=== PATIENT | male | born 1925 | race African-American/Black ===

== ENCOUNTER 2016-12-04 16:27 | Observation (INO) ==
[2016-12-04 17:55] LABS: Basophils # 0.1 K/mcL (0.0-0.2); Basophils % 0.8 %; Eosinophils # 1.1 K/mcL (0.0-0.6); Eosinophils % 17.5 %; Hematocrit 41.2 % (37.5-50.1); Hemoglobin 13.3 g/dL (12.9-16.9); Immature Granulocytes % 0.2 % (0-4); Lymphocytes # 1.6 K/mcL (0.6-4.6); Lymphocytes % 24.2 %; Mean Corpuscular HGB Conc 32.3 g/dL (31.6-35.5); Mean Corpuscular Hemoglobin 31.4 pg (28.0-33.3); Mean Corpuscular Volume 97.2 fL (83.0-100.0); Mean Platelet Volume 10.8 fL (9.4-12.4); Monocytes # 0.6 K/mcL (0.0-1.3); Monocytes % 9.6 %; Neutrophils # 3.1 K/mcL (1.6-8.9); Platelet Count 143 K/mcL (140-400); Red Blood Count 4.24 M/mcL (4.19-5.50); Red Cell Distribution Width 13.4 % (11.5-14.5); Segmented Neutrophils % 47.7 %
[2016-12-04 18:02] LABS: Prothrombin Time 10.6 Seconds (9.4-12.1)
[2016-12-04 18:04] LABS: Activated Partial Thrombo Time 37.7 Seconds (26.0-36.0)
[2016-12-04 18:08] LABS: Albumin 4.1 g/dL (3.5-5.0); Albumin/Globulin Ratio 0.8 (1.1-2.2); Bilirubin,Total 0.5 mg/dL (0.2-1.2); Calcium 9.6 mg/dL (8.6-10.8); Globulin 5.3 g/dL (2.4-3.5); Potassium 3.7 mEq/L (3.5-4.5); Total Protein 9.4 g/dL (6.0-8.3)
[2016-12-04 20:01] LABS: Bilirubin,Urine Small (Negative); Blood,Urine Trace (Negative); Clarity,Urine Cloudy (Clear); Color,Urine Yellow (Yellow); Glucose,Urine (UA) 500 mg/dL (Normal); Ketones,Urine Negative (Negative); Leukocyte Esterase,Urine Moderate (Negative); Nitrite,Urine Negative (Negative); Protein,Urine 100 mg/dL (Neg-Trace); Urobilinogen,Urine Normal (Normal)
[2016-12-04 20:03] LABS: Bacteria,Urine None Seen per hpf (None-Few); Hyaline Casts,Urine None Seen per lpf (None-Few); Squamous Epithelial Cell,Urine Many per lpf (None-Few)
--- NOTE | 2016-12-04 20:34 | Emergency Department Note ---
Disposition Clinical Impression: Elevated troponin Disposition: Admitted As Inpatient Referrals: Dao Klein MD [Primary Care Provider] - Forms: ED Satisfaction Letter SOB HPI - General Chief Complaint: ED Shortness of Breath/Dyspnea Stated Complaint: pneumonia Time Seen by Provider: 12/04/16 16:34 Source: patient, family Limitations: no limitations Nursing Notes Reviewed: Yes Vital Signs Reviewed: Yes - History of Present Illness Patient presents for admission due to pneumonia on chest x-ray. Patient has a cough congestion for a few days and saw his primary care provider who stated he had pneumonia need to be admitted. Patient denies fevers or chills he has had some shortness of breath and cough. Patient denies numbness and tingling associated with this. Patient also complains neck pain but this is been ongoing for him. Patient denies numbness and tingling. - Related Data Home Medications Medication Instructions Recorded Confirmed Aspirin Enteric Coated [Aspirin EC] 81 mg PO QAM 09/21/15 12/04/16 Atorvastatin [Lipitor] 10 mg PO QAM 09/21/15 12/04/16 Calcium Acetate [Phos-LO] 1,334 mg PO TIDWM 09/21/15 12/04/16 Citalopram [CeleXA] 10 mg PO QAM 09/21/15 12/04/16 Finasteride [Proscar] 5 mg PO QAM 09/21/15 12/04/16 Insulin Aspart Prot/Insuln Asp 3 - 10 unit SQ TID MDD per sliding 09/21/1512/04 [Novolog Mix 70-30 Flexpen Syrn] scale Losartan [Cozaar] 25 mg PO QAM 09/21/15 12/04/16 Multivitamin/Iron/Folic Acid 1 tab PO QAM 09/21/15 12/04/16 [Centrum Complete Multivit Tab] Nitroglycerin 0.4 mg SL AD PRN 09/21/15 12/04/16 Carvedilol 3.125 mg PO BID 09/21/16 12/04/16 Docusate Sodium [Dok] 100 mg PO BID 09/21/16 12/04/16 Loratadine [Claritin] 10 mg PO DAILY 09/21/16 12/04/16 Omeprazole [PriLOSEC] 20 mg PO DAILY 09/21/16 12/04/16 Insulin Glargine,Hum.rec.anlog 4 unit SQ QAM AND QHS 10/21/16 12/04/16 [Lantus Solostar] Ipratropium/Albuterol Neb [Duoneb] 3 ml IH Q6HR 10/21/16 12/04/16 CloNIDine HCl 0.1 mg PO TID PRN 12/04/16 12/04/16 Previous Rx's Medication Instructions Recorded Clopidogrel Bisulfate [Plavix] 75 mg PO DAILY 30 Days 07/17/16 Isosorbide MONOnitrate (24 HR) 30 mg PO DAILY #20 tab.er.24h 10/21/16 [Imdur] Allergies Allergy/AdvReac Type Severity Reaction Status Date / Time No Known Allergies Allergy Verified 07/12/16 09:25 All systems ED: reviewed and negative except as stated. Past Medical History - Past Medical History Source: patient Medical history: Reports: CHF, coronary artery disease, DVT, diabetes, dialysis , hyperlipidemia, hypertension, renal disease, other Surgical history: Reports: herniorrhaphy, other Psychiatric history: Reports: no psych history - Social History Smoking Status: Never smoker Smokeless Tobacco Status: No Alcohol use: Reports: occasionally Drug use: Reports: none Physical Exam - General Limitations: no limitations General appearance: alert, in no apparent distress - Head Head exam: atraumatic, normocephalic, normal inspection - Eye Eye exam: Present: normal appearance, PERRL, EOMI - ENT ENT exam: normal exam, normal oropharynx, mucous membranes moist - Neck Neck exam: Present: normal inspection, full ROM, trachea midline - Chest Chest inspection: Present: normal inspection, symmetric chest wall rise - Respiratory Respiratory exam: Present: normal lung sounds bilaterally - Cardiovascular Cardiovascular exam: Present: regular rate, normal rhythm, normal heart sounds - Abdominal Exam Abdominal exam: Present: soft, Non-Tender. Absent: tenderness, distention, guarding, rebound, rigidity - Extremities Exam Extremities exam: Present: normal inspection, full ROM. Absent: tenderness, pedal edema - Back Exam Back exam: Present: normal inspection, full ROM. Absent: tenderness - Neurological Exam Neurological exam: Present: alert, oriented X3 - Psychiatric Psychiatric exam: Present: normal affect, normal mood - Skin Skin exam: Present: warm, dry, intact, normal color Course Vital Signs Temperature 97.9 F 12/04/16 16:29 Pulse Rate 86 12/04/16 16:29 Respiratory Rate 18 12/04/16 16:29 Blood Pressure 176/92 12/04/16 16:29 O2 Sat by Pulse Oximetry 94 L 12/04/16 16:29 Temperature 97.9 F 12/04/16 16:29 Pulse Rate 79 12/04/16 19:35 Respiratory Rate 12 12/04/16 19:35 Blood Pressure 176/94 12/04/16 19:35 O2 Sat by Pulse Oximetry 99 12/04/16 19:35 Oxygen Delivery Oxygen Delivery Room Air Shortness of Breath/Dyspnea - Differential Diagnosis Likely: acute exacerbation of chronic obstructive airways disease, congestive heart failure, pneumonia, pulmonary embolism - Lab Data Lab results reviewed: Yes I reviewed the patient's lab results. Result diagrams: 12/04/16 17:46 12/04/16 17:46 Lab Results 12/04/16 12/04/16 12/04/16 Range/Units 17:46 17:46 17:46 WBC 6.5 (4.3-11.1) K/mcL RBC 4.24 (4.19-5.50) M/mcL Hgb 13.3 (12.9-16.9) g/dL Hct 41.2 (37.5-50.1) % MCV 97.2 (83.0-100.0) fL MCH 31.4 (28.0-33.3) pg MCHC 32.3 (31.6-35.5) g/dL RDW 13.4 (11.5-14.5) % Plt Count 143 (140-400) K/mcL MPV 10.8 (9.4-12.4) fL Immature Gran % 0.2 (0-4) % Seg Neutrophils % 47.7 % Lymphocytes % 24.2 % Monocytes % 9.6 % Eosinophils % 17.5 % Basophils % 0.8 % Neutrophils # 3.1 (1.6-8.9) K/mcL Lymphocytes # 1.6 (0.6-4.6) K/mcL Monocytes # 0.6 (0.0-1.3) K/mcL Eosinophils # 1.1 H (0.0-0.6) K/mcL Basophils # 0.1 (0.0-0.2) K/mcL PT 10.6 (9.4-12.1) Seconds INR 1.0 APTT 37.7 H (26.0-36.0) Seconds Sodium 138 (136-145) mEq/L Potassium 3.7 (3.5-4.5) mEq/L Chloride 95 L (98-109) mEq/L Carbon Dioxide 29 (19-29) mEq/L BUN 14 (8-26) mg/dL Creatinine 3.07 H (0.72-1.25) mg/dL Est GFR ( Amer) 23 L (> 60) Est GFR (Non-Af Amer) 19 L (> 60) BUN/Creatinine Ratio 5 L (6-26) Glucose 246 H (70-99) mg/dL Calculated Osmolality 295 (280-300) Lactic Acid (0.5-2.2) mmol/L Calcium 9.6 (8.6-10.8) mg/dL Total Bilirubin 0.5 (0.2-1.2) mg/dL AST 20 (5-34) Units/L ALT 11 (0-55) Units/L Alkaline Phosphatase 157 H (38-126) Units/L Troponin I (0-0.03) ng/mL Serum Total Protein 9.4 H (6.0-8.3) g/dL Albumin 4.1 (3.5-5.0) g/dL Globulin 5.3 H (2.4-3.5) g/dL Albumin/Globulin Ratio 0.8 L (1.1-2.2) Urine Color (Yellow) Urine Clarity (Clear) Urine pH (5.0-8.0) pH Units Ur Specific [place] (1.010-1.025) Urine Protein (Neg-Trace) mg/dL Urine Glucose (UA) (Normal) mg/dL Urine Ketones (Negative) mg/dL Urine Blood (Negative) Urine Nitrite (Negative) Urine Bilirubin (Negative) Urine Urobilinogen (Normal) mg/dL Ur Leukocyte Esterase (Negative) Urine Microscopic RBC (0-3) per hpf Urine Microscopic WBC (0-3) per hpf Ur Squamous Epith Cells (None-Few) per lpf Urine Bacteria (None-Few) per hpf Hyaline Casts (None-Few) per lpf Ur Culture Indicated? (NO) 12/04/16 12/04/16 12/04/16 Range/Units 17:46 17:46 19:50 WBC (4.3-11.1) K/mcL RBC (4.19-5.50) M/mcL Hgb (12.9-16.9) g/dL Hct (37.5-50.1) % MCV (83.0-100.0) fL MCH (28.0-33.3) pg MCHC (31.6-35.5) g/dL RDW (11.5-14.5) % Plt Count (140-400) K/mcL MPV (9.4-12.4) fL Immature Gran % (0-4) % Seg Neutrophils % % Lymphocytes % % Monocytes % % Eosinophils % % Basophils % % Neutrophils # (1.6-8.9) K/mcL Lymphocytes # (0.6-4.6) K/mcL Monocytes # (0.0-1.3) K/mcL Eosinophils # (0.0-0.6) K/mcL Basophils # (0.0-0.2) K/mcL PT (9.4-12.1) Seconds INR APTT (26.0-36.0) Seconds Sodium (136-145) mEq/L Potassium (3.5-4.5) mEq/L Chloride (98-109) mEq/L Carbon Dioxide (19-29) mEq/L BUN (8-26) mg/dL Creatinine (0.72-1.25) mg/dL Est GFR ( Amer) (> 60) Est GFR (Non-Af Amer) (> 60) BUN/Creatinine Ratio (6-26) Glucose (70-99) mg/dL Calculated Osmolality (280-300) Lactic Acid 1.3 (0.5-2.2) mmol/L Calcium (8.6-10.8) mg/dL Total Bilirubin (0.2-1.2) mg/dL AST (5-34) Units/L ALT (0-55) Units/L Alkaline Phosphatase (38-126) Units/L Troponin I 0.82 H* (0-0.03) ng/mL Serum Total Protein (6.0-8.3) g/dL Albumin (3.5-5.0) g/dL Globulin (2.4-3.5) g/dL Albumin/Globulin Ratio (1.1-2.2) Urine Color Yellow (Yellow) Urine Clarity Cloudy A (Clear) Urine pH 6.0 (5.0-8.0) pH Units Ur Specific [place] 1.020 (1.010-1.025) Urine Protein 100 H (Neg-Trace) mg/dL Urine Glucose (UA) 500 H (Normal) mg/dL Urine Ketones Negative (Negative) mg/dL Urine Blood Trace H (Negative) Urine Nitrite Negative (Negative) Urine Bilirubin Small H (Negative) Urine Urobilinogen Normal (Normal) mg/dL Ur Leukocyte Esterase Moderate H (Negative) Urine Microscopic RBC 3-5 H (0-3) per hpf Urine Microscopic WBC 5-15 H (0-3) per hpf Ur Squamous Epith Cells Many H (None-Few) per lpf Urine Bacteria None Seen (None-Few) per hpf Hyaline Casts None Seen (None-Few) per lpf Ur Culture Indicated? YES A (NO) - Radiology Data Radiology results reviewed: Yes I reviewed the patient's radiology results. Chest X-Ray 12/04/16 16:35 IMPRESSION: Minimal bibasilar atelectasis D/ / Cornelio Badillo MD / Cornelio Badillo MD Interpreting Provider: Cornelio Badillo MD Cervical Spine CT 12/04/16 18:35 IMPRESSION: No acute abnormality of the cervical spine. Advanced multilevel degenerative changes with varying degrees of moderate to severe bilateral neural foraminal stenosis at multiple levels. Consider nonemergent MRI for further evaluation. D/ / David Tenorio MD / David Tenorio MD Interpreting Provider: David Tenorio MD - EKG Data EKG attestation: Yes I reviewed and interpreted this EKG. EKG results narrative: EKG shows multiple areas of T-wave inversions. But this appears to be present on previous EKG that was performed 10/18/2016. Critical Care Time Total Critical Care Time: 30 Attestation: Critical care performed: Time is exclusive of separately billable procedures. Time includes: direct patient care, patient reassessment, coordination of patient care, interpretation of data (laboratory data, radiology data, and respiratory data), review of patient's medical records, medical consultation and documentation of patient care. Procedures included in critical care time: Procedures excluded from critical care time:
[2016-12-04] MEDS ORDERED: Ondansetron 4 MG/2 ML VIAL IVP PRN (22:43)
[2016-12-04] MEDS ORDERED: D5% in Water 1,000 ML IV PRN (22:43)
[2016-12-04] MEDS ORDERED: Naloxone 0.4 MG/ML INJ IVP PRN (22:43)
[2016-12-04] MEDS ORDERED: *HR* Morphine 2 MG/ML SYRINGE IVP PRN (22:43)
[2016-12-04] MEDS ORDERED: Dextrose Gel 15 GM PO PRN ×2 (22:43)
[2016-12-04] MEDS ORDERED: *HR* Dextrose 50 % in Water (Syg) 50 ML SYRINGE IVP PRN (22:43)
[2016-12-04] MEDS ORDERED: Albuterol 2.5 MG/3 ML NEBULIZER IH PRN (22:49)
[2016-12-04] MEDS ORDERED: Nitroglycerin 0.4 MG TAB.SUBL SL PRN (22:51)
--- NOTE | 2016-12-04 23:02 | Internal Med History&Physical ---
Date of Encounter: 12/04/16 Time of Encounter: 22:54 Assessment and Plan (1) Hypertensive urgency Current visit: Yes Status: Acute 1. Continue home meds as appropriate and treat with IV hydralazine to maintain SBP < 160. 2. If BP remains uncontrolled and we are unable to control it with oral meds, will start IV Nicardipine drip. 3. Monitor closely and adjust meds as necessary. (2) Elevated troponin Current visit: Yes Status: Acute 1. Likely due to hypertensive urgency. 2. Pt denies CP. EKG unchanged. 3. Monitor serial troponins and EKG's. 4. Continue home meds as appropriate. 5. Control BP as noted above. 6. Will order ECHO and consult cardiology to assess in the morning. (3) LRTI (lower respiratory tract infection) Current visit: Yes Status: Acute 1. CXR negative. 2. Pt symptoms suggestive of viral process and/or early pneumonia. 3. Blood cultures drawn. 4. Will treat with IV antibiotics and de-escalate once patient improves and/or cultures resulted. 5. Oxygen and aerosols as needed. (4) ESRD (end stage renal disease) Current visit: Yes Status: Chronic 1. Consult nephrology for ongoing management. (5) IDDM (insulin dependent diabetes mellitus) Current visit: Yes Status: Chronic 1. Continue home dose LAntus and low dose SSI. 2. Monitor and adjust insulin as needed. (6) UTI (urinary tract infection) Current visit: Yes Status: Acute 1. Culture urine. 2. Will treat with IV Rocephin and follow cultures. Qualifiers: Urinary tract infection type: acute cystitis Hematuria presence: without hematuria Qualified Code(s): N30.00 - Acute cystitis without hematuria (7) DVT prophylaxis Current visit: Yes Status: Acute 1. Heparin SQ. Internal Medicine - H&P: HPI Chief complaint: chest congestion; fever; chills; weak Admitted From: Emergency Dept Plans for Post Hospital Care: Home History of present illness: Mr. Dawson is a 89 year old male who presents to ER today with complaints of weakness, cough, congestion, fevers, chills, and associated shortness of breath. Workup in the ER revealed patient to have a troponin elevation and suspected UTI on labs. Flu testing was negative. He was subsequently admitted to the hospitalist service. Upon my assessment of the patient, he is coughing and feels ill but nontoxic. He does not appear to be any major distress other than the coughing paroxysms he has. He denies any chest pain, but he does feel a little short of breath with his coughing fits. He denies any nausea, vomiting, or diarrhea. He denies any foul-smelling urine. He did complain of some dysuria, however. He is on dialysis, but he still makes some urine. He had dialysis earlier today. He denies any recent ill contacts. He denies any weight gain, swelling, increasing abdominal girth, or pedal edema. He and his daughter both feel that he may be a little fluid/volume depleted after his dialysis today. He is on a Wednesday dialysis schedule and he has not missed any dialysis recently. Of note, patient's BP was very elevated in ER -- running 170-1989's/'s. I suspect his troponin elevation is due to uncontrolled hypertension. Past Med Surg Social Fam HX - Past Medical History Attestation: Yes The following information was validated with the patient. Source: patient, old records reviewed, obtained from family Medical history: CHF, coronary artery disease, DVT, diabetes, dialysis, hyperlipidemia, hypertension, renal disease, other Psychiatric history: no psych history - Past Surgical History Surgical History: herniorrhaphy, other - Social History Smoking Status: Never smoker Smokeless Tobacco Status: No Alcohol use: occasionally Drug use: none Current living situation: Home Activity Level: Independent ambulation Recent Out of Country Travel Within the Last 8 Weeks: No - Family History Mother Living Status: Father Living Status: Internal Medicine - H&P: Meds Aspirin Enteric Coated [Aspirin EC] 81 mg PO QAM 09/21/15 [History] Atorvastatin [Lipitor] 10 mg PO QAM 09/21/15 [History] Calcium Acetate [Phos-LO] 1,334 mg PO TIDWM 09/21/15 [History] Citalopram [CeleXA] 10 mg PO QAM 09/21/15 [History] Finasteride [Proscar] 5 mg PO QAM 09/21/15 [History] Insulin Aspart Prot/Insuln Asp [Novolog Mix 70-30 Flexpen Syrn] 3 - 10 unit SQ TID MDD per sliding scale 09/21/15 [History] Losartan [Cozaar] 25 mg PO QAM 09/21/15 [History] Multivitamin/Iron/Folic Acid [Centrum Complete Multivit Tab] 1 tab PO QAM [History] Nitroglycerin 0.4 mg SL AD PRN 09/21/15 [History] Clopidogrel Bisulfate [Plavix] 75 mg PO DAILY 30 Days 07/17/16 [Rx] Carvedilol 3.125 mg PO BID 09/21/16 [History] Docusate Sodium [Dok] 100 mg PO BID 09/21/16 [History] Loratadine [Claritin] 10 mg PO DAILY 09/21/16 [History] Omeprazole [PriLOSEC] 20 mg PO DAILY 09/21/16 [History] Insulin Glargine,Hum.rec.anlog [Lantus Solostar] 4 unit SQ QAM AND QHS 10/21/16 [History] Ipratropium/Albuterol Neb [Duoneb] 3 ml IH Q6HR 10/21/16 [History] Isosorbide MONOnitrate (24 HR) [Imdur] 30 mg PO DAILY #20 tab.er.24h 10/21/16 [ Rx] CloNIDine HCl 0.1 mg PO TID PRN 12/04/16 [History] Allergies No Known Allergies Allergy (Verified 07/12/16 09:25) - Constitutional Constitutional: chills, fever(s), weakness, no night sweats - EENT Eyes: no blurry vision, no change in vision Ears: no ear pain, no tinnitus Nose, mouth and throat: neck pain, no nasal congestion, no sinus pain, no sinus pressure, no sore throat - Cardiovascular Cardiovascular ROS IM: dyspnea, dyspnea on exertion, no chest pain, no diaphoresis, no edema, no lightheadedness, no palpitations - Respiratory Respiratory: cough, dyspnea, dyspnea on exertion, chest congestion, excessive phlegm production, change in phlegm color, no hemoptysis, no wheezing, no pain on inspiration - Gastrointestinal Gastrointestinal: no abdominal pain, no diarrhea, no hematemesis, no hematochezia, no melena, no vomiting - Genitourinary Genitourinary ROS male: dysuria, no flank pain, no hematuria - Musculoskeletal Musculoskeletal ROS IM: arthralgias, back pain, muscle weakness, neck pain - Integumentary Integumentary IM: no rash, no jaundice - Neurological Neurological ROS: no focal weakness, no frequent falls, no headache(s) - Psychiatric Psychiatric: no anxiety, no depression - Endocrine Endocrine IM: no cold intolerance, no heat intolerance, no polydipsia, no polyuria - Hematologic/Lymphatic Hematologic/Lymphatic: no easy bruising, no lymphadenopathy - Allergic/Immunologic Allergic/Immunologic: no wheezing, no GI upset with certain foods - Constitutional Vitals: Temp Pulse Resp BP Pulse Ox 97.9 F 79 20 199/98 99 12/04/16 16:29 12/04/16 19:35 12/04/16 21:14 12/04/16 21:14 12/04/16 19:35 General appearance: Present: cooperative, A&O X 3, pleasant, no acute distress, answers questions appropriately - Head Head exam: Present: atraumatic, normal inspection - Expanded Head Exam Head exam expanded: Absent: abrasion, contusion, general tenderness - Eye Eye exam: Present: EOMI, normal appearance, PERRL. Absent: scleral icterus Pupils: Present: normal accommodation - ENT ENT exam: Present: mucous membranes dry, normal exam, normal oropharynx Additional comments: mild nasal congestion; no nasal drainage; no post-nasal drip - Neck Neck exam general surgery: Present: full ROM, normal inspection, supple, trachea midline. Absent: lymphadenopathy, nuchal rigidity - Respiratory Respiratory exam: Present: rhonchi. Absent: accessory muscle use, chest wall tenderness, rales, respiratory distress, wheezes, tachypnea Additional comments: + coughing paroxysms - Cardiovascular Cardiovascular exam: Present: distant heart sounds, RRR, +S1, +S2. Absent: diastolic murmur, JVD, systolic murmur - GI/Abdominal GI/Abdominal exam: Present: normal bowel sounds, soft. Absent: guarding, hepatomegaly, mass, rebound, splenomegaly, tenderness - Extremities Exam Extremities exam: Present: full ROM, normal capillary refill, warm, radial pulses palpable and symetrical. Absent: calf tenderness, joint swelling, pedal edema - Back Exam Back exam: Present: normal inspection. Absent: CVA tenderness (L), CVA tenderness (R) - Neurological Exam Neurological exam: Present: alert, CN II-XII intact, oriented X3, no focal deficits, strengths equal and symetr throughout - Psychiatric Psychiatric exam: Present: normal affect, normal mood - Skin Skin exam: Present: dry, warm. Absent: rash Additional comments: + skin tenting -- mild Internal Med - H&P Results - Labs CBC & Chem 7: 12/04/16 17:46 12/04/16 17:46 - EKG Data -: EKG Interpreted by Myself EKG shows normal: sinus rhythm - EKG Data Prior EKG available for review: yes When compared to previous EKG: there is no significant change EKG comments: 12/04/16 23:06 Sinus rhythm; Old septal [place]; subtle ST-T depression inferolaterally -- unchanged from prior EKG - Diagnostic Studies Chest x-ray Status: image reviewed by me (cardiomegaly; lungs clear)
[2016-12-04] MEDS: Acetaminophen 325 MG TABLET PO PRN (23:51)
[2016-12-04] MEDS: cloNIDine HCl 0.1 MG TABLET PO SCH (23:51)
[2016-12-05] MEDS: Azithromycin 500 MG in D5% in Water 250 ML IVPB SCH (00:36)
[2016-12-05] MEDS: *HR* Heparin 5,000 UNIT/ML VIAL SQ SCH ×3 (00:37→19:55)
[2016-12-05 01:12] LABS: Basophils # 0.1 K/mcL (0.0-0.2); Basophils % 0.8 %; Eosinophils # 1.1 K/mcL (0.0-0.6); Eosinophils % 16.5 %; Hematocrit 33.1 % (37.5-50.1); Immature Granulocytes % 0.2 % (0-4); Lymphocytes # 1.7 K/mcL (0.6-4.6); Lymphocytes % 24.9 %; Mean Corpuscular HGB Conc 32.3 g/dL (31.6-35.5); Mean Corpuscular Hemoglobin 31.4 pg (28.0-33.3); Mean Corpuscular Volume 97.1 fL (83.0-100.0); Mean Platelet Volume 11.5 fL (9.4-12.4); Monocytes # 0.8 K/mcL (0.0-1.3); Monocytes % 11.6 %; Neutrophils # 3.1 K/mcL (1.6-8.9); Platelet Count 123 K/mcL (140-400); Red Blood Count 3.41 M/mcL (4.19-5.50); Red Cell Distribution Width 13.2 % (11.5-14.5)
[2016-12-05 01:13] LABS: Hemoglobin 10.7 g/dL (12.9-16.9)
[2016-12-05 01:31] LABS: Albumin/Globulin Ratio 0.8 (1.1-2.2); Bilirubin,Total 0.4 mg/dL (0.2-1.2); Calcium 8.7 mg/dL (8.6-10.8); Chol/HDL Ratio 2.9 (0-4.9); Globulin 3.8 g/dL (2.4-3.5); Magnesium 1.5 mg/dL (1.6-2.6); Potassium 3.9 mEq/L (3.5-4.5)
[2016-12-05 01:32] LABS: Albumin 3.1 g/dL (3.5-5.0); Total Protein 6.9 g/dL (6.0-8.3)
[2016-12-05] MEDS: Acetaminophen 325 MG TABLET PO PRN (06:50)
--- NOTE | 2016-12-05 08:17 | Cardiology Consult Note ---
<Sd Dobson Brandon - Last Filed: 12/05/16 08:17> Date of Encounter: 12/05/16 Time of Encounter: 08:16 Assessment and Plan (1) Elevated troponin Current Visit: Yes Status: Acute Troponins 0.82, 0.60, 0.61 in setting of ESRD on dialysis, lower respiratory tract infection, UTI, hypertensive urgency with BP as high as 185/118. Likely demand ischemia, nondiagnostic for ACS. Pt denies any chest pain. EKG similar to prior. Echo 09/2016 shows EF 45-50%, unchanged from 04/2016. No further cardiac testing warranted. Pt already on optimal cardiac meds--ASA, Plavix, Statin, BB, Imdur. Anticipate sign off once seen and evaluated by Dr. Austin. Reconsult PRN. (2) Hypertensive urgency Current Visit: Yes Status: Acute IV hydralazine to maintain SBP < 160. Will increase Cozaar to 50mg daily. Adjust antihypertensives as necessary. (3) ESRD (end stage renal disease) Current Visit: Yes Status: Chronic On dialysis Wednesday, Wednesday, Wednesday. Nephrology consulted for management. Discussion w patient/family: The assessment and plan as outlined above was discussed with the patient and/or family members who expressed understanding and agreement. All questions were answered. Thank you for involving us in the care of your patient. Please call with any questions. I will discuss all the above with Dr. Austin and make changes as necessary. History of Present Illness Consult date: 12/05/16 Requesting physician: Swapnil Ramirez Consult reason: elevated troponin Chief complaint: weakness History of present illness: Mr. Dawson is a 89 year old male with PMH of ESRD on dialysis, DVT, DM, HTN, HLD, CHF who presented to ER with complaints of weakness, cough, congestion, fevers, chills, and associated shortness of breath. Workup in the ER revealed patient to have a troponin elevation and suspected UTI on labs. Flu testing was negative. He was admitted to the hospitalist service. Reports feeling short of breath with his coughing fits--productive, yellow sputum. He denies any weight gain, swelling, increasing abdominal girth, or pedal edema. He has also been diagnosed with lower respiratory tract infection. Troponins 0.82, 0.60, 0.61. Pt denies chest pain. BP as high as 185/118 this AM. Echo 09/2016 EF 45-50%, mild AR and MR, no change since the echo 04/2016. Questioned about CAD. Pt denies any stents, states he has been told he had a cath in the past, but he does not remember. Past Med Surg Social Fam HX - Past Medical History Medical history: CHF, coronary artery disease, DVT, diabetes, dialysis, hyperlipidemia, hypertension, renal disease, other Psychiatric history: no psych history - Past Surgical History Surgical History: herniorrhaphy - Social History Smoking Status: Never smoker Smokeless Tobacco Status: No Alcohol use: none Drug use: none - Family History Mother Living Status: Father Living Status: Medications and Allergies Aspirin Enteric Coated [Aspirin EC] 81 mg PO QAM 09/21/15 [History] Atorvastatin [Lipitor] 10 mg PO QAM 09/21/15 [History] Calcium Acetate [Phos-LO] 1,334 mg PO TIDWM 09/21/15 [History] Citalopram [CeleXA] 10 mg PO QAM 09/21/15 [History] Finasteride [Proscar] 5 mg PO QAM 09/21/15 [History] Insulin Aspart Prot/Insuln Asp [Novolog Mix 70-30 Flexpen Syrn] 3 - 10 unit SQ TID MDD per sliding scale 09/21/15 [History] Losartan [Cozaar] 25 mg PO QAM 09/21/15 [History] Multivitamin/Iron/Folic Acid [Centrum Complete Multivit Tab] 1 tab PO QAM [History] Nitroglycerin 0.4 mg SL AD PRN 09/21/15 [History] Clopidogrel Bisulfate [Plavix] 75 mg PO DAILY 30 Days 07/17/16 [Rx] Carvedilol 3.125 mg PO BID 09/21/16 [History] Docusate Sodium [Dok] 100 mg PO BID 09/21/16 [History] Loratadine [Claritin] 10 mg PO DAILY 09/21/16 [History] Omeprazole [PriLOSEC] 20 mg PO DAILY 09/21/16 [History] Insulin Glargine,Hum.rec.anlog [Lantus Solostar] 4 unit SQ QAM AND QHS 10/21/16 [History] Ipratropium/Albuterol Neb [Duoneb] 3 ml IH Q6HR 10/21/16 [History] Isosorbide MONOnitrate (24 HR) [Imdur] 30 mg PO DAILY #20 tab.er.24h 10/21/16 [ Rx] CloNIDine HCl 0.1 mg PO TID PRN 12/04/16 [History] Allergies No Known Allergies Allergy (Verified 07/12/16 09:25) All Systems Review: A 10-system review of systems was performed and is negative for pertinent findings except as documented above in the HPI. - Constitutional Constitutional: chills, fever(s), weakness - Cardiovascular Cardiovascular: as per HPI, dyspnea at rest, dyspnea on exertion - Respiratory Respiratory: cough, dyspnea Physical Examination Vital Signs, Last 4 Hours Temp Pulse Resp BP Pulse Ox 12/05/16 07:06 172/110 12/05/16 06:59 97.8 F 86 16 185/118 94 L 12/05/16 05:35 97.6 F 82 16 159/79 95 Vital Signs Temp Pulse Resp BP Pulse Ox 12/05/16 07:06 172/110 12/05/16 06:59 97.8 F 86 16 185/118 94 L 12/05/16 05:35 97.6 F 82 16 159/79 95 12/05/16 02:34 97.5 F L 83 16 153/81 95 12/04/16 23:41 97.9 F 89 18 132/63 93 L 12/04/16 22:54 98.5 F 63 18 89/57 96 12/04/16 21:14 20 199/98 12/04/16 19:35 79 12 176/94 99 12/04/16 17:51 95 12/04/16 16:29 97.9 F 86 18 176/92 94 L Intake and Output 12/04/16 12/05/16 12/05/16 23:59 07:59 15:59 Intake Total 100 / 100 100 / 100 Output Total 0 / 0 Balance 100 / 100 100 / 100 Intake: IV Fluids 100 / 100 Rocephin 1,000 MG In 100 / 100 Dextrose 5% (Minibag+) 100 ML 100 ML @ 200 mls/ hr IVPB Q24H [facility] Rx#: [id number] Oral 100 / 100 Output: Urine 0 / 0 Other: Weight 63.2 kg 62.2 kg Blood Glucose* 313 318 Patient Weight 12/05/16 23:59 Weight 62.2 kg General: Conversant, No Apparent Distress HEENT: Atraumatic, Normocephaly, Mucus Membranes Moist Neck: No JVD, Normal carotid pulses Cardiac: Reg Rate and Rhythm, Normal S1 and S2, No Murmur Lungs: Normal Breath Sounds, No Wheeze, Rales, Rhonchi Neuro: Alert and responsive, Other (poor historian) Skin: No rashes noted on visualized skin Musculoskeletal: No Chest Wall Tenderness Extremities: No Clubbing, No Cyanosis, No Edema, Normal Pulses Results 12/05/16 00:50 12/05/16 00:50 Lab Results 12/05/16 12/05/16 12/05/16 00:50 00:50 00:50 WBC 6.6 Hgb 10.7 L D Hct 33.1 L Plt Count 123 L Sodium 134 L Potassium 3.9 Chloride 97 L Carbon Dioxide 22 BUN 24 D Creatinine 3.58 H Glucose 411 H Calcium 8.7 Magnesium 1.5 L Total Bilirubin 0.4 AST 16 ALT 7 Alkaline Phosphatase 108 Troponin I 0.60 H* 12/05/16 06:16 WBC Hgb Hct Plt Count Sodium Potassium Chloride Carbon Dioxide BUN Creatinine Glucose Calcium Magnesium Total Bilirubin AST ALT Alkaline Phosphatase Troponin I 0.61 H* Short CBC 12/05/16 12/04/16 Range/Units 00:50 17:46 WBC 6.6 6.5 (4.3-11.1) K/mcL Hgb 10.7 L D 13.3 (12.9-16.9) g/dL Hct 33.1 L 41.2 (37.5-50.1) % Plt Count 123 L 143 (140-400) K/mcL Neutrophils # 3.1 3.1 (1.6-8.9) K/mcL BMP 12/05/16 12/04/16 Range/Units 00:50 17:46 Sodium 134 L 138 (136-145) mEq/L Potassium 3.9 3.7 (3.5-4.5) mEq/L Chloride 97 L 95 L (98-109) mEq/L Carbon Dioxide 22 29 (19-29) mEq/L BUN 24 D 14 (8-26) mg/dL Creatinine 3.58 H 3.07 H (0.72-1.25) mg/dL Glucose 411 H 246 H (70-99) mg/dL Calcium 8.7 9.6 (8.6-10.8) mg/dL Cardiac Enzymes 12/05/16 12/05/16 12/04/16 Range/Units 06:16 00:50 17:46 Troponin I 0.61 H* 0.60 H* 0.82 H* (0-0.03) ng/mL Liver Function 12/05/16 12/04/16 Range/Units 00:50 17:46 Total Bilirubin 0.4 0.5 (0.2-1.2) mg/dL AST 16 20 (5-34) Units/L ALT 7 11 (0-55) Units/L Alkaline Phosphatase 108 157 H (38-126) Units/L Albumin 3.1 L D 4.1 (3.5-5.0) g/dL Urine 12/04/16 Range/Units 19:50 Urine Color Yellow (Yellow) Urine Clarity Cloudy A (Clear) Urine pH 6.0 (5.0-8.0) pH Units Ur Specific [place] 1.020 (1.010-1.025) Urine Protein 100 H (Neg-Trace) mg/dL Urine Glucose (UA) 500 H (Normal) mg/dL Impressions Chest X-Ray 12/04/16 16:35 IMPRESSION: Minimal bibasilar atelectasis D/ / Cornelio Badillo MD / Cornelio Badillo MD Interpreting Provider: Cornelio Badillo MD Cervical Spine CT 12/04/16 18:35 IMPRESSION: No acute abnormality of the cervical spine. Advanced multilevel degenerative changes with varying degrees of moderate to severe bilateral neural foraminal stenosis at multiple levels. Consider nonemergent MRI for further evaluation. D/ / David Tenorio MD / David Tenorio MD Interpreting Provider: David Tenorio MD Active Medications Acetaminophen (Tylenol) 650 mg PO Q6HR PRN PRN Reason: Mild Pain (1-3) Stop: 06/05/17 22:44 Last Admin: 12/05/16 06:50 Dose: 650 mg Albuterol Sulfate (Proventil Neb) 2.5 mg IH Q2H PRN; Protocol PRN Reason: Shortness Of Breath/Wheezing Stop: 06/05/17 22:50 Aspirin (Aspirin Ec) 81 mg PO QAM [facility] Stop: 06/06/17 09:01 Calcium Acetate (Phos-Lo) 1,334 mg PO TIDWM [facility] Stop: 06/06/17 08:01 Carvedilol (Coreg) 3.125 mg PO BID [facility] Stop: 06/05/17 22:53 Last Admin: 12/04/16 23:51 Dose: 3.125 mg Clonidine HCl (Clonidine Hcl) 0.1 mg PO TID [facility] Stop: 06/05/17 23:01 Last Admin: 12/04/16 23:51 Dose: 0.1 mg Clopidogrel Bisulfate (Plavix) 75 mg PO DAILY [facility] Stop: 06/06/17 09:01 Dextrose/Water (Dextrose 50% (Syg)) 25 ml IVP AD PRN PRN Reason: Hypoglycemia Stop: 06/05/17 22:44 Docusate Sodium (Colace) 100 mg PO BID [facility] PRN Reason: Protocol Stop: 06/06/17 09:01 Finasteride (Proscar) 5 mg PO QAM [facility] PRN Reason: Protocol Stop: 06/06/17 09:01 Glucagon (Glucagen) 1 mg IM ONCE PRN PRN Reason: Hypoglycemia Stop: 06/05/17 22:44 Glucose (Gluctose) 15 gm PO ONCE PRN PRN Reason: Hypoglycemia Stop: 06/05/17 22:44 Glucose (Gluctose) 30 gm PO ONCE PRN PRN Reason: Hypoglycemia Stop: 06/05/17 22:44 Heparin Sodium (Porcine) (Heparin) 5,000 unit SQ Q12HCO [facility] Stop: 06/05/17 23:01 Last Admin: 12/05/16 00:37 Dose: 5,000 unit Hydralazine HCl (Hydralazine) 20 mg IVP Q6HR PRN PRN Reason: Hypertension Stop: 06/05/17 22:50 Azithromycin 500 mg/ Dextrose 250 mls @ 252 mls/hr IVPB Q24H [facility] Stop: 06/05/17 23:01 Last Admin: 12/05/16 00:36 Dose: 252 mls/hr Ceftriaxone Sodium 1,000 mg/ (Dextrose) 100 mls @ 200 mls/hr IVPB Q24H [facility] Stop: 06/05/17 23:01 Last Infusion: 12/05/16 00:38 Dose: Infused Dextrose (Dextrose 5%) 1,000 mls @ 100 mls/hr IV CONT PRN PRN Reason: HYPOGLYCEMIA Stop: 06/05/17 22:44 Insulin Detemir (Levemir) 4 unit SQ QAM AND QHS [facility] Stop: 06/06/17 09:01 Insulin Human Lispro (Humalog) 0 units SQ TIDAC [facility] PRN Reason: Protocol Stop: 06/06/17 07:31 Isosorbide Mononitrate (Imdur) 30 mg PO DAILY [facility] Stop: 06/06/17 09:01 Loratadine (Claritin) 10 mg PO DAILY [facility] PRN Reason: Protocol Stop: 06/06/17 09:01 Losartan Potassium (Cozaar) 25 mg PO QAM [facility] PRN Reason: Protocol Stop: 06/06/17 09:01 Morphine Sulfate (Morphine Sulfate) 1 mg IVP Q3H PRN PRN Reason: Chest Pain Stop: 06/05/17 22:44 Multivitamins/Calcium (Thera M Plus) [facility] [place] Stop: 06/06/17 09:01 Naloxone HCl (Narcan) 0.4 mg IVP Q2MIN PRN PRN Reason: Opioid Reversal Stop: 06/05/17 22:44 Nitroglycerin (Nitroglycerin) 0.4 mg SL AD PRN PRN Reason: Chest Pain Stop: 06/05/17 22:52 Omeprazole (Prilosec) 20 mg PO DAILY [facility] PRN Reason: Protocol Stop: 06/06/17 09:01 Ondansetron HCl (Zofran) 4 mg IVP Q8HR PRN PRN Reason: Nausea And Vomiting Stop: 06/05/17 22:44 Simvastatin (Zocor) 10 mg PO QAM [facility] Stop: 06/06/17 09:01 - Imaging and Cardiology Chest Xray: report reviewed Echo: report reviewed - EKG Interpretation EKG results cardiology: personally reviewed (SR, ST changes not new), other (12 hour tele AVG HR 82, SR) Consult Discharge Plan - Plan Referrals: Dao Klein MD [Primary Care Provider] - <Paramjit Austin David - Last Filed: 12/05/16 10:12> Date of Encounter: 12/05/16 Assessment and Plan Discussion w patient/family: The assessment and plan as outlined above was discussed with the patient and/or family members who expressed understanding and agreement. All questions were answered. Thank you for involving us in the care of your patient. Please call with any questions. History of Present Illness History of present illness: Mr. Dawson is a 89 year old male All Systems Review: A 10-system review of systems was performed and is negative for pertinent findings except as documented above in the HPI. Physical Examination Vital Signs, Last 4 Hours Temp Pulse Resp BP Pulse Ox 12/05/16 07:06 172/110 12/05/16 06:59 97.8 F 86 16 185/118 94 L Results 12/05/16 00:50 12/05/16 00:50 Lab Results 12/05/16 12/05/16 12/05/16 00:50 00:50 00:50 WBC 6.6 Hgb 10.7 L D Hct 33.1 L Plt Count 123 L Sodium 134 L Potassium 3.9 Chloride 97 L Carbon Dioxide 22 BUN 24 D Creatinine 3.58 H Glucose 411 H Calcium 8.7 Magnesium 1.5 L Total Bilirubin 0.4 AST 16 ALT 7 Alkaline Phosphatase 108 Troponin I 0.60 H* 12/05/16 06:16 WBC Hgb Hct Plt Count Sodium Potassium Chloride Carbon Dioxide BUN Creatinine Glucose Calcium Magnesium Total Bilirubin AST ALT Alkaline Phosphatase Troponin I 0.61 H* - Attending Attestation I examined this patient and my medical decision-making was reviewed with the [employer]NAGER [employer]/PA/Advanced Practice Nurse/Resident Physician. I agree with the documented findings, disposition and treatment plan as described except to the extent set forth below. pt here for sob, had dialysis yesterday Still some sob with cough No real CP VSS JVD: 10-12 cm CHest bibasalar crackles CVS: soft s3 CXR: mild CHF EKG: no acute changes sugg: extra dialysis to remove more fluid feel trop is elevated due to ESRD and fluid overload, not ischemia no indications for cath at present Thanks !
[2016-12-05] MEDS: Calcium Acetate 667 MG CAPSULE PO SCH ×3 (08:34→16:54)
[2016-12-05] MEDS: Multivit/Ca/Min/Fe/FA 1 TAB TABLET PO SCH (08:34)
[2016-12-05] MEDS: Insulin LISPRO 300 UNITS/3 ML VIAL SQ SCH ×4 (08:34→16:55)
[2016-12-05] MEDS: Loratadine 10 MG TABLET PO SCH (08:34)
[2016-12-05] MEDS: Aspirin Enteric Coated 81 MG Tablet PO SCH (08:34)
[2016-12-05] MEDS: Finasteride 5 MG TABLET PO SCH (08:35)
[2016-12-05] MEDS ORDERED: NON-FORMULARY MEDICATION 1 EACH EACH (Insulin Glargine,Hum.Rec.Anlog [Lantus Solostar] 4 U SQ SCH (09:00)
[2016-12-05] MEDS: Isosorbide MONOnitrate (24 HR) 30 MG TAB.ER.24H PO SCH (10:29)
[2016-12-05] MEDS: Insulin DETEMIR 100 UNIT/ML X5UNITS SQ SCH (10:29)
[2016-12-05] MEDS: cloNIDine HCl 0.1 MG TABLET PO SCH ×3 (10:29→19:53)
[2016-12-05] MEDS: Ipratropium/Albuterol Neb 3 ML IH SCH ×4 (11:10→22:13)
--- NOTE | 2016-12-05 11:44 | Nephrology Consult Note ---
Date of Encounter: 12/05/16 Time of Encounter: 09:00 Assessment and Plan (1) ESRD (end stage renal disease) Current Visit: Yes Status: Chronic ESRD on HD M/W/F, patient of my colleague's Dr. Stephens. His last HD was yesterday. He completed his dialysis. His DW is 60kg and at the end of his dialysis he was down to 58kg, according to the [facility] notes. Hx of aspiration and frequent PNa: Abx as per primary Hx of HTN, but typically, in reviewing the medical records/vitals from [facility], he develops mild intradialytic hypotension, so on dialysis days, hold the AM antihypertensive Rx. Next HD planned for Wednesday. Thank you for consulting the [facility] (2) LRTI (lower respiratory tract infection) Current Visit: Yes Status: Acute As per primary (3) UTI (urinary tract infection) Current Visit: Yes Status: Acute As per primary. Qualifiers: Urinary tract infection type: acute cystitis Hematuria presence: without hematuria Qualified Code(s): N30.00 - Acute cystitis without hematuria (4) Elevated troponin Current Visit: No Status: Acute Appreciated cardiology. He frequently has a mildly elevated troponin in the setting of ESRD though. History of Present Illness - Reason for Consult Consult date: 12/05/16 end stage renal disease Requesting physician: Nhan Tijerina - Chief Complaint ESRD - History of Present Illness Jalil Dawson (Topper) is a very pleasant 89 y/o gentleman with a pmh of ESRD on HD M/W/F (pt of Dr. Stephens's) who dialyzes at [facility] in [place], [place]. He presented with dyspnea this AM, and was diagnosed with PNa. He did not affirm CP, N/V/D or F/C. Dialysis history: I reviewed the [facility] records using the [employer] EMR malgorzata and he typically dialyzed 225min 2K, 138Na via a RUE AVF, and last completed HD on Wednesday (yesterday) for a full treatment. His estimated DW is 60 kg and the pt left at 58kg on Wednesday. Past Med Surg Social Fam HX - Past Medical History Medical history: CHF, coronary artery disease, DVT, diabetes, dialysis, hyperlipidemia, hypertension, renal disease, other Psychiatric history: no psych history - Past Surgical History Surgical History: herniorrhaphy - Social History Smoking Status: Never smoker Smokeless Tobacco Status: No Alcohol use: none Drug use: none - Family History Mother Living Status: Father Living Status: Medications and Allergies Aspirin Enteric Coated [Aspirin EC] 81 mg PO QAM 09/21/15 [History] Atorvastatin [Lipitor] 10 mg PO QAM 09/21/15 [History] Calcium Acetate [Phos-LO] 1,334 mg PO TIDWM 09/21/15 [History] Citalopram [CeleXA] 10 mg PO QAM 09/21/15 [History] Finasteride [Proscar] 5 mg PO QAM 09/21/15 [History] Insulin Aspart Prot/Insuln Asp [Novolog Mix 70-30 Flexpen Syrn] 3 - 10 unit SQ TID MDD per sliding scale 09/21/15 [History] Losartan [Cozaar] 25 mg PO QAM 09/21/15 [History] Multivitamin/Iron/Folic Acid [Centrum Complete Multivit Tab] 1 tab PO QAM [History] Nitroglycerin 0.4 mg SL AD PRN 09/21/15 [History] Clopidogrel Bisulfate [Plavix] 75 mg PO DAILY 30 Days 07/17/16 [Rx] Carvedilol 3.125 mg PO BID 09/21/16 [History] Docusate Sodium [Dok] 100 mg PO BID 09/21/16 [History] Loratadine [Claritin] 10 mg PO DAILY 09/21/16 [History] Omeprazole [PriLOSEC] 20 mg PO DAILY 09/21/16 [History] Insulin Glargine,Hum.rec.anlog [Lantus Solostar] 4 unit SQ QAM AND QHS 10/21/16 [History] Ipratropium/Albuterol Neb [Duoneb] 3 ml IH Q6HR 10/21/16 [History] Isosorbide MONOnitrate (24 HR) [Imdur] 30 mg PO DAILY #20 tab.er.24h 10/21/16 [ Rx] CloNIDine HCl 0.1 mg PO TID PRN 12/04/16 [History] Allergies No Known Allergies Allergy (Verified 07/12/16 09:25) Review of Systems All Systems: reviewed and no additional remarkable complaints except as stated Exam - Vital Signs Vital signs: Initial Vital Signs Temp Pulse Resp BP Pulse Ox 97.9 F 86 18 176/92 94 L 12/04/16 16:29 12/04/16 16:29 12/04/16 16:29 12/04/16 16:29 12/04/16 16:29 Vital Signs - Last 8 Hours Temp Pulse Resp BP Pulse Ox 12/05/16 11:13 98.2 F 90 18 116/70 92 L 12/05/16 07:06 172/110 12/05/16 06:59 97.8 F 86 16 185/118 94 L 12/05/16 05:35 97.6 F 82 16 159/79 95 Intake and Output 12/04/16 12/05/16 12/05/16 23:59 07:59 15:59 Intake Total 100 / 100 100 / 100 360 / 360 Output Total 0 / 0 0 / 0 Balance 100 / 100 100 / 100 360 / 360 Intake: IV Fluids 100 / 100 Rocephin 1,000 MG In 100 / 100 Dextrose 5% (Minibag+) 100 ML 100 ML @ 200 mls/ hr IVPB Q24H [facility] Rx#: [id number] Oral 100 / 100 360 / 360 Output: Urine 0 / 0 0 / 0 Other: Meal Breakfast Percent of Meal Consumed 100% Weight 63.2 kg 62.2 kg Blood Glucose* 318 368 Patient Weight 12/05/16 23:59 Weight 62.2 kg - General Appearance General appearance: well-developed, chronically ill, frail EENT: ATNC, PERRL, mucous membranes moist Neck: supple Respiratory: course breath sounds Cardiology: no edema, regular rate, normal S1, normal S2 - Dialysis Access Dialysis Vascular Access: Arteriovenous Fistula thrill: Yes bruit: Yes Gastrointestinal: normoactive bowel sounds, no tenderness Integumentary: no rash, warm and dry Neurologic: no focal deficit, no asterixis, alert and oriented x3 Musculoskeletal: no deformities, no erythema Psychiatric: mood/affect appropriate, cooperative Results - Lab Results 12/05/16 00:50 12/05/16 00:50 Most recent lab results Calcium 8.7 mg/dL (8.6-10.8) 12/05/16 00:50 Magnesium 1.5 mg/dL (1.6-2.6) L 12/05/16 00:50 Consult Discharge Plan - Plan Referrals: Dao Klein MD [Primary Care Provider] -
--- NOTE | 2016-12-05 12:39 | Internal Med Progress Note ---
Date of Encounter: 12/05/16 Time of Encounter: 12:36 - Assessment and plan (1) UTI (urinary tract infection) Current Visit: Yes Status: Acute Assessment and plan: Continue Rocephin day 2 Follow cultures Qualifiers: Urinary tract infection type: acute cystitis Hematuria presence: without hematuria Qualified Code(s): N30.00 - Acute cystitis without hematuria (2) Acute bronchitis Current Visit: Yes Status: Acute Assessment and plan: Acute bronchitis viral versus bacterial Continue Rocephin Influenza negative Check respiratory viral panel for other viruses Qualifiers: Bronchitis organism: unspecified organism Qualified Code(s): J20.9 - Acute bronchitis, unspecified (3) Elevated troponin Current Visit: Yes Status: Acute Assessment and plan: Likely secondary to demand ischemia related to end-stage renal disease (4) Hypertensive urgency Current Visit: Yes Status: Acute Assessment and plan: Losartan was increased up to 50 mg daily Continue Coreg and clonidine Continue hydralazine as needed (5) ESRD (end stage renal disease) Current Visit: Yes Status: Chronic Assessment and plan: Continue hemodialysis (6) IDDM (insulin dependent diabetes mellitus) Current Visit: Yes Status: Chronic Assessment and plan: Increase sliding scale to high dose - Time Spent With Patient Greater than 35 minutes - Subjective Interval history: Feels very short of breath, denies any chest pain at the moment. No fevers. Has been having a productive cough with yellowish phlegm for the past few days. No abdominal pain, diarrhea or dysuria. Feels very weak, does not feel comfortable going home - Constitutional Vitals: Temp Pulse Resp BP Pulse Ox 98.2 F 90 18 116/70 92 L 12/05/16 11:13 12/05/16 11:13 12/05/16 11:13 12/05/16 11:13 12/05/16 11:13 General appearance: Present: cooperative, A&O X 3, pleasant, no acute distress, answers questions appropriately - Head Head exam: Present: atraumatic, normocephalic - Eye Eye exam: Present: PERRL, conjuntiva pink, sclera anicteric Pupils: Present: PERRL - Neck Neck exam general surgery: Present: supple, trachea midline. Absent: lymphadenopathy - Respiratory Respiratory exam: Present: decreased breath sounds, CTAB. Absent: accessory muscle use, rales, rhonchi, wheezes - Cardiovascular Cardiovascular exam: Present: RRR, +S1, +S2. Absent: diastolic murmur, gallop, rubs, systolic murmur - GI/Abdominal GI/Abdominal exam: Present: normal bowel sounds, soft, no peritoneal signs. Absent: distended, tenderness - Extremities Exam Extremities exam: Present: warm, radial pulses palpable and symetrical. Absent : calf tenderness, cyanotic, pedal edema - Neurological Exam Neurological exam: Present: CN II-XII intact, oriented X3, no focal deficits. Absent: pronater drift, facial droop, speech deficit - Skin Skin exam: Present: dry, intact Internal Medicine: Result - Labs CBC & Chem 7: 12/05/16 00:50 12/05/16 00:50 Labs: Short CBC 12/05/16 Range/Units 00:50 WBC 6.6 (4.3-11.1) K/mcL Hgb 10.7 L D (12.9-16.9) g/dL Hct 33.1 L (37.5-50.1) % Plt Count 123 L (140-400) K/mcL Neutrophils # 3.1 (1.6-8.9) K/mcL BMP 12/05/16 00:50 Sodium 134 L Potassium 3.9 Chloride 97 L Carbon Dioxide 22 BUN 24 D Creatinine 3.58 H Glucose 411 H Calcium 8.7 Cardiac Enzymes 12/05/16 12/05/16 Range/Units 00:50 06:16 Troponin I 0.60 H* 0.61 H* (0-0.03) ng/mL Liver Function 12/05/16 Range/Units 00:50 Total Bilirubin 0.4 (0.2-1.2) mg/dL AST 16 (5-34) Units/L ALT 7 (0-55) Units/L Alkaline Phosphatase 108 (38-126) Units/L Albumin 3.1 L D (3.5-5.0) g/dL - ABG Interpretation ABG results: PT/INR, D-dimer PT 10.6 Seconds (9.4-12.1) 12/04/16 17:46 Consult Discharge Plan - Plan Referrals: Dao Klein MD [Primary Care Provider] -
[2016-12-05] MEDS: *HR* OxyCODONE/APAP 5/325 TABLET PO PRN (13:32)
[2016-12-05 14:21] LABS: Adenovirus Not Detected (Not Detect); Bordetella Pertussis Not Detected (Not Detect); Chlamydophila pneumoniae Not Detected (Not Detect); Coronavirus 229E Not Detected (Not Detect); Coronavirus HKU1 Not Detected (Not Detect); Coronavirus NL63 Not Detected (Not Detect); Coronavirus OC43 Not Detected (Not Detect); Human Metapneumovirus Not Detected (Not Detect); Human Rhinovirus/Enterovirus Not Detected (Not Detect); Influenza A Subtype 2009 H1 Not Detected (Not Detect); Influenza A Untypeable Not Detected (Not Detect); Influenza B Not Detected (Not Detect); Mycoplasma pneumoniae Not Detected (Not Detect); Parainfluenza Virus 1 Not Detected (Not Detect); Parainfluenza Virus 2 Not Detected (Not Detect); Parainfluenza Virus 3 Not Detected (Not Detect); Parainfluenza Virus 4 Not Detected (Not Detect); Respiratory Syncytial Virus Not Detected (Not Detect)
[2016-12-06] MEDS: Insulin DETEMIR 100 UNIT/ML X5UNITS SQ SCH ×3 (00:07→23:18)
[2016-12-06] MEDS: Azithromycin 500 MG in D5% in Water 250 ML IVPB SCH ×2 (00:45→23:13)
[2016-12-06] MEDS: Ipratropium/Albuterol Neb 3 ML IH SCH ×3 (03:49→15:29)
[2016-12-06 06:35] LABS: Hematocrit 32.9 % (37.5-50.1); Hemoglobin 10.7 g/dL (12.9-16.9); Mean Corpuscular HGB Conc 32.5 g/dL (31.6-35.5); Mean Corpuscular Hemoglobin 31.9 pg (28.0-33.3); Mean Corpuscular Volume 98.2 fL (83.0-100.0); Platelet Count 122 K/mcL (140-400); Red Blood Count 3.35 M/mcL (4.19-5.50); Red Cell Distribution Width 13.5 % (11.5-14.5)
[2016-12-06] MEDS: *HR* Heparin 5,000 UNIT/ML VIAL SQ SCH ×2 (06:35→23:11)
[2016-12-06 06:51] LABS: Calcium 9.2 mg/dL (8.6-10.8); Potassium 4.9 mEq/L (3.5-4.5)
[2016-12-06] MEDS: Insulin LISPRO 300 UNITS/3 ML VIAL SQ SCH ×5 (08:14→23:18)
[2016-12-06] MEDS: Multivit/Ca/Min/Fe/FA 1 TAB TABLET PO SCH (08:14)
[2016-12-06] MEDS: Isosorbide MONOnitrate (24 HR) 30 MG TAB.ER.24H PO SCH (08:15)
[2016-12-06] MEDS: cloNIDine HCl 0.1 MG TABLET PO SCH ×3 (08:15→22:51)
[2016-12-06] MEDS: Loratadine 10 MG TABLET PO SCH (08:15)
[2016-12-06] MEDS: Aspirin Enteric Coated 81 MG Tablet PO SCH (08:15)
[2016-12-06] MEDS: Finasteride 5 MG TABLET PO SCH (08:15)
[2016-12-06] MEDS: Calcium Acetate 667 MG CAPSULE PO SCH ×3 (08:16→16:37)
--- NOTE | 2016-12-06 08:41 | Cardiology Progress Note ---
Date of Encounter: 12/06/16 Time of Encounter: 08:39 Assessment and Plan (1) Elevated troponin Current Visit: Yes Status: Acute Troponins 0.82, 0.60, 0.61 in setting of ESRD on dialysis, lower respiratory tract infection, UTI, hypertensive urgency with BP as high as 185/118. Likely demand ischemia, nondiagnostic for ACS. Pt denies any chest pain. EKG similar to prior. Echo 09/2016 shows EF 45-50%, unchanged from 04/2016. No further cardiac testing warranted. Pt already on optimal cardiac meds--ASA, Plavix, Statin, BB, Imdur. Cardiology is signing off. Reconsult PRN. (2) Hypertensive urgency Current Visit: Yes Status: Acute Resolved. IV hydralazine to maintain SBP < 160. Increased Cozaar to 50mg daily yesterday. BP now better controlled. (3) ESRD (end stage renal disease) Current Visit: Yes Status: Chronic On dialysis Wednesday, Wednesday, Wednesday. Nephrology consulted for management. Weight has increased per documentation from 62.2kg to 63.4kg today. Dialysis planned for tomorrow. Discussion w patient/family: The assessment and plan as outlined above was discussed with the patient and/or family members who expressed understanding and agreement. All questions were answered. Thank you for involving us in the care of your patient. Please call with any questions. I will discuss all the above with Dr. Austin and make changes as necessary. Subjective Principal diagnosis: UTI, respiratory infection Interval history: Pt reports dyspnea has improved since yesterday. He denies any chest pain. Objective Vital Signs, Last 4 Hours Temp Pulse Resp BP Pulse Ox 12/06/16 08:27 95 12/06/16 07:14 97.5 F L 68 18 130/79 95 Vital Signs Temp Pulse Resp BP Pulse Ox 12/06/16 08:27 95 12/06/16 07:14 97.5 F L 68 18 130/79 95 12/06/16 04:07 97.6 F 75 20 112/61 100 12/06/16 03:51 98 12/06/16 03:49 18 98 12/05/16 23:52 97.6 F 81 20 100/55 96 12/05/16 22:13 16 93 L 12/05/16 19:23 98 F 80 20 112/57 97 12/05/16 16:51 16 96 12/05/16 16:32 98.3 F 79 16 104/67 100 12/05/16 11:13 98.2 F 90 18 116/70 92 L 12/05/16 11:10 20 92 L Intake and Output 12/05/16 12/06/16 12/06/16 23:59 07:59 15:59 Intake Total 460 / 460 200 / 200 120 / 120 Output Total 0 / 0 0 / 0 0 / 0 Balance 460 / 460 200 / 200 120 / 120 Intake: IV Fluids 100 / 100 Rocephin 1,000 MG In 100 / 100 Dextrose 5% (Minibag+) 100 ML 100 ML @ 200 mls/ hr IVPB Q24H [facility] Rx#: [id number] Oral 460 / 460 100 / 100 120 / 120 Output: Urine 0 / 0 0 / 0 0 / 0 Other: Meal Dinner Percent of Meal Consumed 75% # Voids 0 # Urine Diapers 0 # Bowel Movement Diapers 0 Weight 63.4 kg Blood Glucose* 135 162 Patient Weight 12/06/16 23:59 Weight 63.4 kg General: Conversant, No Apparent Distress HEENT: Atraumatic, Normocephaly, Mucus Membranes Moist Neck: No JVD, Normal carotid pulses Cardiac: Reg Rate and Rhythm, Normal S1 and S2, No Murmur Lungs: Other (rhonchi) Neuro: Alert and responsive, No focal deficits noted Abdomen: Soft, Non-Tender Skin: No rashes noted on visualized skin Musculoskeletal: No Chest Wall Tenderness Extremities: No Clubbing, No Cyanosis, No Edema, Normal Pulses Results 12/06/16 06:26 12/06/16 06:26 Lab Results 12/06/16 12/06/16 06:26 06:26 WBC 7.1 Hgb 10.7 L Hct 32.9 L Plt Count 122 L Sodium 135 L Potassium 4.9 H D Chloride 96 L Carbon Dioxide 27 BUN 40 H D Creatinine 5.71 H D Glucose 200 H Calcium 9.2 Short CBC 12/06/16 Range/Units 06:26 WBC 7.1 (4.3-11.1) K/mcL Hgb 10.7 L (12.9-16.9) g/dL Hct 32.9 L (37.5-50.1) % Plt Count 122 L (140-400) K/mcL BMP 12/06/16 Range/Units 06:26 Sodium 135 L (136-145) mEq/L Potassium 4.9 H D (3.5-4.5) mEq/L Chloride 96 L (98-109) mEq/L Carbon Dioxide 27 (19-29) mEq/L BUN 40 H D (8-26) mg/dL Creatinine 5.71 H D (0.72-1.25) mg/dL Glucose 200 H (70-99) mg/dL Calcium 9.2 (8.6-10.8) mg/dL Active Medications Acetaminophen (Tylenol) 650 mg PO Q6HR PRN PRN Reason: Mild Pain (1-3) Stop: 06/05/17 22:44 Last Admin: 12/05/16 06:50 Dose: 650 mg Albuterol Sulfate (Proventil Neb) 2.5 mg IH Q2H PRN; Protocol PRN Reason: Shortness Of Breath/Wheezing Stop: 06/05/17 22:50 Albuterol/Ipratropium (Duoneb) 3 ml IH [id number] [facility] PRN Reason: Protocol Stop: 06/06/17 10:31 Last Admin: 12/06/16 03:49 Dose: 3 ml Aspirin (Aspirin Ec) 81 mg PO QAM [facility] Stop: 06/06/17 09:01 Last Admin: 12/06/16 08:15 Dose: 81 mg Calcium Acetate (Phos-Lo) 1,334 mg PO TIDWM [facility] Stop: 06/06/17 08:01 Last Admin: 12/06/16 08:16 Dose: 1,334 mg Carvedilol (Coreg) 3.125 mg PO BID [facility] Stop: 06/05/17 22:53 Last Admin: 12/06/16 08:15 Dose: 3.125 mg Clonidine HCl (Clonidine Hcl) 0.1 mg PO TID [facility] Stop: 06/05/17 23:01 Last Admin: 12/06/16 08:15 Dose: 0.1 mg Clopidogrel Bisulfate (Plavix) 75 mg PO DAILY [facility] Stop: 06/06/17 09:01 Last Admin: 12/06/16 08:15 Dose: 75 mg Dextrose/Water (Dextrose 50% (Syg)) 25 ml IVP AD PRN PRN Reason: Hypoglycemia Stop: 06/05/17 22:44 Docusate Sodium (Colace) 100 mg PO BID [facility] PRN Reason: Protocol Stop: 06/06/17 09:01 Last Admin: 12/06/16 08:16 Dose: 100 mg Finasteride (Proscar) 5 mg PO QAM [facility] PRN Reason: Protocol Stop: 06/06/17 09:01 Last Admin: 12/06/16 08:15 Dose: 5 mg Glucagon (Glucagen) 1 mg IM ONCE PRN PRN Reason: Hypoglycemia Stop: 06/05/17 22:44 Glucose (Gluctose) 15 gm PO ONCE PRN PRN Reason: Hypoglycemia Stop: 06/05/17 22:44 Glucose (Gluctose) 30 gm PO ONCE PRN PRN Reason: Hypoglycemia Stop: 06/05/17 22:44 Heparin Sodium (Porcine) (Heparin) 5,000 unit SQ Q12HCO [facility] Stop: 06/05/17 23:01 Last Admin: 12/06/16 06:35 Dose: 5,000 unit Hydralazine HCl (Hydralazine) 20 mg IVP Q6HR PRN PRN Reason: Hypertension Stop: 06/05/17 22:50 Last Admin: 12/05/16 08:33 Dose: 20 mg Azithromycin 500 mg/ Dextrose 250 mls @ 252 mls/hr IVPB Q24H [facility] Stop: 06/05/17 23:01 Last Admin: 12/06/16 00:45 Dose: 252 mls/hr Ceftriaxone Sodium 1,000 mg/ (Dextrose) 100 mls @ 200 mls/hr IVPB Q24H [facility] Stop: 06/05/17 23:01 Last Infusion: 12/06/16 01:17 Dose: Infused Dextrose (Dextrose 5%) 1,000 mls @ 100 mls/hr IV CONT PRN PRN Reason: HYPOGLYCEMIA Stop: 06/05/17 22:44 Insulin Detemir (Levemir) 4 unit SQ QAM AND QHS [facility] Stop: 06/06/17 09:01 Last Admin: 12/06/16 00:07 Dose: 4 unit Insulin Human Lispro (Humalog) 0 units SQ TIDAC [facility] PRN Reason: Protocol Stop: 06/06/17 16:31 Last Admin: 12/06/16 08:14 Dose: 6 units Insulin Human Lispro (Humalog) 0 units SQ HS [facility] PRN Reason: Protocol Stop: 06/06/17 12:46 Last Admin: 12/06/16 00:00 Dose: Not Given Isosorbide Mononitrate (Imdur) 30 mg PO DAILY [facility] Stop: 06/06/17 09:01 Last Admin: 12/06/16 08:15 Dose: 30 mg Loratadine (Claritin) 10 mg PO DAILY [facility] PRN Reason: Protocol Stop: 06/06/17 09:01 Last Admin: 12/06/16 08:15 Dose: 10 mg Losartan Potassium (Cozaar) 50 mg PO QAM [facility] PRN Reason: Protocol Stop: 06/06/17 09:01 Last Admin: 12/06/16 08:15 Dose: 50 mg Morphine Sulfate (Morphine Sulfate) 1 mg IVP Q3H PRN PRN Reason: Chest Pain Stop: 06/05/17 22:44 Multivitamins/Calcium ([facility]ra M Plus) [facility] [place]: 06/06/17 09:01 Last Admin: 12/06/16 08:14 Dose: 1 tab Naloxone HCl (Narcan) 0.4 mg IVP Q2MIN PRN PRN Reason: Opioid Reversal Stop: 06/05/17 22:44 Nitroglycerin (Nitroglycerin) 0.4 mg SL AD PRN PRN Reason: Chest Pain Stop: 06/05/17 22:52 Omeprazole (Prilosec) 20 mg PO DAILY [facility] PRN Reason: Protocol Stop: 06/06/17 09:01 Last Admin: 12/06/16 08:16 Dose: 20 mg Ondansetron HCl (Zofran) 4 mg IVP Q8HR PRN PRN Reason: Nausea And Vomiting Stop: 06/05/17 22:44 Oxycodone/Acetaminophen (Percocet 5/325) 1 each PO Q8HR PRN PRN Reason: Pain Stop: 06/06/17 12:58 Last Admin: 12/05/16 13:32 Dose: 1 each Simvastatin (Zocor) 10 mg PO QAM [facility] Stop: 06/06/17 09:01 Last Admin: 12/06/16 08:16 Dose: 10 mg - EKG Interpretation EKG results cardiology: other (12 hour tele AVG HR 78, SR, no significant pauses or arrhythmias.) Consult Discharge Plan - Plan Referrals: Dao Klein MD [Primary Care Provider] - ([facility])
[2016-12-06] MEDS: *HR* OxyCODONE/APAP 5/325 TABLET PO PRN (10:26)
--- NOTE | 2016-12-06 11:06 | Internal Med Progress Note ---
Date of Encounter: 12/06/16 Time of Encounter: 11:04 - Assessment and plan (1) Acute bronchitis Current Visit: Yes Status: Acute Assessment and plan: Acute bronchitis viral versus bacterial Continue Rocephin day 3 Influenza negative, viral panel for other viruses was negative Qualifiers: Bronchitis organism: unspecified organism Qualified Code(s): J20.9 - Acute bronchitis, unspecified (2) UTI (urinary tract infection) Current Visit: Yes Status: Acute Assessment and plan: Continue Rocephin day 3 Cultures showed no growth Qualifiers: Urinary tract infection type: acute cystitis Hematuria presence: without hematuria Qualified Code(s): N30.00 - Acute cystitis without hematuria (3) Elevated troponin Current Visit: Yes Status: Acute Assessment and plan: Likely secondary to demand ischemia related to end-stage renal disease (4) Hypertensive urgency Current Visit: Yes Status: Acute Assessment and plan: Losartan was increased up to 50 mg daily Continue Coreg and clonidine Continue hydralazine as needed (5) ESRD (end stage renal disease) Current Visit: Yes Status: Chronic Assessment and plan: Continue hemodialysis (6) IDDM (insulin dependent diabetes mellitus) Current Visit: Yes Status: Chronic Assessment and plan: Increase sliding scale to high dose (7) Generalized pain Current Visit: Yes Status: Acute Assessment and plan: Consider polymyalgia rheumatica Start low dose of prednisone of 20 mg daily, will monitor the patient for quick response of pain as PMR patients respond very fast to prednisone Check an ESR, although most patients with end-stage renal disease have an elevated ESR, if it is low it would be less suspicious of PMR - Time Spent With Patient Greater than 35 minutes - Subjective Interval history: The patient is complaining of pain all over his body, his shoulders and hips. Feels very short of breath is very congested denies any chest pain at the moment. No fevers. Has been having a productive cough with yellowish phlegm for the past few days. No abdominal pain, diarrhea or dysuria. Feels very weak , does not feel comfortable going home - Constitutional Vitals: Temp Pulse Resp BP Pulse Ox 97.6 F 76 18 94/54 98 12/06/16 10:50 12/06/16 10:50 12/06/16 10:50 12/06/16 10:50 12/06/16 10:50 General appearance: Present: cooperative, A&O X 3, pleasant, no acute distress, answers questions appropriately - Head Head exam: Present: atraumatic, normocephalic - Eye Eye exam: Present: PERRL, conjuntiva pink, sclera anicteric Pupils: Present: PERRL - Neck Neck exam general surgery: Present: supple, trachea midline. Absent: lymphadenopathy - Respiratory Respiratory exam: Present: decreased breath sounds (Diffuse crackles in the right lung field), CTAB. Absent: accessory muscle use, rales, rhonchi, wheezes - Cardiovascular Cardiovascular exam: Present: RRR, +S1, +S2. Absent: diastolic murmur, gallop, rubs, systolic murmur - GI/Abdominal GI/Abdominal exam: Present: normal bowel sounds, soft, no peritoneal signs. Absent: distended, tenderness - Extremities Exam Extremities exam: Present: warm, radial pulses palpable and symetrical. Absent : calf tenderness, cyanotic, pedal edema Additional comments: Right upper extremity AV fistula - Neurological Exam Neurological exam: Present: CN II-XII intact, oriented X3, no focal deficits. Absent: pronater drift, facial droop, speech deficit - Skin Skin exam: Present: dry, intact Internal Medicine: Result - Labs CBC & Chem 7: 12/06/16 06:26 12/06/16 06:26 Labs: Short CBC 12/06/16 Range/Units 06:26 WBC 7.1 (4.3-11.1) K/mcL Hgb 10.7 L (12.9-16.9) g/dL Hct 32.9 L (37.5-50.1) % Plt Count 122 L (140-400) K/mcL BMP 12/06/16 06:26 Sodium 135 L Potassium 4.9 H D Chloride 96 L Carbon Dioxide 27 BUN 40 H D Creatinine 5.71 H D Glucose 200 H Calcium 9.2 - ABG Interpretation ABG results: PT/INR, D-dimer PT 10.6 Seconds (9.4-12.1) 12/04/16 17:46 Consult Discharge Plan - Plan Referrals: Ernie,Dao Vo MD [Primary Care Provider] - ([facility])
[2016-12-06] MEDS: predniSONE 20 MG TABLET PO SCH (11:36)
--- NOTE | 2016-12-06 12:12 | Nephrology Progress Note ---
Date of Encounter: 12/06/16 Time of Encounter: 09:30 - Assessment and Plan (1) ESRD (end stage renal disease) Current Visit: Yes Status: Chronic His DW is 60kg Next HD is planned for tomorrow (2) LRTI (lower respiratory tract infection) Current Visit: Yes Status: Acute As per primary. I suspect that this is primarily affecting his dyspnea. (3) UTI (urinary tract infection) Current Visit: Yes Status: Acute As per primary. Qualifiers: Urinary tract infection type: acute cystitis Hematuria presence: without hematuria Qualified Code(s): N30.00 - Acute cystitis without hematuria (4) Elevated troponin Current Visit: No Status: Acute As per primary. Subjective Principal diagnosis: UTI, respiratory infection Interval history: pt was s/e earlier today. He did not affirm N/V/D, but still has fatigue. Objective - Vital Signs Vital signs: Vital Signs Temp Pulse Resp BP Pulse Ox 12/06/16 11:05 16 95 12/06/16 10:50 97.6 F 76 18 94/54 98 12/06/16 08:27 95 12/06/16 07:14 97.5 F L 68 18 130/79 95 12/06/16 04:07 97.6 F 75 20 112/61 100 12/06/16 03:51 98 12/06/16 03:49 18 98 12/05/16 23:52 97.6 F 81 20 100/55 96 12/05/16 22:13 16 93 L 12/05/16 19:23 98 F 80 20 112/57 97 12/05/16 16:51 16 96 12/05/16 16:32 98.3 F 79 16 104/67 100 Intake and Output 12/05/16 12/06/16 12/06/16 23:59 07:59 15:59 Intake Total 460 / 460 200 / 200 480 / 480 Output Total 0 / 0 0 / 0 0 / 0 Balance 460 / 460 200 / 200 480 / 480 Intake: IV Fluids 100 / 100 Rocephin 1,000 MG In 100 / 100 Dextrose 5% (Minibag+) 100 ML 100 ML @ 200 mls/ hr IVPB Q24H [facility] Rx#: [id number] Oral 460 / 460 100 / 100 480 / 480 Output: Urine 0 / 0 0 / 0 0 / 0 Other: Meal Dinner Breakfast Percent of Meal Consumed 75% 100% # Voids 0 # Urine Diapers 0 # Bowel Movement Diapers 0 Weight 63.4 kg Blood Glucose* 135 162 172 Patient Weight 12/06/16 23:59 Weight 63.4 kg - General Appearance Exam: General appearance: well-developed, chronically ill, frail EENT: ATNC, PERRL, mucous membranes moist Neck: supple Respiratory: course breath sounds Cardiology: no edema, regular rate, normal S1, normal S2 - Dialysis Access Dialysis Vascular Access: Arteriovenous Fistula thrill: Yes bruit: Yes Gastrointestinal: normoactive bowel sounds, no tenderness Integumentary: no rash, warm and dry Neurologic: no focal deficit, no asterixis, alert and oriented x3 Musculoskeletal: no deformities, no erythema Psychiatric: mood/affect appropriate, cooperative - Lab 12/06/16 06:26 12/06/16 06:26 Most recent lab results Calcium 9.2 mg/dL (8.6-10.8) 12/06/16 06:26 Magnesium 1.5 mg/dL (1.6-2.6) L 12/05/16 00:50 Consult Discharge Plan - Plan Referrals: Dao Klein MD [Primary Care Provider] - (ECF)
[2016-12-07] MEDS: Ipratropium/Albuterol Neb 3 ML IH SCH ×5 (00:36→21:36)
[2016-12-07 05:22] LABS: Calcium 8.8 mg/dL (8.6-10.8); Potassium 5.7 mEq/L (3.5-4.5)
[2016-12-07] MEDS: *HR* OxyCODONE/APAP 5/325 TABLET PO PRN (06:58)
[2016-12-07] MEDS: Insulin LISPRO 300 UNITS/3 ML VIAL SQ SCH ×4 (07:04→21:18)
[2016-12-07] MEDS ORDERED: 0.9 % Sodium Chloride 250 ML IV PRN (07:41)
[2016-12-07] MEDS: predniSONE 20 MG TABLET PO SCH (08:20)
[2016-12-07] MEDS: Loratadine 10 MG TABLET PO SCH (08:20)
[2016-12-07] MEDS: Calcium Acetate 667 MG CAPSULE PO SCH ×3 (08:20→16:50)
[2016-12-07] MEDS: Aspirin Enteric Coated 81 MG Tablet PO SCH (08:20)
[2016-12-07] MEDS: Multivit/Ca/Min/Fe/FA 1 TAB TABLET PO SCH (08:21)
[2016-12-07] MEDS: Finasteride 5 MG TABLET PO SCH (08:21)
[2016-12-07] MEDS: *HR* Heparin 5,000 UNIT/ML VIAL SQ SCH ×2 (08:21→19:09)
[2016-12-07] MEDS: Insulin DETEMIR 100 UNIT/ML X5UNITS SQ SCH ×2 (08:26→21:18)
--- NOTE | 2016-12-07 09:04 | Discharge Summary ---
Date of Encounter: 12/07/16 Time of Encounter: 09:02 - Discharge Diagnosis (1) Acute bronchitis Priority: Primary Status: Acute Comments: Acute bronchitis viral versus bacterial Qualifiers: Bronchitis organism: unspecified organism Qualified Code(s): J20.9 - Acute bronchitis, unspecified (2) UTI (urinary tract infection) Priority: Primary Status: Acute Comments: Urine culture showed no growth Qualifiers: Urinary tract infection type: acute cystitis Hematuria presence: without hematuria Qualified Code(s): N30.00 - Acute cystitis without hematuria (3) Elevated troponin Priority: Secondary Status: Acute Comments: Likely secondary to demand ischemia related to end-stage renal disease (4) Hypertensive urgency Priority: Secondary Status: Acute Comments: Losartan was increased up to 50 mg daily Continue Coreg and clonidine (5) ESRD (end stage renal disease) Priority: Secondary Status: Chronic (6) IDDM (insulin dependent diabetes mellitus) Priority: Secondary Status: Chronic (7) Generalized pain Priority: Secondary Status: Acute Comments: Consider polymyalgia rheumatica - Discharge Medications Prescriptions: OxyCODONE/APAP 5/325 [Percocet 5/325 MG] 1 each PO Q8HR PRN #25 tablet PRN Reason: Pain Amoxicillin [Amoxil] 250 mg PO BID 3 Days Losartan [Cozaar] 50 mg PO QAM #30 tablet PredniSONE 20 mg PO DAILY #30 tablet Home Medications: Aspirin Enteric Coated [Aspirin EC] 81 mg PO QAM 09/21/15 [History] Atorvastatin [Lipitor] 10 mg PO QAM 09/21/15 [History] Calcium Acetate [Phos-LO] 1,334 mg PO TIDWM 09/21/15 [History] Citalopram [CeleXA] 10 mg PO QAM 09/21/15 [History] Finasteride [Proscar] 5 mg PO QAM 09/21/15 [History] Insulin Aspart Prot/Insuln Asp [Novolog Mix 70-30 Flexpen Syrn] 3 - 10 unit SQ TID MDD per sliding scale 09/21/15 [History] Multivitamin/Iron/Folic Acid [Centrum Complete Multivit Tab] 1 tab PO QAM [History] Nitroglycerin 0.4 mg SL AD PRN 09/21/15 [History] Clopidogrel Bisulfate [Plavix] 75 mg PO DAILY 30 Days 07/17/16 [Rx] Carvedilol 3.125 mg PO BID 09/21/16 [History] Docusate Sodium [Dok] 100 mg PO BID 09/21/16 [History] Loratadine [Claritin] 10 mg PO DAILY 09/21/16 [History] Omeprazole [PriLOSEC] 20 mg PO DAILY 09/21/16 [History] Insulin Glargine,Hum.rec.anlog [Lantus Solostar] 4 unit SQ QAM AND QHS 10/21/16 [History] Ipratropium/Albuterol Neb [Duoneb] 3 ml IH Q6HR 10/21/16 [History] Isosorbide MONOnitrate (24 HR) [Imdur] 30 mg PO DAILY #20 tab.er.24h 10/21/16 [ Rx] CloNIDine HCl 0.1 mg PO TID PRN 12/04/16 [History] Amoxicillin [Amoxil] 250 mg PO BID 3 Days 12/07/16 [Rx] Losartan [Cozaar] 50 mg PO QAM #30 tablet 12/07/16 [Rx] OxyCODONE/APAP 5/325 [Percocet 5/325 MG] 1 each PO Q8HR PRN #25 tablet 12/07/16 [Rx] PredniSONE 20 mg PO DAILY #30 tablet 12/07/16 [Rx] Allergies/Adverse Reactions: Allergies No Known Allergies Allergy (Verified 07/12/16 09:25) Procedures/tests Complete & Pending: Procedures Performed prior 72 hours Category Date Time Status ECG 12 lead ECG [ECG] AM 0600 Y 12/05/16 06:00 Stop Req Date of admission: 12/04/16 20:57 Primary care physician: Dao Klein MD Consults: 12/04/16 22:49 Consult to Physician [CONS] Routine Consulting Provider: Dagoberto Oh Reason for Consult: ESRD; hypertensive urgency Call Completed: No 12/04/16 22:51 Consult to Cardiology [CONS] Routine Comment: Consulting Provider: Cardiology Maritza Reason for Consult: troponin elevation Call Completed: No 12/05/16 13:01 PT [Consult to Physical Therapy] [CONS] Routine Comment: Evaluate, develop and implement POC 12/05/16 13:02 OT [Consult to Occupational Therapy] [CONS] Routine Comment: Evaluate, develop and implement POC 12/07/16 07:45 Consult to Dialysis [CONS] ONCE - Patient Status Disposition: Transfer SNF Condition: Fair Overall status at discharge: patient is progressing back to baseline - Discharge Instructions Follow Up With: Dao Klein MD [Primary Care Provider] - (ECF) Additional Instructions: Follow with primary care physician within the next 7 days. Continue dialysis. Continue 3 more days of amoxicillin. Taper down prednisone very slowly from 20 mg daily, decrease by 2.5 mg every 2-4 weeks until symptoms are better controlled. Consider doing an MRI of the cervical spine is an outpatient and to follow with orthopedic surgery if needed. - Diet and Activity Activity: increase activity as tolerated Diet: diabetic diet Hospital course: Mr. 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 Workup in the ER revealed patient to have a troponin elevation and suspected UTI on labs. Flu testing was negative. He was subsequently admitted to the hospitalist service. He did complain of some dysuria. He denied any recent ill contacts. He denies any weight gain, swelling, increasing abdominal girth, or pedal edema. He and his daughter both feel that he may be a little fluid/volume depleted after his dialysis today. Influenza negative, viral panel for other viruses was negative Upon admission the chest x-ray showed minimal bibasilar atelectases. He was started on Rocephin and azithromycin due to possible bronchitis and UTI. The patient has been stable but he was complaining of severe pain all over his body and was started on a low dose of prednisone of 20 mg daily for possible polymyalgia rheumatica, his symptoms improved considerably after starting prednisone. ESR was 49, although most patients with end-stage renal disease have an elevated ESR. She will need to taper down slowly his prednisone over the next few weeks/months. 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 No further testing was recommended and he needs to continue aspirin, Plavix, statin, Imdur and beta flip. Cardiology signed off. Cozaar was increased up to 50 m daily due to elevated pressure. Although he has been complaining of severe pain in his arm after having a peripheral IV line placed in the left upper extremity, this will be removed to resolve the pain. - Time Spent with Patient Total time spent providing and/or coordinating discharge services: Greater than 30 minutes (40 minutes) - Constitutional Vitals: Temp Pulse Resp BP Pulse Ox 97.7 F 90 16 174/87 98 12/07/16 07:03 12/07/16 07:03 12/07/16 07:03 12/07/16 07:03 12/07/16 07:03 General appearance: Present: cooperative, A&O X 3, pleasant, no acute distress, answers questions appropriately Exam: generalized weakness - Head Head exam: Present: atraumatic, normocephalic - Eye Eye exam: Present: PERRL, conjuntiva pink, sclera anicteric Pupils: Present: PERRL - Neck Neck exam general surgery: Present: supple, trachea midline. Absent: lymphadenopathy - Respiratory Respiratory exam: Present: CTAB. Absent: accessory muscle use, rales, rhonchi, wheezes - Cardiovascular Cardiovascular exam: Present: RRR, +S1, +S2. Absent: diastolic murmur, gallop, rubs, systolic murmur - GI/Abdominal GI/Abdominal exam: Present: normal bowel sounds, soft, no peritoneal signs. Absent: distended, tenderness - Extremities Exam Extremities exam: Present: warm, radial pulses palpable and symetrical. Absent : calf tenderness, cyanotic, pedal edema Additional comments: Right upper extremity AV fistula - Neurological Exam Neurological exam: Present: CN II-XII intact, oriented X3, no focal deficits. Absent: pronater drift, facial droop, speech deficit - Skin Skin exam: Present: dry, intact
[2016-12-07] MEDS ORDERED: 0.9 % Sodium Chloride 2,000 ML ONE (09:10)
[2016-12-07] MEDS ORDERED: *HR* Heparin 5,000 UNIT/ML VIAL ONE (09:10)
--- NOTE | 2016-12-07 09:24 | Physician Discharge Referral ---
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 (7) Generalized pain Status: Acute - Transfer Medications Prescriptions: OxyCODONE/APAP 5/325 [Percocet 5/325 MG] 1 each PO Q8HR PRN #25 tablet PRN Reason: Pain Amoxicillin [Amoxil] 250 mg PO BID 3 Days Losartan [Cozaar] 50 mg PO QAM #30 tablet PredniSONE 20 mg PO DAILY #30 tablet Home Medications: Aspirin Enteric Coated [Aspirin EC] 81 mg PO QAM 09/21/15 [History] Atorvastatin [Lipitor] 10 mg PO QAM 09/21/15 [History] Calcium Acetate [Phos-LO] 1,334 mg PO TIDWM 09/21/15 [History] Citalopram [CeleXA] 10 mg PO QAM 09/21/15 [History] Finasteride [Proscar] 5 mg PO QAM 09/21/15 [History] Insulin Aspart Prot/Insuln Asp [Novolog Mix 70-30 Flexpen Syrn] 3 - 10 unit SQ TID MDD per sliding scale 09/21/15 [History] Multivitamin/Iron/Folic Acid [Centrum Complete Multivit Tab] 1 tab PO QAM [History] Nitroglycerin 0.4 mg SL AD PRN 09/21/15 [History] Clopidogrel Bisulfate [Plavix] 75 mg PO DAILY 30 Days 07/17/16 [Rx] Carvedilol 3.125 mg PO BID 09/21/16 [History] Docusate Sodium [Dok] 100 mg PO BID 09/21/16 [History] Loratadine [Claritin] 10 mg PO DAILY 09/21/16 [History] Omeprazole [PriLOSEC] 20 mg PO DAILY 09/21/16 [History] Insulin Glargine,Hum.rec.anlog [Lantus Solostar] 4 unit SQ QAM AND QHS 10/21/16 [History] Ipratropium/Albuterol Neb [Duoneb] 3 ml IH Q6HR 12/21/16 [History] Isosorbide MONOnitrate (24 HR) [Imdur] 30 mg PO DAILY #20 tab.er.24h 10/21/16 [ Rx] CloNIDine HCl 0.1 mg PO TID PRN 12/04/16 [History] Amoxicillin [Amoxil] 250 mg PO BID 3 Days 12/07/16 [Rx] Losartan [Cozaar] 50 mg PO QAM #30 tablet 12/07/16 [Rx] OxyCODONE/APAP 5/325 [Percocet 5/325 MG] 1 each PO Q8HR PRN #25 tablet 12/07/16 [Rx] PredniSONE 20 mg PO DAILY #30 tablet 12/07/16 [Rx] Allergies/Adverse Reactions: Allergies No Known Allergies Allergy (Verified 07/12/16 09:25) - Respiratory Orders Smoking Cessation: Smoking cessation has been advised. For more information, call the [employer] Quit Line at 8-741-ZENT-NOW. - Advance Directives Code Status: Full Code - Treatments List/Other: Follow with primary care physician within the next 7 days. Continue dialysis. Continue 3 more days of amoxicillin. Taper down prednisone very slowly from 20 mg daily, decrease by 2.5 mg every 2-4 weeks until symptoms are better controlled. Consider doing an MRI of the cervical spine is an outpatient and to follow with orthopedic surgery if needed. - Diet Orders Renal CERTIFICATION: I certify that the transfer of the above named patient to an Extended Care Facility is necessary for the continuing treatment of the diagnosis listed. The above information is true and accurate reflection of patient's current condition. Confidential - Redisclosure prohibited without a patient's written consent.
--- NOTE | 2016-12-07 10:41 | Nephrology Progress Note ---
Date of Encounter: 12/07/16 Time of Encounter: 10:25 - Assessment and Plan (1) ESRD (end stage renal disease) Current Visit: Yes Status: Chronic HD today for clearance and volume mgt Goal DW is near 60kg, yenifer plan for a safer 5kg today with HD He was seen/examined while on HD. Qb and Qd, BPs and access pressures were acceptable and noted. (2) LRTI (lower respiratory tract infection) Current Visit: Yes Status: Acute As per primary. I suspect that this is primarily affecting his dyspnea. (3) UTI (urinary tract infection) Current Visit: Yes Status: Acute As per primary. Qualifiers: Urinary tract infection type: acute cystitis Hematuria presence: without hematuria Qualified Code(s): N30.00 - Acute cystitis without hematuria (4) Elevated troponin Current Visit: No Status: Acute As per primary. Subjective Principal diagnosis: UTI, respiratory infection Interval history: pt was s/e while on HD. He reported having an ongoing cough with sputum production. He did not affirm N/V/D or chest pain. Objective - Vital Signs Vital signs: Vital Signs Temp Pulse Resp BP Pulse Ox 12/07/16 07:03 97.7 F 90 16 174/87 98 12/07/16 04:52 98.1 F 80 18 132/67 97 12/07/16 04:32 18 98 12/07/16 00:42 98.2 F 88 18 104/60 98 12/06/16 19:21 98.3 F 79 16 126/67 95 12/06/16 15:29 18 94 L 12/06/16 15:25 97.5 F L 72 18 83/46 94 L 12/06/16 11:05 16 95 12/06/16 10:50 97.6 F 76 18 94/54 98 Intake and Output 12/06/16 12/07/16 12/07/16 23:59 07:59 15:59 Intake Total 470 / 470 0 / 0 Output Total 0 / 0 0 / 0 Balance 470 / 470 0 / 0 Intake: Oral 470 / 470 0 / 0 Output: Urine 0 / 0 0 / 0 Other: Meal Dinner Percent of Meal Consumed 50% Weight 66.3 kg Blood Glucose* 226 447 Patient Weight 12/07/16 23:59 Weight 66.3 kg - General Appearance General appearance: Present: well-developed, fatigue, frail EENT: Present: ATNC, mucous membranes moist Neck: Present: supple Respiratory: Present: course breath sounds, rhonchi Cardiology: Present: no edema, regular rate, regular rhythm Dialysis Vascular Access: Arteriovenous Fistula thrill: Yes Gastrointestinal: Present: normoactive bowel sounds, no tenderness, no guarding Integumentary: Present: no rash, warm and dry Neurologic: Present: no focal deficit, no asterixis, alert and oriented x3 Musculoskeletal: Present: no deformities, no erythema, no cyanosis Psychiatric: Present: mood/affect appropriate, cooperative - Lab 12/06/16 06:26 12/07/16 04:43 Most recent lab results Calcium 8.8 mg/dL (8.6-10.8) 12/07/16 04:43 Magnesium 1.5 mg/dL (1.6-2.6) L 12/05/16 00:50 Consult Discharge Plan - Plan Additional Instructions: Follow with primary care physician within the next 7 days. Continue dialysis. Continue 3 more days of amoxicillin. Taper down prednisone very slowly from 20 mg daily, decrease by 2.5 mg every 2-4 weeks until symptoms are better controlled. Consider doing an MRI of the cervical spine is an outpatient and to follow with orthopedic surgery if needed. Referrals: Dao Klein MD [Primary Care Provider] - 12/14/16 2:20 pm (Please follow up as schedule....) Prescriptions: OxyCODONE/APAP 5/325 [Percocet 5/325 MG] 1 each PO Q8HR PRN #25 tablet PRN Reason: Pain Amoxicillin [Amoxil] 250 mg PO BID 3 Days Losartan [Cozaar] 50 mg PO QAM #30 tablet PredniSONE 20 mg PO DAILY #30 tablet
[2016-12-07 11:00] LABS: Hepatitis B Surface Antigen Nonreactive (Nonreactive)
[2016-12-07 11:03] LABS: Hepatitis B Surface Antibody 104.16 mIU/mL
--- NOTE | 2016-12-07 13:11 | Electrocardiograph Report ---
[place] [address] Test Date: 2016-12-04 Pat Name: Jalil Dawson Department: 104 Room: 2A13 Gender: M Real Estate Developer: : [id number] Requested By: Axel Nieves Order Number: [id number] Reading MD: Ray Sanchez Measurements Intervals [place] Rate: 82 P: 42 VA: 186 QRS: 76 QRSD: 113 T: 48 QT: 392 QTc: 431 Interpretive Statements SINUS RHYTHM SEPTAL MYOCARDIAL INFARCTION, POSSIBLY ACUTE LEFT VENTRICULAR HYPERTROPHY WITH QRS WIDENING Electronically Signed On 12-07-2016 13:09:53 EST by Ray Sanchez
[2016-12-07] MEDS: Isosorbide MONOnitrate (24 HR) 30 MG TAB.ER.24H PO SCH (13:55)
[2016-12-07] MEDS: cloNIDine HCl 0.1 MG TABLET PO SCH ×3 (13:55→21:11)
[2016-12-07] MEDS: Amoxicillin 250 MG CHEWABLE TABLET PO SCH ×2 (13:56→21:17)
[2016-12-08] MEDS: Ipratropium/Albuterol Neb 3 ML IH SCH ×3 (03:43→16:08)
[2016-12-08 04:56] LABS: Calcium 9.4 mg/dL (8.6-10.8)
[2016-12-08 05:01] LABS: Potassium 5.3 mEq/L (3.5-4.5)
[2016-12-08] MEDS: *HR* Heparin 5,000 UNIT/ML VIAL SQ SCH (07:09)
[2016-12-08] MEDS: Insulin LISPRO 300 UNITS/3 ML VIAL SQ SCH ×3 (07:43→16:28)
[2016-12-08] MEDS: Aspirin Enteric Coated 81 MG Tablet PO SCH (08:18)
[2016-12-08] MEDS: Calcium Acetate 667 MG CAPSULE PO SCH ×3 (08:18→16:24)
[2016-12-08] MEDS: Loratadine 10 MG TABLET PO SCH (08:18)
[2016-12-08] MEDS: Isosorbide MONOnitrate (24 HR) 30 MG TAB.ER.24H PO SCH (08:19)
[2016-12-08] MEDS: predniSONE 20 MG TABLET PO SCH (08:19)
[2016-12-08] MEDS: cloNIDine HCl 0.1 MG TABLET PO SCH ×2 (08:19→16:24)
[2016-12-08] MEDS: Multivit/Ca/Min/Fe/FA 1 TAB TABLET PO SCH (08:19)
[2016-12-08] MEDS: Insulin DETEMIR 100 UNIT/ML X5UNITS SQ SCH (08:19)
[2016-12-08] MEDS: Amoxicillin 250 MG CHEWABLE TABLET PO SCH (08:19)
[2016-12-08] MEDS: Finasteride 5 MG TABLET PO SCH (08:19)
--- NOTE | 2016-12-08 08:46 | Nephrology Progress Note ---
Date of Encounter: 12/08/16 Time of Encounter: 08:44 - Assessment and Plan (1) ESRD (end stage renal disease) Current Visit: Yes Status: Chronic Plan for HD tomorrow Continue renal diet and fluid restriction Avoid nephrotoxins if possible. (2) Acute bronchitis Current Visit: No Status: Acute per primary team Qualifiers: Bronchitis organism: unspecified organism Qualified Code(s): J20.9 - Acute bronchitis, unspecified (3) Generalized weakness Current Visit: No Status: Acute Patient states he has had progressive weakness over last several weeks; wants to get set up for physical therapy. per primary team Subjective Principal diagnosis: UTI, respiratory infection Interval history: Patient seen and examined. Sitting up in bed eating breakfast, smiling and talkative. Objective - Vital Signs Vital signs: Vital Signs Temp Pulse Resp BP Pulse Ox 12/08/16 08:27 18 94 L 12/08/16 07:37 97.9 F 88 16 125/84 100 12/08/16 03:45 16 94 L 12/08/16 02:58 97.8 F 84 16 119/64 97 12/07/16 23:26 98.0 F 80 16 100/62 93 L 12/07/16 21:38 16 98 12/07/16 21:37 98 12/07/16 19:11 97.9 F 82 18 94/52 94 L 12/07/16 16:29 97.8 F 87 18 92/52 99 12/07/16 15:46 20 98 12/07/16 13:00 97.5 F L 20 113/60 12/07/16 12:45 97/56 12/07/16 12:30 100/66 12/07/16 12:15 102/75 12/07/16 12:00 101/62 12/07/16 11:45 102/59 12/07/16 11:30 105/65 12/07/16 11:15 106/56 12/07/16 11:00 98/57 12/07/16 10:45 109/61 12/07/16 10:30 92/62 12/07/16 10:15 123/67 12/07/16 10:00 133/65 12/07/16 09:45 130/71 12/07/16 09:30 97 F L 20 100/58 Intake and Output 02/04/1712/08/16 12/08/16 23:59 07:59 15:59 Intake Total 200 / 200 50 / 50 Balance 200 / 200 50 / 50 Intake: Oral 200 / 200 50 / 50 Other: Weight 60.8 kg Blood Glucose* 324 84 Patient Weight 12/08/16 23:59 Weight 60.8 kg - General Appearance General appearance: Present: well-developed, well-nourished EENT: Present: ATNC, hearing intact, vision intact Neck: Present: supple Respiratory: Present: clear Cardiology: Present: normal S1, normal S2 Dialysis Vascular Access: Arteriovenous Fistula Gastrointestinal: Present: no guarding Integumentary: Present: warm and dry Neurologic: Present: alert and oriented x3 Psychiatric: Present: mood/affect appropriate, cooperative - Lab 12/06/16 06:26 12/08/16 04:15 Most recent lab results Calcium 9.4 mg/dL (8.6-10.8) 12/08/16 04:15 Magnesium 1.5 mg/dL (1.6-2.6) L 12/05/16 00:50 Consult Discharge Plan - Plan Additional Instructions: Follow with primary care physician within the next 7 days. Continue dialysis. Continue 3 more days of amoxicillin. Taper down prednisone very slowly from 20 mg daily, decrease by 2.5 mg every 2-4 weeks until symptoms are better controlled. Consider doing an MRI of the cervical spine is an outpatient and to follow with orthopedic surgery if needed. Referrals: Dao Klein MD [Primary Care Provider] - 12/14/16 2:20 pm (Please follow up as schedule....) Prescriptions: OxyCODONE/APAP 5/325 [Percocet 5/325 MG] 1 each PO Q8HR PRN #25 tablet PRN Reason: Pain Amoxicillin [Amoxil] 250 mg PO BID 3 Days Losartan [Cozaar] 50 mg PO QAM #30 tablet PredniSONE 20 mg PO DAILY #30 tablet
[2016-12-08 11:58] VITALS: BP 127/72
[2016-12-08] MEDS ORDERED: *HR* OxyCODONE/APAP 5/325 TABLET PO PRN (12:37)
== END 2016-12-08 17:51 ==
LOC: EMEROO 16:27 → 2ANU 16:27 → SUATTDRO 20:57 → 2ANU 21:51
PROVIDERS: ADMIT Internal Medicine; ATTEND Internal Medicine Endocrinology, Diabetes & Metabolism

== ENCOUNTER 2016-12-15 08:12 | Observation (INO) ==
[2016-12-15] MEDS ORDERED: 0.9 % Sodium Chloride 1,000 ML IVC ONE (08:36)
--- NOTE | 2016-12-15 08:41 | Emergency Department Note ---
Disposition Clinical Impression: UTI (urinary tract infection) Qualifiers: Urinary tract infection type: site unspecified Hematuria presence: with hematuria Qualified Code(s): N39.0 - Urinary tract infection, site not specified ; R31.9 - Hematuria, unspecified Altered mental status Qualifiers: Altered mental status type: delirium Qualified Code(s): R41.0 - Disorientation , unspecified Disposition: Admitted As Inpatient Condition: Fair Referrals: Tristen Olivier [Primary Care Provider] - Forms: ED Satisfaction Letter Time of Disposition: 11:08 Altered Mental Status HPI - General Chief Complaint: ED General Medical Stated Complaint: low blood sugar Time Seen by Provider: 12/15/16 08:33 Source: EMS Mode of arrival: EMS Limitations: altered mental status Nursing Notes Reviewed: Yes Vital Signs Reviewed: Yes - History of Present Illness MD complaint: altered mental status, confusion Onset (ago): Just [employer] Pain Severity: none Context: other (Patient sent from intermediate. They reportedly did an Accu- Chek on him there which was read as 55. They gave him glucagon. They called the squad and transported the patient. Squad reports that the sugar was fine when they checked it. They said his blood pressure and heart rate were good.) Associated symptoms: Reports: other (Patient complains of feeling cold. He denied pain. Otherwise that is all we could really get from him.) Treatments prior to arrival: other (Glucagon) - Related Data Home Medications Medication Instructions Recorded Confirmed Aspirin Enteric Coated [Aspirin EC] 81 mg PO QAM 09/21/15 12/15/16 Atorvastatin [Lipitor] 10 mg PO QAM 09/21/15 12/15/16 Calcium Acetate [Phos-LO] 1,334 mg PO TIDWM 09/21/15 12/15/16 Citalopram [CeleXA] 10 mg PO QAM 09/21/15 12/15/16 Finasteride [Proscar] 5 mg PO QAM 09/21/15 12/15/16 Insulin Aspart Prot/Insuln Asp 10 unit SQ BID MDD per sliding 09/21/15 12/15/16 [Novolog Mix 70-30 Flexpen Syrn] scale Multivitamin/Iron/Folic Acid 1 tab PO QAM 09/21/15 12/15/16 [Centrum Complete Multivit Tab] Nitroglycerin 0.4 mg SL AD PRN 09/21/15 12/15/16 Carvedilol 3.125 mg PO BID 09/21/16 12/15/16 Docusate Sodium [Dok] 100 mg PO BID 09/21/16 12/15/16 Loratadine [Claritin] 10 mg PO DAILY 09/21/16 12/15/16 Insulin Glargine,Hum.rec.anlog 15 unit SQ QAM AND QHS 10/21/16 12/15/16 [Lantus Solostar] Ipratropium/Albuterol Neb [Duoneb] 3 ml IH Q6HR 10/21/16 12/15/16 CloNIDine HCl 0.1 mg PO TID PRN 12/04/16 12/15/16 Lidocaine/Prilocaine [Emla] 1 appl TP MOWEFR 12/15/16 12/15/16 Previous Rx's Medication Instructions Recorded Clopidogrel Bisulfate [Plavix] 75 mg PO DAILY 30 Days 07/17/16 Isosorbide MONOnitrate (24 HR) 30 mg PO DAILY #20 tab.er.24h 10/21/16 [Imdur] Amoxicillin [Amoxil] 250 mg PO BID 3 Days 12/07/16 Losartan [Cozaar] 50 mg PO QAM #30 tablet 12/07/16 OxyCODONE/APAP 5/325 [Percocet 1 each PO Q8HR PRN #25 tablet 12/07/16 5/325 MG] Allergies Allergy/AdvReac Type Severity Reaction Status Date / Time No Known Allergies Allergy Verified 12/15/16 08:24 Limitations: ROS unobtainable due to patients medical condition Constitutional: Reports: chills Past Medical History - Past Medical History Source: old records reviewed, nursing notes reviewed Medical history: Reports: CHF, coronary artery disease, DVT, diabetes, dialysis , hyperlipidemia, hypertension, renal disease, other Surgical history: Reports: herniorrhaphy Psychiatric history: Reports: no psych history - Social History Smoking Status: Never smoker Smokeless Tobacco Status: No Alcohol use: Reports: none Drug use: Reports: none Physical Exam - General Limitations: altered mental status General appearance: in no apparent distress, other (Patient seems confused. Not really able to answer my questions. He just keeps repeating that he sorry and that he is cold.) - Head Head exam: atraumatic, normocephalic - Eye Eye exam: Present: normal appearance, PERRL - ENT ENT exam: normal exam, normal oropharynx, mucous membranes moist - Neck Neck exam: Present: normal inspection, full ROM - Chest Chest inspection: Present: normal inspection, symmetric chest wall rise. Absent : tenderness - Respiratory Respiratory exam: Present: normal lung sounds bilaterally. Absent: respiratory distress, wheezes - Cardiovascular Cardiovascular exam: Present: regular rate, normal rhythm, normal heart sounds - Abdominal Exam Abdominal exam: Present: soft, Non-Tender - Extremities Exam Extremities exam: Present: normal inspection. Absent: pedal edema - Neurological Exam Neurological exam: Present: alert. Absent: motor sensory deficit - Skin Skin exam: Present: warm, dry. Absent: rash Course Course Narrative: She presents with altered mental status. prison checked his sugar and it was 55, which is pretty low for this patient. That could be the cause of his altered mental status, however his sugar is up in the 110 range now and he still seems confused and the response he gives to questions is that he is sorry and that he is cold. I went ahead and did a infectious-type workup on the patient as well as an altered mental status workup. Will monitor the patient for any improvements in his mental status. Disposition will be based on diagnostic results and reevaluation. - Reevaluation(s) Reevaluation #1: Patient's confusion continues despite his sugar being normal. I do not a sugar has anything to do with his altered mental status. His urinalysis comes back positive for white cells and bacteria despite being a catheter urine specimen. Chest x-ray also shows a questionable infiltrate. On the start this patient on Rocephin and Zithromax which will cover urine and lung. I think this is an infectious issue. The troponin was elevated at 0.09, however this is one of the best troponins at this patient is ever had and it was significantly more elevated just 10 days ago. I doubt this represents new ischemia. I will arrange to get the patient admitted to the hospital. Time: 09:46 Reevaluation #2: I discussed the case with the hospitalist, Dr. Arevalo. She agrees with the plan and has accepted the patient for admission. Time: 11:06 - Consultations Consultation #1: Dr. Arevalo, hospitalist, has accepted the patient for admission. Time: 11:06 Vital Signs Temperature 98.2 F 12/15/16 08:18 Pulse Rate 84 12/15/16 08:18 Respiratory Rate 16 12/15/16 08:18 Blood Pressure 167/92 12/15/16 08:18 O2 Sat by Pulse Oximetry 95 12/15/16 08:18 Temperature 98.2 F 12/15/16 08:18 Pulse Rate 88 12/15/16 10:28 Respiratory Rate 16 12/15/16 10:28 Blood Pressure 148/94 12/15/16 10:28 O2 Sat by Pulse Oximetry 98 12/15/16 10:28 Oxygen Delivery Oxygen Delivery Room Air Altered Mental Status - Medical Records Medical records reviewed: Yes I reviewed the patient's medical records. - Lab Data Lab results reviewed: Yes I reviewed the patient's lab results. Result diagrams: 12/15/16 09:08 12/15/16 09:08 Lab Results 12/15/16 12/15/16 12/15/16 Range/Units 08:27 09:01 09:08 WBC 13.3 H D (4.3-11.1) K/mcL RBC 3.79 L (4.19-5.50) M/mcL Hgb 11.9 L (12.9-16.9) g/dL Hct 36.5 L (37.5-50.1) % MCV 96.3 (83.0-100.0) fL MCH 31.4 (28.0-33.3) pg MCHC 32.6 (31.6-35.5) g/dL RDW 13.2 (11.5-14.5) % Plt Count 214 (140-400) K/mcL MPV 11.1 (9.4-12.4) fL Immature Gran % 0.4 (0-4) % Seg Neutrophils % 84.7 % Lymphocytes % 5.8 % Monocytes % 8.4 % Eosinophils % 0.4 % Basophils % 0.3 % Neutrophils # 11.3 H (1.6-8.9) K/mcL Lymphocytes # 0.8 (0.6-4.6) K/mcL Monocytes # 1.1 (0.0-1.3) K/mcL Eosinophils # 0.1 (0.0-0.6) K/mcL Basophils # 0.0 (0.0-0.2) K/mcL PT (9.4-12.1) Seconds INR APTT (26.0-36.0) Seconds ABG pH (7.32-7.45) pH Units ABG pCO2 (35-45) mmHg ABG pO2 (85-104) mmHg ABG HCO3 (21-27) mEQ/L ABG Total CO2 (20-26) mEq/L ABG O2 Saturation (95-98) % ABG Base Excess (-2.0 to 3.0) mEq/L Blood Gas Modality Inspired O2 % Sodium (136-145) mEq/L Potassium (3.5-4.5) mEq/L Chloride (98-109) mEq/L Carbon Dioxide (19-29) mEq/L BUN (8-26) mg/dL Creatinine (0.72-1.25) mg/dL Est GFR ( Amer) (> 60) Est GFR (Non-Af Amer) (> 60) BUN/Creatinine Ratio (6-26) Glucose (70-99) mg/dL POC Glucose 112 H (58-89) Calculated Osmolality (280-300) Lactic Acid (0.5-2.2) mmol/L Calcium (8.6-10.8) mg/dL Phosphorus (2.3-4.7) mg/dL Magnesium (1.6-2.6) mg/dL Total Bilirubin (0.2-1.2) mg/dL Direct Bilirubin (0.0-0.5) mg/dL Indirect Bilirubin (0.0-1.2) mg/dL AST (5-34) Units/L ALT (0-55) Units/L Alkaline Phosphatase (38-126) Units/L Troponin I (0-0.03) ng/mL Serum Total Protein (6.0-8.3) g/dL Albumin (3.5-5.0) g/dL Globulin (2.4-3.5) g/dL Albumin/Globulin Ratio (1.1-2.2) Urine Color Dark Yellow (Yellow) Urine Clarity Cloudy A (Clear) Urine pH 5.5 (5.0-8.0) pH Units Ur Specific [place] 1.019 (1.010-1.025) Urine Protein 100 H (Neg-Trace) mg/dL Urine Glucose (UA) 500 H (Normal) mg/dL Urine Ketones Trace H (Negative) mg/dL Urine Blood Large H (Negative) Urine Nitrite Negative (Negative) Urine Bilirubin Small H (Negative) Urine Urobilinogen Normal (Normal) mg/dL Ur Leukocyte Esterase Moderate H (Negative) Urine Microscopic RBC 50-100 H (0-3) per hpf Urine Microscopic WBC 15-30 H (0-3) per hpf Ur Squamous Epith Cells Few (None-Few) per lpf Amorphous Sediment Moderate H (Few) Urine Bacteria Moderate H (None-Few) per hpf Hyaline Casts None Seen (None-Few) per lpf Urine Yeast Test Not Performed Ur Culture Indicated? YES A (NO) 12/15/16 12/15/16 12/15/16 Range/Units 09:08 09:08 09:08 WBC (4.3-11.1) K/mcL RBC (4.19-5.50) M/mcL Hgb (12.9-16.9) g/dL Hct (37.5-50.1) % MCV (83.0-100.0) fL MCH (28.0-33.3) pg MCHC (31.6-35.5) g/dL RDW (11.5-14.5) % Plt Count (140-400) K/mcL MPV (9.4-12.4) fL Immature Gran % (0-4) % Seg Neutrophils % % Lymphocytes % % Monocytes % % Eosinophils % % Basophils % % Neutrophils # (1.6-8.9) K/mcL Lymphocytes # (0.6-4.6) K/mcL Monocytes # (0.0-1.3) K/mcL Eosinophils # (0.0-0.6) K/mcL Basophils # (0.0-0.2) K/mcL PT 10.9 (9.4-12.1) Seconds INR 1.0 APTT 34.5 (26.0-36.0) Seconds ABG pH (7.32-7.45) pH Units ABG pCO2 (35-45) mmHg ABG pO2 (85-104) mmHg ABG HCO3 (21-27) mEQ/L ABG Total CO2 (20-26) mEq/L ABG O2 Saturation (95-98) % ABG Base Excess (-2.0 to 3.0) mEq/L Blood Gas Modality Inspired O2 % Sodium 136 (136-145) mEq/L Potassium 4.6 H (3.5-4.5) mEq/L Chloride 102 (98-109) mEq/L Carbon Dioxide 23 (19-29) mEq/L BUN 27 H (8-26) mg/dL Creatinine 3.77 H (0.72-1.25) mg/dL Est GFR ( Amer) 18 L (> 60) Est GFR (Non-Af Amer) 15 L (> 60) BUN/Creatinine Ratio 7 (6-26) Glucose 134 H (70-99) mg/dL POC Glucose (58-89) Calculated Osmolality 289 (280-300) Lactic Acid 1.4 (0.5-2.2) mmol/L Calcium 9.0 (8.6-10.8) mg/dL Phosphorus 4.4 (2.3-4.7) mg/dL Magnesium 1.7 (1.6-2.6) mg/dL Total Bilirubin 0.4 (0.2-1.2) mg/dL Direct Bilirubin 0.2 (0.0-0.5) mg/dL Indirect Bilirubin 0.2 (0.0-1.2) mg/dL AST 18 (5-34) Units/L ALT 9 (0-55) Units/L Alkaline Phosphatase 103 (38-126) Units/L Troponin I (0-0.03) ng/mL Serum Total Protein 7.1 (6.0-8.3) g/dL Albumin 2.9 L (3.5-5.0) g/dL Globulin 4.2 H (2.4-3.5) g/dL Albumin/Globulin Ratio 0.7 L (1.1-2.2) Urine Color (Yellow) Urine Clarity (Clear) Urine pH (5.0-8.0) pH Units Ur Specific [place] (1.010-1.025) Urine Protein (Neg-Trace) mg/dL Urine Glucose (UA) (Normal) mg/dL Urine Ketones (Negative) mg/dL Urine Blood (Negative) Urine Nitrite (Negative) Urine Bilirubin (Negative) Urine Urobilinogen (Normal) mg/dL Ur Leukocyte Esterase (Negative) Urine Microscopic RBC (0-3) per hpf Urine Microscopic WBC (0-3) per hpf Ur Squamous Epith Cells (None-Few) per lpf Amorphous Sediment (Few) Urine Bacteria (None-Few) per hpf Hyaline Casts (None-Few) per lpf Urine Yeast Ur Culture Indicated? (NO) 12/15/16 12/15/16 Range/Units 09:08 10:45 WBC (4.3-11.1) K/mcL RBC (4.19-5.50) M/mcL Hgb (12.9-16.9) g/dL Hct (37.5-50.1) % MCV (83.0-100.0) fL MCH (28.0-33.3) pg MCHC (31.6-35.5) g/dL RDW (11.5-14.5) % Plt Count (140-400) K/mcL MPV (9.4-12.4) fL Immature Gran % (0-4) % Seg Neutrophils % % Lymphocytes % % Monocytes % % Eosinophils % % Basophils % % Neutrophils # (1.6-8.9) K/mcL Lymphocytes # (0.6-4.6) K/mcL Monocytes # (0.0-1.3) K/mcL Eosinophils # (0.0-0.6) K/mcL Basophils # (0.0-0.2) K/mcL PT (9.4-12.1) Seconds INR APTT (26.0-36.0) Seconds ABG pH 7.51 H (7.32-7.45) pH Units ABG pCO2 35 (35-45) mmHg ABG pO2 66 L (85-104) mmHg ABG HCO3 27.9 H (21-27) mEQ/L ABG Total CO2 29.0 H (20-26) mEq/L ABG O2 Saturation 95 (95-98) % ABG Base Excess 4.8 H (-2.0 to 3.0) mEq/L Blood Gas Modality RA Inspired O2 21 % Sodium (136-145) mEq/L Potassium (3.5-4.5) mEq/L Chloride (98-109) mEq/L Carbon Dioxide (19-29) mEq/L BUN (8-26) mg/dL Creatinine (0.72-1.25) mg/dL Est GFR ( Amer) (> 60) Est GFR (Non-Af Amer) (> 60) BUN/Creatinine Ratio (6-26) Glucose (70-99) mg/dL POC Glucose (58-89) Calculated Osmolality (280-300) Lactic Acid (0.5-2.2) mmol/L Calcium (8.6-10.8) mg/dL Phosphorus (2.3-4.7) mg/dL Magnesium (1.6-2.6) mg/dL Total Bilirubin (0.2-1.2) mg/dL Direct Bilirubin (0.0-0.5) mg/dL Indirect Bilirubin (0.0-1.2) mg/dL AST (5-34) Units/L ALT (0-55) Units/L Alkaline Phosphatase (38-126) Units/L Troponin I 0.09 H* (0-0.03) ng/mL Serum Total Protein (6.0-8.3) g/dL Albumin (3.5-5.0) g/dL Globulin (2.4-3.5) g/dL Albumin/Globulin Ratio (1.1-2.2) Urine Color (Yellow) Urine Clarity (Clear) Urine pH (5.0-8.0) pH Units Ur Specific [place] (1.010-1.025) Urine Protein (Neg-Trace) mg/dL Urine Glucose (UA) (Normal) mg/dL Urine Ketones (Negative) mg/dL Urine Blood (Negative) Urine Nitrite (Negative) Urine Bilirubin (Negative) Urine Urobilinogen (Normal) mg/dL Ur Leukocyte Esterase (Negative) Urine Microscopic RBC (0-3) per hpf Urine Microscopic WBC (0-3) per hpf Ur Squamous Epith Cells (None-Few) per lpf Amorphous Sediment (Few) Urine Bacteria (None-Few) per hpf Hyaline Casts (None-Few) per lpf Urine Yeast Ur Culture Indicated? (NO) - Radiology Data Radiology results reviewed: Yes I reviewed the patient's radiology results. - EKG Data EKG attestation: Yes I reviewed and interpreted this EKG. EKG shows normal: sinus rhythm, axis, intervals, QRS complexes, ST-T waves Rate: normal Rhythm: PVC's Interpretation: no acute changes, unchanged when compared to prior tracing (date ) (12/04/2016) TPA Checklist - LKW: 3-4.5 hrs Add. Contraindications Patient/family understanding: The patient/family members have been counseled and understood the risk, benefit , and alternatives of treatment.
[2016-12-15 09:10] LABS: Bilirubin,Urine Small (Negative); Blood,Urine Large (Negative); Clarity,Urine Cloudy (Clear); Color,Urine Dark Yellow (Yellow); Glucose,Urine (UA) 500 mg/dL (Normal); Ketones,Urine Trace mg/dL (Negative); Leukocyte Esterase,Urine Moderate (Negative); Nitrite,Urine Negative (Negative); PH,Urine 5.5 pH Units (5.0-8.0); Protein,Urine 100 mg/dL (Neg-Trace); Specific Gravity,Urine 1.019 (1.010-1.025); Urobilinogen,Urine Normal (Normal)
[2016-12-15 09:12] LABS: Hyaline Casts,Urine None Seen per lpf (None-Few); RBC,Urine 50-100 per hpf (0-3); Squamous Epithelial Cell,Urine Few per lpf (None-Few); WBC,Urine 15-30 per hpf (0-3)
[2016-12-15 09:19] LABS: Basophils % 0.3 %; Eosinophils # 0.1 K/mcL (0.0-0.6); Eosinophils % 0.4 %; Hematocrit 36.5 % (37.5-50.1); Hemoglobin 11.9 g/dL (12.9-16.9); Immature Granulocytes % 0.4 % (0-4); Lymphocytes # 0.8 K/mcL (0.6-4.6); Lymphocytes % 5.8 %; Mean Corpuscular HGB Conc 32.6 g/dL (31.6-35.5); Mean Corpuscular Hemoglobin 31.4 pg (28.0-33.3); Mean Corpuscular Volume 96.3 fL (83.0-100.0); Mean Platelet Volume 11.1 fL (9.4-12.4); Monocytes # 1.1 K/mcL (0.0-1.3); Monocytes % 8.4 %; Neutrophils # 11.3 K/mcL (1.6-8.9); Platelet Count 214 K/mcL (140-400); Red Blood Count 3.79 M/mcL (4.19-5.50); Red Cell Distribution Width 13.2 % (11.5-14.5); Segmented Neutrophils % 84.7 %
[2016-12-15 09:24] LABS: Amorphous Sediment,Urine Moderate (Few); Bacteria,Urine Moderate per hpf (None-Few)
[2016-12-15 09:29] LABS: Prothrombin Time 10.9 Seconds (9.4-12.1)
[2016-12-15 09:31] LABS: Activated Partial Thrombo Time 34.5 Seconds (26.0-36.0)
[2016-12-15 09:33] LABS: Albumin 2.9 g/dL (3.5-5.0); Albumin/Globulin Ratio 0.7 (1.1-2.2); Bilirubin,Direct 0.2 mg/dL (0.0-0.5); Bilirubin,Indirect 0.2 mg/dL (0.0-1.2); Bilirubin,Total 0.4 mg/dL (0.2-1.2); Globulin 4.2 g/dL (2.4-3.5); Phosphorous 4.4 mg/dL (2.3-4.7); Potassium 4.6 mEq/L (3.5-4.5); Total Protein 7.1 g/dL (6.0-8.3)
[2016-12-15 09:42] LABS: Magnesium 1.7 mg/dL (1.6-2.6)
[2016-12-15] MEDS ORDERED: Azithromycin 500 MG in D5% in Water 250 ML IVPB ONE (09:44)
[2016-12-15 10:56] LABS: ABG Base Excess 4.8 mEq/L (-2.0 to 3.0); ABG HCO3 27.9 mEQ/L (21-27); ABG Oxygen Saturation 95 % (95-98); ABG PCO2 35 mmHg (35-45); ABG PH 7.51 pH Units (7.32-7.45); ABG PO2 66 mmHg (85-104); Blood Gas FiO2 21 %
[2016-12-15] MEDS ORDERED: cloNIDine HCl 0.1 MG TABLET PO PRN (13:45)
--- NOTE | 2016-12-15 13:53 | Internal Med History&Physical ---
Date of Encounter: 12/15/16 Time of Encounter: 13:49 Assessment and Plan (1) HCAP (healthcare-associated pneumonia) Current visit: Yes Status: Acute Patient will be started on vancomycin and Zosyn. Sputum cultures (2) Hypoglycemia Current visit: Yes Status: Acute Due to underlying infection. Will continue checking sugars every 3 hours. hold long-acting insulin (3) Toxic metabolic encephalopathy Current visit: Yes Status: Acute Due to underlying infection and hypoglycemia. (4) UTI (urinary tract infection) Current visit: Yes Status: Acute Await cultures. He is on vancomycin and Zosyn Qualifiers: Urinary tract infection type: site unspecified Hematuria presence: with hematuria Qualified Code(s): N39.0 - Urinary tract infection, site not specified; R31.9 - Hematuria, unspecified (5) ESRD (end stage renal disease) Current visit: Yes Status: Acute Nephrology will see patient for the Dialysis in-hospital Wednesday and Wednesday Internal Medicine - H&P: HPI Chief complaint: ams History of present illness: Mr. Dawson is a 89 year old male with multiple medical problems including end- stage renal disease on hemodialysis Wednesday, recently discharged from the hospital after a UTI and acute bronchitis presents to the emergency room today after he was found to be hypoglycemic in the shelter. Son and daughter are at bedside and assisting in providing history. [facility] and daughter last spoke with him yesterday and he was in his usual level of alertness. Today patient was noted to be lethargic and confused. His blood sugar was 55 in the shelter glucagon was given. Patient has been having cough with sputum production. Also feeling cold and Chilly and asking for multiple blankets. He has been eating fine. No documented fevers. Workup and emergency room shows evidence of pneumonia and urinary tract infection Past Med Surg Social Fam HX - Past Medical History Medical history: CHF, coronary artery disease, DVT, diabetes, dialysis, hyperlipidemia, hypertension, renal disease, other Psychiatric history: no psych history - Past Surgical History Surgical History: herniorrhaphy - Social History Smoking Status: Never smoker Smokeless Tobacco Status: No Alcohol use: none Drug use: none - Family History Mother Living Status: Father Living Status: Internal Medicine - H&P: Meds Aspirin Enteric Coated [Aspirin EC] 81 mg PO QAM 09/21/15 [History] Atorvastatin [Lipitor] 10 mg PO QAM 09/21/15 [History] Calcium Acetate [Phos-LO] 1,334 mg PO TIDWM 09/21/15 [History] Citalopram [CeleXA] 10 mg PO QAM 09/21/15 [History] Finasteride [Proscar] 5 mg PO QAM 09/21/15 [History] Insulin Aspart Prot/Insuln Asp [Novolog Mix 70-30 Flexpen Syrn] 10 unit SQ BID MDD per sliding scale 09/21/15 [History] Multivitamin/Iron/Folic Acid [Centrum Complete Multivit Tab] 1 tab PO QAM [History] Nitroglycerin 0.4 mg SL AD PRN 09/21/15 [History] Clopidogrel Bisulfate [Plavix] 75 mg PO DAILY 30 Days 07/17/16 [Rx] Carvedilol 3.125 mg PO BID 09/21/16 [History] Docusate Sodium [Dok] 100 mg PO BID 09/21/16 [History] Loratadine [Claritin] 10 mg PO DAILY 09/21/16 [History] Insulin Glargine,Hum.rec.anlog [Lantus Solostar] 15 unit SQ QAM AND QHS [History] Ipratropium/Albuterol Neb [Duoneb] 3 ml IH Q6HR 10/21/16 [History] Isosorbide MONOnitrate (24 HR) [Imdur] 30 mg PO DAILY #20 tab.er.24h 10/21/16 [ Rx] CloNIDine HCl 0.1 mg PO TID PRN 12/04/16 [History] Amoxicillin [Amoxil] 250 mg PO BID 3 Days 12/07/16 [Rx] Losartan [Cozaar] 50 mg PO QAM #30 tablet 12/07/16 [Rx] OxyCODONE/APAP 5/325 [Percocet 5/325 MG] 1 each PO Q8HR PRN #25 tablet 12/07/16 [Rx] Lidocaine/Prilocaine [Emla] 1 appl TP MOWEFR 12/15/16 [History] Allergies No Known Allergies Allergy (Verified 12/15/16 08:24) All Systems PM: A 10-system review of systems was performed and is negative for pertinent findings except as documented above in the HPI. Review of systems: 10 point ROS is negative except for HPI - Constitutional Vitals: Temp Pulse Resp BP Pulse Ox 98.2 F 92 16 156/78 96 12/15/16 08:18 12/15/16 12:02 12/15/16 12:02 12/15/16 12:02 12/15/16 12:02 Exam: Gen.: patient is lethargic, oriented not in distress. Cardiac: Normal S1 S2 no additional sounds or murmurs chest: clear to auscultation abdomen soft nontender nondistended normal bowel sounds lower extremity: lax calf muscles neuro no focal deficit Internal Med - H&P Results - Labs CBC & Chem 7: 12/15/16 09:08 12/15/16 09:08 Labs: Short CBC 12/15/16 Range/Units 09:08 WBC 13.3 H D (4.3-11.1) K/mcL Hgb 11.9 L (12.9-16.9) g/dL Hct 36.5 L (37.5-50.1) % Plt Count 214 (140-400) K/mcL Neutrophils # 11.3 H (1.6-8.9) K/mcL BMP 12/15/16 09:08 Sodium 136 Potassium 4.6 H Chloride 102 Carbon Dioxide 23 BUN 27 H Creatinine 3.77 H Glucose 134 H Calcium 9.0 Cardiac Enzymes 12/15/16 Range/Units 09:08 Troponin I 0.09 H* (0-0.03) ng/mL Liver Function 12/15/16 Range/Units 09:08 Total Bilirubin 0.4 (0.2-1.2) mg/dL Direct Bilirubin 0.2 (0.0-0.5) mg/dL AST 18 (5-34) Units/L ALT 9 (0-55) Units/L Alkaline Phosphatase 103 (38-126) Units/L Albumin 2.9 L (3.5-5.0) g/dL Urine 12/15/16 Range/Units 09:01 Urine Color Dark Yellow (Yellow) Urine Clarity Cloudy A (Clear) Urine pH 5.5 (5.0-8.0) pH Units Ur Specific [place] 1.019 (1.010-1.025) Urine Protein 100 H (Neg-Trace) mg/dL Urine Glucose (UA) 500 H (Normal) mg/dL - ABG Interpretation ABG results: 12/15/16 10:45 ABG pH 7.51 H ABG pCO2 35 ABG pO2 66 L ABG HCO3 27.9 H ABG Total CO2 29.0 H ABG O2 Saturation 95 ABG Base Excess 4.8 H - Impressions ITS Impressions Chest X-Ray 12/15/16 08:37 IMPRESSION: 1. Right basilar airspace disease either due to atelectasis or developing pneumonia. D/ / Ranjit Hdz MD / Ranjit Hdz MD Interpreting Provider: Ranjit Hdz MD
[2016-12-15] MEDS ORDERED: Vancomycin 1,000 MG in D5% in Water 250 ML IVPB ONE (14:00)
[2016-12-15] MEDS: Piperacillin/Tazobactam 3.375 GM in D5% in Water (Mini-Bag+) 100 ML IVPB SCH (14:22)
[2016-12-15] MEDS ORDERED: Vancomycin 1 EACH in EMPTY BAG 1 EACH IVPB SCH (15:00)
[2016-12-15] MEDS: Ipratropium/Albuterol Neb 3 ML IH SCH ×2 (16:33→21:58)
[2016-12-15] MEDS ORDERED: *HR* Dextrose 50 % in Water (Syg) 50 ML SYRINGE ONE (16:54)
[2016-12-15] MEDS: Insulin LISPRO 300 UNITS/3 ML VIAL SQ SCH ×2 (17:01→23:49)
[2016-12-15] MEDS: Calcium Acetate 667 MG CAPSULE PO SCH (17:01)
--- NOTE | 2016-12-15 20:34 | Electrocardiograph Report ---
[facility] Test Date: 2016-12-15 Pat Name: Jalil Dawson Department: 104 Room: 2A51 Gender: M [employer]is Instructor: : [id number] Requested By: Ray Bernard Order Number: [id number] Reading MD: Ginger Tinajero DO Measurements Intervals [place] Rate: 94 P: 34 UT: 164 QRS: 73 QRSD: 102 T: 70 QT: 370 QTc: 421 Interpretive Statements SINUS RHYTHM WITH OCCASIONAL VENTRICULAR PREMATURE COMPLEXES SEPTAL MYOCARDIAL INFARCTION, OF INDETERMINATE AGE Electronically Signed On 12-15-2016 20:33:02 EST by Ginger Tinajero DO
[2016-12-15] MEDS: *HR* Heparin 5,000 UNIT/ML VIAL SQ SCH (21:08)
[2016-12-16] MEDS: Ipratropium/Albuterol Neb 3 ML IH SCH ×4 (03:52→22:57)
[2016-12-16] MEDS: *HR* Heparin 5,000 UNIT/ML VIAL SQ SCH ×2 (05:55→18:38)
[2016-12-16] MEDS: Piperacillin/Tazobactam 3.375 GM in D5% in Water (Mini-Bag+) 100 ML IVPB SCH ×2 (05:55→17:01)
[2016-12-16] MEDS: Insulin LISPRO 300 UNITS/3 ML VIAL SQ SCH ×3 (05:56→18:38)
[2016-12-16 07:08] LABS: Basophils # 0.1 K/mcL (0.0-0.2); Basophils % 0.5 %; Eosinophils # 0.4 K/mcL (0.0-0.6); Hematocrit 31.1 % (37.5-50.1); Hemoglobin 10.3 g/dL (12.9-16.9); Immature Platelets 5.7 % (1.1-6.1); Lymphocytes # 2.6 K/mcL (0.6-4.6); Lymphocytes % 24.7 %; Mean Corpuscular HGB Conc 33.1 g/dL (31.6-35.5); Mean Corpuscular Hemoglobin 31.4 pg (28.0-33.3); Mean Corpuscular Volume 94.8 fL (83.0-100.0); Mean Platelet Volume 12.3 fL (9.4-12.4); Monocytes # 1.8 K/mcL (0.0-1.3); Monocytes % 17.3 %; Platelet Count 167 K/mcL (140-400); Red Blood Count 3.28 M/mcL (4.19-5.50); Red Cell Distribution Width 13.4 % (11.5-14.5); Segmented Neutrophils % 52.5 %
[2016-12-16 07:11] LABS: Calcium 8.7 mg/dL (8.6-10.8)
[2016-12-16 07:57] LABS: Magnesium 1.8 mg/dL (1.6-2.6)
[2016-12-16 07:59] LABS: Potassium 5.9 mEq/L (3.5-4.5)
[2016-12-16 08:08] LABS: Neutrophils # 5.5 K/mcL (1.6-8.9)
[2016-12-16] MEDS: Calcium Acetate 667 MG CAPSULE PO SCH ×3 (08:17→16:59)
[2016-12-16] MEDS: Finasteride 5 MG TABLET PO SCH (08:18)
[2016-12-16] MEDS: Aspirin Enteric Coated 81 MG Tablet PO SCH (08:18)
[2016-12-16] MEDS: Famotidine 20 MG TABLET PO SCH (08:18)
[2016-12-16] MEDS ORDERED: 0.9 % Sodium Chloride 250 ML IV PRN (08:59)
[2016-12-16] MEDS ORDERED: 0.9 % Sodium Chloride 1,000 ML PRIME SCH (09:00)
--- NOTE | 2016-12-16 11:43 | Nephrology Consult Note ---
Date of Encounter: 12/16/16 Time of Encounter: 10:20 Assessment and Plan (1) ESRD (end stage renal disease) Current Visit: Yes Status: Acute Will continue HD with UF as tolerated Will resume phoslo for phoc control Hgb noted stable (2) Altered mental status Current Visit: Yes Status: Acute Per primary team Qualifiers: Altered mental status type: delirium Qualified Code(s): R41.0 - Disorientation, unspecified (3) Hyperkalemia Current Visit: No Status: Acute Will use 1k bath for the first hour of HD and then 2 k bath for the last 2 hours STAT repeat potassium after HD Renal diet advised History of Present Illness - Reason for Consult Consult date: 12/16/16 end stage renal disease Requesting physician: Jake Ordonez - History of Present Illness 89 y o AAmale with PMH of DM, HTN, CAD, CHF and ESRD on HD admitted from [facility] after he was noted with hypoglycemia with resultant altered mental status overnight. Renal consulted for ESRD management. Last HD noted onwednesday. Pt seen and examined at HD unit still with some confusion. He denies any complaints. No cough per pt. No SOB although being treated by primary team for possible PNA. No chest pain. No fevers/chills. Past Med Surg Social Fam HX - Past Medical History Medical history: CHF, coronary artery disease, DVT, diabetes, dialysis, hyperlipidemia, hypertension, renal disease, other Psychiatric history: no psych history - Past Surgical History Surgical History: herniorrhaphy - Social History Smoking Status: Never smoker Smokeless Tobacco Status: No Alcohol use: none Drug use: none - Family History Mother Living Status: Father Living Status: Medications and Allergies Aspirin Enteric Coated [Aspirin EC] 81 mg PO QAM 09/21/15 [History] Atorvastatin [Lipitor] 10 mg PO QAM 09/21/15 [History] Calcium Acetate [Phos-LO] 1,334 mg PO TIDWM 09/21/15 [History] Citalopram [CeleXA] 10 mg PO QAM 09/21/15 [History] Finasteride [Proscar] 5 mg PO QAM 09/21/15 [History] Insulin Aspart Prot/Insuln Asp [Novolog Mix 70-30 Flexpen Syrn] 10 unit SQ BID MDD per sliding scale 09/21/15 [History] Multivitamin/Iron/Folic Acid [Centrum Complete Multivit Tab] 1 tab PO QAM [History] Nitroglycerin 0.4 mg SL AD PRN 09/21/15 [History] Clopidogrel Bisulfate [Plavix] 75 mg PO DAILY 30 Days 07/17/16 [Rx] Carvedilol 3.125 mg PO BID 09/21/16 [History] Docusate Sodium [Dok] 100 mg PO BID 09/21/16 [History] Loratadine [Claritin] 10 mg PO DAILY 09/21/16 [History] Insulin Glargine,Hum.rec.anlog [Lantus Solostar] 15 unit SQ QAM AND QHS [History] Ipratropium/Albuterol Neb [Duoneb] 3 ml IH Q6HR 10/21/16 [History] Isosorbide MONOnitrate (24 HR) [Imdur] 30 mg PO DAILY #20 tab.er.24h 10/21/16 [ Rx] CloNIDine HCl 0.1 mg PO TID PRN 12/04/16 [History] Amoxicillin [Amoxil] 250 mg PO BID 3 Days 12/07/16 [Rx] Losartan [Cozaar] 50 mg PO QAM #30 tablet 12/07/16 [Rx] OxyCODONE/APAP 5/325 [Percocet 5/325 MG] 1 each PO Q8HR PRN #25 tablet 12/07/16 [Rx] Lidocaine/Prilocaine [Emla] 1 appl TP MOWEFR 12/15/16 [History] Allergies No Known Allergies Allergy (Verified 12/15/16 08:24) Review of Systems All Systems: reviewed and no additional remarkable complaints except as stated ( 10 systems noted) Exam - Vital Signs Vital signs: Initial Vital Signs Temp Pulse Resp BP Pulse Ox 98.2 F 84 16 167/92 95 12/15/16 08:18 12/15/16 08:18 12/15/16 08:18 12/15/16 08:18 12/15/16 08:18 Vital Signs - Last 8 Hours Temp Pulse Resp BP Pulse Ox 12/16/16 07:29 98.8 F 90 16 180/80 92 L 12/16/16 05:01 98.1 F 89 16 161/67 97 12/16/16 03:52 18 93 L Intake and Output 12/15/16 12/16/16 12/16/16 23:59 07:59 15:59 Intake Total 280 / 280 Output Total 350 / 350 Balance -70 / -70 Intake: IV Fluids 100 / 100 Zosyn 3.375 GM In 100 / 100 Dextrose 5% (Minibag+) 100 ML 100 ML @ 25 mls/hr IVPB Q12H MALDONADO Rx#: [id number] Oral 180 / 180 Output: Catheter 350 / 350 Other: Meal tea Percent of Meal Consumed 35% Weight 66.6 kg Blood Glucose* 148 132 Patient Weight 12/16/16 23:59 Weight 66.6 kg - General Appearance General appearance: chronically ill, frail (NAD) EENT: ATNC, mucous membranes moist Neck: no JVD, supple Additional Comments: good areation ant bilat Cardiology: no edema, normal S1, normal S2 - Dialysis Access Dialysis Vascular Access: Arteriovenous Fistula thrill: Yes bruit: Yes Gastrointestinal: no tenderness, no guarding Integumentary: warm and dry Neurologic: confused Musculoskeletal: no deformities Psychiatric: cooperative Results - Lab Results 12/16/16 06:28 12/17/16 11:58 Most recent lab results ABG pH 7.51 pH Units (7.32-7.45) H 12/15/16 10:45 ABG pCO2 35 mmHg (35-45) 12/15/16 10:45 ABG pO2 66 mmHg (85-104) L 12/15/16 10:45 ABG HCO3 27.9 mEQ/L (21-27) H 12/15/16 10:45 ABG O2 Saturation 95 % (95-98) 12/15/16 10:45 Calcium 8.7 mg/dL (8.6-10.8) 12/16/16 06:28 Phosphorus 4.4 mg/dL (2.3-4.7) 12/15/16 09:08 Magnesium 1.8 mg/dL (1.6-2.6) 12/16/16 06:28 Consult Discharge Plan - Plan Referrals: Tristen Olivier [Primary Care Provider] - (Patient will follow up with [facility] pcp)
[2016-12-16] MEDS ORDERED: cloNIDine HCl 0.1 MG TABLET PO PRN (12:49)
[2016-12-16] MEDS ORDERED: 0.9 % Sodium Chloride 2,000 ML ONE (14:48)
[2016-12-16] MEDS ORDERED: Haloperidol Lactate 5 MG/ML VIAL ONE (15:05)
--- NOTE | 2016-12-16 15:48 | Internal Med Progress Note ---
Date of Encounter: 12/16/16 Time of Encounter: 15:43 - Assessment and plan (1) Toxic metabolic encephalopathy Current Visit: Yes Status: Acute Assessment and plan: Likely due to pneumonia and acute urinary tract infection. Given his advanced age, patient may also have underlying dementia contributing to his delirious episodes. Moderate risk for complications. (2) ESRD (end stage renal disease) Current Visit: Yes Status: Acute Assessment and plan: Continue dialysis per nephrology recommendations. patient was dialyzed earlier today. (3) HCAP (healthcare-associated pneumonia) Current Visit: Yes Status: Acute Assessment and plan: On broad-spectrum antibiotics to cover gram-negative organisms and MRSA. Will repeat chest x-ray tomorrow. Cultures are negative so far. (4) Hypoglycemia Current Visit: Yes Status: Acute (5) UTI (urinary tract infection) Current Visit: Yes Status: Acute Assessment and plan: Patient has increased WBC in his urine and serum history of UTI. However as he is end-stage renal disease patient, will wait for culture results. Patient is receiving antibiotics for pneumonia at this time. Qualifiers: Urinary tract infection type: site unspecified Hematuria presence: with hematuria Qualified Code(s): N39.0 - Urinary tract infection, site not specified; R31.9 - Hematuria, unspecified - Subjective Interval history: Patient seen earlier today during dialysis was awake and alert. Denied any complaints. After dialysis he became delirious this afternoon and almost had a fall from his bed but was slowly lowered to the floor by staff to prevent injury. Patient was also agitated and trying to pull out his Carmen catheter. He received Haldol 5 mg and since then he has been resting. - Constitutional Vitals: Temp Pulse Resp BP Pulse Ox 98.8 F 90 16 120/55 92 L 12/16/16 13:55 12/16/16 07:29 12/16/16 13:55 12/16/16 13:55 12/16/16 07:29 General appearance: Present: pleasant, answers questions appropriately Exam: Was awake, alert and oriented this morning. Currently somnolent. - Respiratory Respiratory exam: Present: CTAB. Absent: accessory muscle use, rales, rhonchi, wheezes - Cardiovascular Cardiovascular exam: Present: RRR, +S1, +S2. Absent: diastolic murmur, gallop, rubs, systolic murmur - GI/Abdominal GI/Abdominal exam: Present: normal bowel sounds, soft, no peritoneal signs. Absent: distended, tenderness - Extremities Exam Extremities exam: Present: warm, radial pulses palpable and symetrical. Absent : calf tenderness, cyanotic, pedal edema - Neurological Exam Neurological exam: Present: alert, no focal deficits. Absent: facial droop, speech deficit - Skin Skin exam: Present: dry, intact Internal Medicine: Result - Labs CBC & Chem 7: 12/16/16 06:28 12/16/16 13:47 Labs: Short CBC 12/16/16 Range/Units 06:28 WBC 10.4 (4.3-11.1) K/mcL Hgb 10.3 L D (12.9-16.9) g/dL Hct 31.1 L (37.5-50.1) % Plt Count 167 (140-400) K/mcL Neutrophils # 5.5 (1.6-8.9) K/mcL BMP 12/16/16 12/16/16 06:28 13:47 Sodium 137 Potassium 5.9 H D 3.2 L D Chloride 102 Carbon Dioxide 19 BUN 39 H D Creatinine 4.87 H Glucose 138 H Calcium 8.7 Cardiac Enzymes 12/15/16 12/15/16 12/16/16 Range/Units 15:51 21:25 06:28 Troponin I 0.22 H* 0.27 H* 0.24 H* (0-0.03) ng/mL - ABG Interpretation ABG results: ABG ABG pH 7.51 pH Units (7.32-7.45) H 12/15/16 10:45 ABG pCO2 35 mmHg (35-45) 12/15/16 10:45 ABG pO2 66 mmHg (85-104) L 12/15/16 10:45 ABG O2 Saturation 95 % (95-98) 12/15/16 10:45 PT/INR, D-dimer PT 10.9 Seconds (9.4-12.1) 12/15/16 09:08 Consult Discharge Plan - Plan Referrals: Tristen Olivier [Primary Care Provider] - (Patient will follow up with [facility] pcp) - Attending Attestation This document has been at least partially created by [employer] recognition technology by Dr. Márquez. Errors in grammar, wording or other phrases may exist. If errors are found after the documentation is signed, they will be addressed individually in the addendum section of this document when appropriate.
[2016-12-16] MEDS ORDERED: Vancomycin 1,000 MG in D5% in Water 250 ML IVPB ONE (16:00)
[2016-12-16] MEDS: Isosorbide MONOnitrate (24 HR) 30 MG TAB.ER.24H PO SCH (16:47)
[2016-12-16] MEDS ORDERED: *HR* LORazepam 2 MG/ML VIAL IVP STA (22:50)
[2016-12-16] MEDS ORDERED: Haloperidol Lactate 5 MG/ML VIAL IVP STA (22:50)
[2016-12-17] MEDS ORDERED: Haloperidol Lactate 5 MG/ML VIAL IVP PRN (01:00)
[2016-12-17] MEDS: Piperacillin/Tazobactam 3.375 GM in D5% in Water (Mini-Bag+) 100 ML IVPB SCH ×2 (03:55→15:16)
[2016-12-17] MEDS: Insulin LISPRO 300 UNITS/3 ML VIAL SQ SCH ×4 (03:59→17:19)
[2016-12-17] MEDS: Ipratropium/Albuterol Neb 3 ML IH SCH ×4 (04:10→22:31)
[2016-12-17] MEDS: *HR* Heparin 5,000 UNIT/ML VIAL SQ SCH ×2 (06:16→18:13)
[2016-12-17] MEDS: Finasteride 5 MG TABLET PO SCH (09:00)
[2016-12-17] MEDS ORDERED: Vitamin B Complex/Vit C/Vit E 1 EACH TABLET PO SCH (09:00)
[2016-12-17] MEDS ORDERED: Folic Acid 1 MG TABLET PO SCH (09:00)
[2016-12-17] MEDS ORDERED: Thiamine (B-1) 100 MG TABLET PO SCH (09:00)
[2016-12-17] MEDS: Calcium Acetate 667 MG CAPSULE PO SCH ×3 (09:00→17:17)
[2016-12-17] MEDS: Isosorbide MONOnitrate (24 HR) 30 MG TAB.ER.24H PO SCH (09:01)
[2016-12-17] MEDS: Aspirin Enteric Coated 81 MG Tablet PO SCH (09:01)
[2016-12-17] MEDS: Famotidine 20 MG TABLET PO SCH (09:01)
--- NOTE | 2016-12-17 11:04 | Nephrology Progress Note ---
<LozaRon millardjoe Chun - Last Filed: 12/17/16 11:04> Date of Encounter: 12/17/16 Time of Encounter: 11:02 - Assessment and Plan (1) ESRD (end stage renal disease) Current Visit: Yes Status: Acute Plan for HD tomorrow Continue renal diet Avoid nephrotoxins if possble (2) Altered mental status Current Visit: Yes Status: Acute per primary team Qualifiers: Altered mental status type: delirium Qualified Code(s): R41.0 - Disorientation, unspecified (3) Hypoglycemia Current Visit: Yes Status: Acute per primary team Subjective Principal diagnosis: Confusion, ESRD on dialysis Interval history: Patient seen and examined. Sleeps through exam. Sitter at bedside. Objective - Vital Signs Vital signs: Vital Signs Temp Pulse Resp BP Pulse Ox 12/17/16 09:40 18 96 12/17/16 07:29 97.7 F 81 16 153/78 97 12/17/16 04:10 18 98 12/17/16 04:05 97.8 F 90 16 145/76 98 12/16/16 22:57 16 93 L 12/16/16 16:46 98 F 78 14 163/91 95 12/16/16 15:50 16 120/55 3 L 12/16/16 13:55 98.8 F 16 120/55 12/16/16 13:45 109/66 12/16/16 13:30 137/62 12/16/16 13:15 102/57 12/16/16 13:00 112/55 12/16/16 12:45 144/54 12/16/16 12:30 144/69 12/16/16 12:15 135/74 12/16/16 12:00 166/64 12/16/16 11:45 144/66 12/16/16 11:30 146/55 12/16/16 11:15 159/71 Intake and Output 12/16/16 12/17/16 12/17/16 23:59 07:59 15:59 Intake Total 100 / 100 0 / 0 240 / 240 Output Total 100 / 100 0 / 0 Balance 100 / 100 -100 / -100 240 / 240 Intake: IV Fluids 100 / 100 Zosyn 3.375 GM In 100 / 100 Dextrose 5% (Minibag+) 100 ML 100 ML @ 25 mls/hr IVPB Q12H MALDONADO Rx#: [id number] Oral 0 / 0 240 / 240 Output: Urine 0 / 0 Catheter 100 / 100 Other: Meal Breakfast Percent of Meal Consumed 95% Weight 59.194 kg Blood Glucose* 176 225 Patient Weight 12/17/16 23:59 Weight 59.194 kg - General Appearance General appearance: Present: well-developed, well-nourished EENT: Present: ATNC Neck: Present: supple Respiratory: Present: clear Cardiology: Present: no edema, normal S1, normal S2 Dialysis Vascular Access: Arteriovenous Fistula Gastrointestinal: Present: no guarding Integumentary: Present: warm and dry - Lab 12/16/16 06:28 12/16/16 13:47 Most recent lab results ABG pH 7.51 pH Units (7.32-7.45) H 12/15/16 10:45 ABG pCO2 35 mmHg (35-45) 12/15/16 10:45 ABG pO2 66 mmHg (85-104) L 12/15/16 10:45 ABG HCO3 27.9 mEQ/L (21-27) H 12/15/16 10:45 ABG O2 Saturation 95 % (95-98) 12/15/16 10:45 Calcium 8.7 mg/dL (8.6-10.8) 12/16/16 06:28 Phosphorus 4.4 mg/dL (2.3-4.7) 12/15/16 09:08 Magnesium 1.8 mg/dL (1.6-2.6) 12/16/16 06:28 Consult Discharge Plan - Plan Referrals: Tristen Olivier [Primary Care Provider] - (Patient will follow up with [facility] pcp) <Samuel Ruiz - Last Filed: 12/18/16 00:13> Date of Encounter: 12/17/16 Objective - Vital Signs Vital signs: Vital Signs Temp Pulse Resp BP Pulse Ox 12/17/16 22:33 16 98 12/17/16 20:30 99.6 F 87 18 108/67 97 12/17/16 15:58 16 94 L 12/17/16 15:49 98.3 F 86 16 109/61 95 12/17/16 11:35 97.3 F L 88 16 147/73 98 12/17/16 09:40 18 96 12/17/16 07:29 97.7 F 81 16 153/78 97 12/17/16 04:10 18 98 12/17/16 04:05 97.8 F 90 16 145/76 98 Intake and Output 12/17/16 12/17/16 12/18/16 15:59 23:59 07:59 Intake Total 480 / 480 240 / 240 Output Total 0 / 0 0 / 0 Balance 480 / 480 240 / 240 Intake: Oral 480 / 480 240 / 240 Output: Urine 0 / 0 0 / 0 Other: Meal Breakfast Dinner Percent of Meal Consumed 100% 50% Blood Glucose* 238 297 - Lab 12/16/16 06:28 12/17/16 11:58 Most recent lab results ABG pH 7.51 pH Units (7.32-7.45) H 12/15/16 10:45 ABG pCO2 35 mmHg (35-45) 12/15/16 10:45 ABG pO2 66 mmHg (85-104) L 12/15/16 10:45 ABG HCO3 27.9 mEQ/L (21-27) H 12/15/16 10:45 ABG O2 Saturation 95 % (95-98) 12/15/16 10:45 Calcium 8.9 mg/dL (8.6-10.8) 12/17/16 11:58 Phosphorus 4.4 mg/dL (2.3-4.7) 12/15/16 09:08 Magnesium 1.8 mg/dL (1.6-2.6) 12/16/16 06:28 - Attending Attestation I examined this patient and my medical decision-making was reviewed with the [employer] SPECIALIST/PA/Advanced Practice Nurse/Resident Physician. I agree with the documented findings, disposition and treatment plan as described except to the extent set forth below. Pt seen and examined still confused. s/p HD yesterday and next HD tomorrow. PE unchanged
[2016-12-17] MEDS ORDERED: *HR* Dextrose 50 % in Water (Syg) 50 ML SYRINGE IVP PRN (12:15)
[2016-12-17] MEDS ORDERED: D5% in Water 1,000 ML IV PRN (12:15)
[2016-12-17] MEDS ORDERED: Dextrose Gel 15 GM PO PRN ×2 (12:15)
[2016-12-17 12:19] LABS: Calcium 8.9 mg/dL (8.6-10.8)
--- NOTE | 2016-12-17 14:17 | Internal Med Progress Note ---
Date of Encounter: 12/17/16 Time of Encounter: 10:35 - Assessment and plan (1) Toxic metabolic encephalopathy Current Visit: Yes Status: Acute Assessment and plan: Most likely related to infectious process and metabolic processes. May also have underlying dementia and associated delirium. Continue supportive care. One-to-one sitter. Haldol as needed. For agitation. High risk for complications. (2) ESRD (end stage renal disease) Current Visit: Yes Status: Acute Assessment and plan: Nephrology following. Continue dialysis per nephrology recommendations. (3) HCAP (healthcare-associated pneumonia) Current Visit: Yes Status: Acute Assessment and plan: On vancomycin and Zosyn. Blood cultures have been negative. Will repeat chest x-ray tomorrow. (4) Hypoglycemia Current Visit: Yes Status: Acute (5) UTI (urinary tract infection) Current Visit: Yes Status: Acute Assessment and plan: Urine cultures are negative. Qualifiers: Urinary tract infection type: site unspecified Hematuria presence: with hematuria Qualified Code(s): N39.0 - Urinary tract infection, site not specified; R31.9 - Hematuria, unspecified - Subjective Interval history: Recent is awake and alert today. Tolerated breakfast well. Remains confused and disoriented. He has not been agitated this morning. - Constitutional Vitals: Temp Pulse Resp BP Pulse Ox 97.3 F L 88 16 147/73 98 12/17/16 11:35 12/17/16 11:35 12/17/16 11:35 12/17/16 11:35 12/17/16 11:35 General appearance: Present: cooperative, pleasant, no acute distress - Respiratory Respiratory exam: Present: CTAB. Absent: accessory muscle use, rales, rhonchi, wheezes - Cardiovascular Cardiovascular exam: Present: RRR, +S1, +S2. Absent: diastolic murmur, gallop, rubs, systolic murmur - GI/Abdominal GI/Abdominal exam: Present: normal bowel sounds, soft, no peritoneal signs. Absent: distended, tenderness - Neurological Exam Neurological exam: Present: altered, no focal deficits. Absent: oriented X3, facial droop, speech deficit - Skin Skin exam: Present: dry, intact Internal Medicine: Result - Labs CBC & Chem 7: 12/16/16 06:28 12/17/16 11:58 Labs: BMP 12/16/16 12/17/16 13:47 11:58 Sodium 137 Potassium 3.2 L D 5.0 H D Chloride 97 L Carbon Dioxide 25 BUN 33 H Creatinine 4.38 H Glucose 242 H Calcium 8.9 - ABG Interpretation ABG results: ABG ABG pH 7.51 pH Units (7.32-7.45) H 12/15/16 10:45 ABG pCO2 35 mmHg (35-45) 12/15/16 10:45 ABG pO2 66 mmHg (85-104) L 12/15/16 10:45 ABG O2 Saturation 95 % (95-98) 12/15/16 10:45 PT/INR, D-dimer PT 10.9 Seconds (9.4-12.1) 12/15/16 09:08 Consult Discharge Plan - Plan Referrals: Tristen Olivier [Primary Care Provider] - (Patient will follow up with [facility] pcp) - Attending Attestation This document has been at least partially created by [employer] recognition technology by Dr. Márquez. Errors in grammar, wording or other phrases may exist. If errors are found after the documentation is signed, they will be addressed individually in the addendum section of this document when appropriate.
--- NOTE | 2016-12-17 19:35 | Electrocardiograph Report ---
[place] [id number] Test Date: 2016-12-15 Pat Name: Jalil Dawson Department: 112 Room: [facility] Gender: M Binman: : 1925 Requested By: Jake Ordonez Order Number: [id number] Reading MD: Ray Sanchez Measurements Intervals [place] Rate: 87 P: 43 [place]: 181 QRS: 75 QRSD: 106 T: 95 QT: 392 QTc: 436 Interpretive Statements SINUS RHYTHM Electronically Signed On 12-17-2016 19:33:33 EST by Ray Sanchez
[2016-12-17] MEDS ORDERED: Insulin LISPRO 300 UNITS/3 ML VIAL SQ SCH (21:00)
[2016-12-17] MEDS ORDERED: Insulin DETEMIR 100 UNIT/ML X5UNITS SQ SCH (21:00)
[2016-12-17] MEDS: Melatonin 3 MG TABLET PO SCH ×2 (21:10)
[2016-12-18] MEDS: Piperacillin/Tazobactam 3.375 GM in D5% in Water (Mini-Bag+) 100 ML IVPB SCH (01:30)
[2016-12-18] MEDS: Acetaminophen 325 MG TABLET PO PRN ×2 (03:34→10:48)
[2016-12-18] MEDS: Ipratropium/Albuterol Neb 3 ML IH SCH ×3 (04:26→16:11)
[2016-12-18] MEDS: *HR* Heparin 5,000 UNIT/ML VIAL SQ SCH (06:08)
[2016-12-18] MEDS: Calcium Acetate 667 MG CAPSULE PO SCH ×2 (07:48→14:16)
[2016-12-18] MEDS: Finasteride 5 MG TABLET PO SCH (07:49)
[2016-12-18] MEDS: Famotidine 20 MG TABLET PO SCH (07:49)
[2016-12-18] MEDS: Aspirin Enteric Coated 81 MG Tablet PO SCH (07:49)
[2016-12-18] MEDS: Insulin LISPRO 300 UNITS/3 ML VIAL SQ SCH ×2 (07:50→14:16)
[2016-12-18] MEDS ORDERED: 0.9 % Sodium Chloride 4,000 ML ONE (08:12)
[2016-12-18 08:28] LABS: Calcium 9.4 mg/dL (8.6-10.8); Potassium 4.5 mEq/L (3.5-4.5)
[2016-12-18 08:46] LABS: Hematocrit 31.7 % (37.5-50.1); Hemoglobin 10.5 g/dL (12.9-16.9); Mean Corpuscular HGB Conc 33.1 g/dL (31.6-35.5); Mean Corpuscular Volume 93.5 fL (83.0-100.0); Platelet Count 183 K/mcL (140-400); Red Blood Count 3.39 M/mcL (4.19-5.50); Red Cell Distribution Width 13.5 % (11.5-14.5)
[2016-12-18] MEDS ORDERED: 0.9 % Sodium Chloride 250 ML IV PRN (09:33)
[2016-12-18] MEDS: Isosorbide MONOnitrate (24 HR) 30 MG TAB.ER.24H PO SCH (14:16)
--- NOTE | 2016-12-18 14:39 | Discharge Summary ---
Date of Encounter: 12/18/16 Time of Encounter: 14:39 - Discharge Diagnosis (1) Toxic metabolic encephalopathy Priority: Primary Status: Acute (2) ESRD (end stage renal disease) Priority: Secondary Status: Acute (3) HCAP (healthcare-associated pneumonia) Priority: Secondary Status: Acute (4) Hypoglycemia Priority: Secondary Status: Acute (5) UTI (urinary tract infection) Priority: Secondary Status: Ruled-out Qualifiers: Urinary tract infection type: site unspecified Hematuria presence: with hematuria Qualified Code(s): N39.0 - Urinary tract infection, site not specified; R31.9 - Hematuria, unspecified (6) Diabetes mellitus Priority: Secondary Status: Chronic Qualifiers: Diabetes mellitus type: type 2 Diabetes mellitus complication status: with kidney complications Diabetes mellitus complication detail: with chronic kidney disease Diabetes mellitus intermediate insulin use: with rn long term care use Chronic kidney disease stage: on chronic dialysis Qualified Code(s): E11.22 - Type 2 diabetes mellitus with diabetic chronic kidney disease; N18.6 - End stage renal disease; Z79.4 - nursing home (current) use of insulin; Z99.2 - Dependence on renal dialysis - Discharge Medications Prescriptions: OxyCODONE/APAP 5/325 [Percocet 5/325 MG] 1 each PO Q8HR PRN #20 tablet PRN Reason: Pain Cefdinir [Omnicef] 300 mg PO Q48H #7 capsule Doxycycline 100 mg PO BID #14 capsule Home Medications: Aspirin Enteric Coated [Aspirin EC] 81 mg PO QAM 09/21/15 [History] Atorvastatin [Lipitor] 10 mg PO QAM 09/21/15 [History] Calcium Acetate [Phos-LO] 1,334 mg PO TIDWM 09/21/15 [History] Citalopram [CeleXA] 10 mg PO QAM 09/21/15 [History] Finasteride [Proscar] 5 mg PO QAM 09/21/15 [History] Insulin Aspart Prot/Insuln Asp [Novolog Mix 70-30 Flexpen Syrn] 10 unit SQ BID MDD per sliding scale 09/21/15 [History] Multivitamin/Iron/Folic Acid [Centrum Complete Multivit Tab] 1 tab PO QAM [History] Nitroglycerin 0.4 mg SL AD PRN 09/21/15 [History] Clopidogrel Bisulfate [Plavix] 75 mg PO DAILY 30 Days 07/17/16 [Rx] Carvedilol 3.125 mg PO BID 09/21/16 [History] Docusate Sodium [Dok] 100 mg PO BID 09/21/16 [History] Loratadine [Claritin] 10 mg PO DAILY 09/21/16 [History] Ipratropium/Albuterol Neb [Duoneb] 3 ml IH Q6HR 10/21/16 [History] Isosorbide MONOnitrate (24 HR) [Imdur] 30 mg PO DAILY #20 tab.er.24h 10/21/16 [ Rx] CloNIDine HCl 0.1 mg PO TID PRN 12/04/16 [History] Losartan [Cozaar] 50 mg PO QAM #30 tablet 12/07/16 [Rx] Lidocaine/Prilocaine [Emla] 1 appl TP MOWEFR 12/15/16 [History] Cefdinir [Omnicef] 300 mg PO Q48H #7 capsule 12/18/16 [Rx] Doxycycline 100 mg PO BID #14 capsule 12/18/16 [Rx] Insulin Glargine,Hum.rec.anlog [Lantus Solostar] 10 unit SQ DAILY #1 12/18/16 [ Rx] OxyCODONE/APAP 5/325 [Percocet 5/325 MG] 1 each PO Q8HR PRN #20 tablet 12/18/16 [Rx] Allergies/Adverse Reactions: Allergies No Known Allergies Allergy (Verified 12/15/16 08:24) Procedures/tests Complete & Pending: Procedures Performed prior 72 hours Category Date Time Status EKG [ECG 12 lead ECG] [ECG] Stat Y 12/15/16 16:40 Completed Date of admission: 12/15/16 14:06 Primary care physician: Tristen Olivier Consults: 12/16/16 08:11 Consult to Nephrology [CONS] Routine Consulting Provider: Dagoberto Oh Reason for Consult: Dialysis Time Notified: 08:11 Call Completed: Yes 12/16/16 09:00 Consult to Dialysis [CONS] ONCE 12/16/16 10:10 Consult to Grounds Supervisor [CONS] Routine Reason for SW Consult: pt from [facility] but [facility] to go [facility] [place] 12/18/16 09:45 Consult to Dialysis [CONS] ONCE Discharging clinician: Oni Márquez Anticipated date of discharge: 12/18/16 - Patient Status Disposition: Transfer SNF Condition: Good Overall status at discharge: patient is progressing back to baseline - Discharge Instructions Instructions: Urinary Tract Infection in Men (DC), Pneumonia (DC) Follow Up With: Tristen Olivier [Primary Care Provider] - (Patient will follow up with f pcp) - Diet and Activity Activity: as per physical therapy Diet: diabetic diet, low fat, low cholesterol, low salt diet, other (Renal) Hospital course: Mr. Dawson is a 89 year old male with history of end-stage renal disease on hemodialysis, diabetes mellitus type 2 was admitted here for toxic metabolic encephalopathy and healthcare associated pneumonia. He was treated with broad- spectrum antibiotics with improvement in his clinical condition. Presently, his acute encephalopathy has resolved. His leukocytosis has improved and his blood cultures have been negative. He is stable to be discharged back to halfway facility for rehabilitation. He will complete treat him for pneumonia with Omnicef and doxycycline. He will follow up with nephrology and his primary care provider as outpatient. On presentation he was also hypoglycemic. His blood sugars have improved here and his insulin regimen has been adjusted. I am also decreasing his home Lantus dosage to 10 units once daily. He will continue to be on diabetic and renal diet. Patient had recently been discharged from the hospital following treatment for acute urinary tract infection. His repeat urine culture here has been negative. - Time Spent with Patient Total time spent providing and/or coordinating discharge services: Greater than 30 minutes (40 min) - Constitutional Vitals: Temp Pulse Resp BP Pulse Ox 98.6 F 61 14 110/54 95 12/18/16 13:15 12/18/16 07:09 12/18/16 13:15 12/18/16 13:15 12/18/16 07:09 General appearance: Present: cooperative, A&O X 2, pleasant, no acute distress, answers questions appropriately - Respiratory Respiratory exam: Present: CTAB. Absent: accessory muscle use, rales, rhonchi, wheezes - Cardiovascular Cardiovascular exam: Present: RRR, +S1, +S2. Absent: diastolic murmur, gallop, rubs, systolic murmur - GI/Abdominal GI/Abdominal exam: Present: normal bowel sounds, soft, no peritoneal signs. Absent: distended, tenderness - Neurological Exam Neurological exam: Present: alert, no focal deficits. Absent: facial droop, speech deficit - Attending Attestation This document has been at least partially created by [employer] recognition technology by Dr. Márquez. Errors in grammar, wording or other phrases may exist. If errors are found after the documentation is signed, they will be addressed individually in the addendum section of this document when appropriate.
[2016-12-18 14:54] VITALS: BP 148/85
[2016-12-18] MEDS ORDERED: Vancomycin 500 MG in D5% in Water (Mini-Bag+) 100 ML IVPB ONE (15:00)
--- NOTE | 2016-12-18 15:02 | Physician Discharge Referral ---
ExtendedCare Referral Info Provider in Charge after Transfer: PCP Institutional Level of Care: Skilled - Diagnosis (1) Toxic metabolic encephalopathy Priority: Primary Status: Acute (2) ESRD (end stage renal disease) Priority: Secondary Status: Acute (3) HCAP (healthcare-associated pneumonia) Priority: Secondary Status: Acute (4) Hypoglycemia Priority: Secondary Status: Acute (5) UTI (urinary tract infection) Priority: Secondary Status: Acute (6) Diabetes mellitus Priority: Secondary Status: Chronic Prognosis: Fair Aware of Diagnosis: Patient Aware of Prognosis: Patient - Transfer Medications Prescriptions: OxyCODONE/APAP 5/325 [Percocet 5/325 MG] 1 each PO Q8HR PRN #20 tablet PRN Reason: Pain Cefdinir [Omnicef] 300 mg PO Q48H #7 capsule Doxycycline 100 mg PO BID #14 capsule Home Medications: Aspirin Enteric Coated [Aspirin EC] 81 mg PO QAM 09/21/15 [History] Atorvastatin [Lipitor] 10 mg PO QAM 09/21/15 [History] Calcium Acetate [Phos-LO] 1,334 mg PO TIDWM 09/21/15 [History] Citalopram [CeleXA] 10 mg PO QAM 09/21/15 [History] Finasteride [Proscar] 5 mg PO QAM 09/21/15 [History] Insulin Aspart Prot/Insuln Asp [Novolog Mix 70-30 Flexpen Syrn] 10 unit SQ BID MDD per sliding scale 09/21/15 [History] Multivitamin/Iron/Folic Acid [Centrum Complete Multivit Tab] 1 tab PO QAM [History] Nitroglycerin 0.4 mg SL AD PRN 09/21/15 [History] Clopidogrel Bisulfate [Plavix] 75 mg PO DAILY 30 Days 07/17/16 [Rx] Carvedilol 3.125 mg PO BID 09/21/16 [History] Docusate Sodium [Dok] 100 mg PO BID 09/21/16 [History] Loratadine [Claritin] 10 mg PO DAILY 09/21/16 [History] Ipratropium/Albuterol Neb [Duoneb] 3 ml IH Q6HR 10/21/16 [History] Isosorbide MONOnitrate (24 HR) [Imdur] 30 mg PO DAILY #20 tab.er.24h 10/21/16 [ Rx] CloNIDine HCl 0.1 mg PO TID PRN 12/04/16 [History] Losartan [Cozaar] 50 mg PO QAM #30 tablet 12/07/16 [Rx] Lidocaine/Prilocaine [Emla] 1 appl TP MOWEFR 12/15/16 [History] Cefdinir [Omnicef] 300 mg PO Q48H #7 capsule 12/18/16 [Rx] Doxycycline 100 mg PO BID #14 capsule 12/18/16 [Rx] Insulin Glargine,Hum.rec.anlog [Lantus Solostar] 10 unit SQ DAILY #1 12/18/16 [ Rx] OxyCODONE/APAP 5/325 [Percocet 5/325 MG] 1 each PO Q8HR PRN #20 tablet 12/18/16 [Rx] Allergies/Adverse Reactions: Allergies No Known Allergies Allergy (Verified 12/15/16 08:24) - Respiratory Orders Smoking Cessation: Smoking cessation has been advised. For more information, call the [place] Tobacco Quit Line at 8-152-HHFQ-NOW. - Ancillary Orders May consult with Dentist, Right Of Way Agent, All Around Presser PRN - Advance Directives Code Status: Full Code - Mobility Orders Ambulate - Rehabiliation Orders Rehab Potential: Fair Rehab Orders: Evaluation for Physical Therapy, Evaluation for Occupational Therapy - Diet Orders No Concentrated Sweets, Renal, Cardiac (Diabetic) CERTIFICATION: I certify that the transfer of the above named patient to an Extended Care Facility is necessary for the continuing treatment of the diagnosis listed. The above information is true and accurate reflection of patient's current condition. Confidential - Redisclosure prohibited without a patient's written consent.
--- NOTE | 2016-12-18 15:32 | Nephrology Progress Note ---
Date of Encounter: 12/18/16 Time of Encounter: 15:28 - Assessment and Plan (1) Altered mental status Current Visit: Yes Status: Acute Per primary team. Qualifiers: Altered mental status type: delirium Qualified Code(s): R41.0 - Disorientation, unspecified (2) ESRD (end stage renal disease) Current Visit: Yes Status: Acute HD today. Continue MWF schedule. (3) Hypoglycemia Current Visit: Yes Status: Acute per primary team. Subjective Principal diagnosis: Confusion, ESRD on dialysis Interval history: Mr. Dawson was seen while on dialysis. He was asleep and so not awakened. I anticipated discharge later today. Objective - Vital Signs Vital signs: Vital Signs Temp Pulse Resp BP Pulse Ox 12/18/16 14:49 98.2 F 65 15 148/85 97 12/18/16 13:15 98.6 F 14 110/54 12/18/16 13:10 102/51 12/18/16 12:55 125/49 12/18/16 12:40 115/51 12/18/16 12:25 125/53 12/18/16 12:10 106/46 12/18/16 11:55 108/52 12/18/16 11:40 95/48 12/18/16 11:25 123/55 12/18/16 11:10 116/54 12/18/16 10:55 146/75 12/18/16 10:40 150/78 12/18/16 10:25 154/69 12/18/16 10:10 98.6 F 14 149/66 12/18/16 07:09 98.6 F 61 14 142/77 95 12/18/16 04:27 18 96 12/18/16 03:58 98.1 F 85 19 152/84 99 12/18/16 00:00 97.7 F 89 19 101/53 12/17/16 22:33 16 98 12/17/16 20:30 99.6 F 87 18 108/67 97 12/17/16 15:58 16 94 L 12/17/16 15:49 98.3 F 86 16 109/61 95 Intake and Output 12/17/16 12/18/16 12/18/16 23:59 07:59 15:59 Intake Total 340 / 340 700 / 700 Output Total 0 / 0 3600 / 3600 Balance 340 / 340 -2900 / -2900 Intake: IV Fluids 100 / 100 Zosyn 3.375 GM In 100 / 100 Dextrose 5% (Minibag+) 100 ML 100 ML @ 25 mls/hr IVPB Q12H [facility] Rx#: [id number] Oral 240 / 240 100 / 100 Intake, Rinseback and 600 / 600 Flushes Output: Urine 0 / 0 0 / 0 Total Dialysis Output 3600 / 3600 Other: Meal Dinner Breakfast Percent of Meal Consumed 50% 90% Weight 59.2 kg Blood Glucose* 297 54 187 Hemodialysis Net Fluid 3000 Removed (mL) Patient Weight 12/18/16 23:59 Weight 59.2 kg - General Appearance General appearance: Present: well-developed, well-nourished EENT: Present: ATNC Neck: Present: supple Respiratory: Present: clear Cardiology: Present: regular rate, regular rhythm Gastrointestinal: Present: normoactive bowel sounds, no tenderness Integumentary: Present: warm and dry Neurologic: Present: no focal deficit, alert and oriented x3 Musculoskeletal: Present: no cyanosis Psychiatric: Present: mood/affect appropriate - Lab 12/18/16 08:07 12/18/16 08:07 Most recent lab results ABG pH 7.51 pH Units (7.32-7.45) H 12/15/16 10:45 ABG pCO2 35 mmHg (35-45) 12/15/16 10:45 ABG pO2 66 mmHg (85-104) L 12/15/16 10:45 ABG HCO3 27.9 mEQ/L (21-27) H 12/15/16 10:45 ABG O2 Saturation 95 % (95-98) 12/15/16 10:45 Calcium 9.4 mg/dL (8.6-10.8) 12/18/16 08:07 Phosphorus 4.4 mg/dL (2.3-4.7) 12/15/16 09:08 Magnesium 1.8 mg/dL (1.6-2.6) 12/16/16 06:28 Consult Discharge Plan - Plan Instructions: Urinary Tract Infection in Men (DC), Pneumonia (DC) Referrals: Tristen Olivier [Primary Care Provider] - (Patient will follow up with [facility] pcp) Prescriptions: OxyCODONE/APAP 5/325 [Percocet 5/325 MG] 1 each PO Q8HR PRN #20 tablet PRN Reason: Pain Cefdinir [Omnicef] 300 mg PO Q48H #7 capsule Doxycycline 100 mg PO BID #14 capsule
[2016-12-18] MEDS ORDERED: Amoxicillin/Clavulanate 500 MG TABLET PO SCH (16:00)
[2016-12-18] MEDS ORDERED: Aminoglycoside Consult 1 EACH MC ONE (16:18)
[2016-12-18] MEDS ORDERED: Doxycycline 100 MG CAPSULE PO SCH (21:00)
== END 2016-12-18 16:19 ==
LOC: EMEROO 08:12 → INTOOBSV 14:06 → 2ANU 14:06
PROVIDERS: ADMIT Internal Medicine; ATTEND Internal Medicine

== ENCOUNTER 2016-12-23 19:16 | Observation (INO) ==
[2016-12-23] MEDS ORDERED: *HR* Dextrose 50 % in Water (Syg) 50 ML SYRINGE IVP ONE (19:23)
--- NOTE | 2016-12-23 19:25 | Emergency Department Note ---
Disposition Clinical Impression: HCAP (healthcare-associated pneumonia), Elevated troponin, Hypoglycemia Disposition: Admitted As Inpatient General Adult [facility] - General Chief complaint: ED Altered Mental Status Stated complaint: Low BS Time Seen by Provider: 12/23/16 19:23 - Related Data Home Medications Medication Instructions Recorded Confirmed Aspirin Enteric Coated [Aspirin EC] 81 mg PO DAILY 09/21/15 12/23/16 Atorvastatin [Lipitor] 10 mg PO DAILY 09/21/15 12/23/16 Calcium Acetate [Phos-LO] 1,334 mg PO TIDWM 09/21/15 12/23/16 Citalopram [CeleXA] 10 mg PO DAILY 09/21/15 12/23/16 Finasteride [Proscar] 5 mg PO DAILY 09/21/15 12/23/16 Multivitamin/Iron/Folic Acid 1 tab PO DAILY 09/21/15 12/23/16 [Centrum Complete Multivit Tab] Nitroglycerin 0.4 mg SL Q5M PRN 09/21/15 12/23/16 Carvedilol 3.125 mg PO BID 09/21/16 12/23/16 Docusate Sodium [Dok] 100 mg PO BID 09/21/16 12/23/16 Loratadine [Claritin] 10 mg PO DAILY 09/21/16 12/23/16 Ipratropium/Albuterol Neb [Duoneb] 3 ml IH Q6HR 10/21/16 12/23/16 CloNIDine HCl 0.1 mg PO TID PRN 12/04/16 12/23/16 Lidocaine/Prilocaine [Emla] 1 appl TP MOWEFR 12/15/16 12/23/16 Insulin ASPART [NovoLOG] 10 unit SQ TIDAC 12/23/16 12/23/16 Insulin Glargine,Hum.rec.anlog 10 unit SQ BID 12/23/16 12/23/16 [Lantus Solostar] Losartan [Cozaar] 50 mg PO DAILY 12/23/16 12/23/16 Previous Rx's Medication Instructions Recorded Clopidogrel Bisulfate [Plavix] 75 mg PO DAILY 30 Days 07/17/16 Isosorbide MONOnitrate (24 HR) 30 mg PO DAILY #20 tab.er.24h 10/21/16 [Imdur] OxyCODONE/APAP 5/325 [Percocet 1 each PO Q8HR PRN #20 tablet 12/18/16 5/325 MG] Allergies Allergy/AdvReac Type Severity Reaction Status Date / Time No Known Allergies Allergy Verified 12/15/16 08:24 Past Medical History - Past Medical History Medical history: Reports: CHF, coronary artery disease, DVT, diabetes, dialysis , hyperlipidemia, hypertension, renal disease, other Surgical history: Reports: herniorrhaphy Psychiatric history: Reports: no psych history - Social History Smoking Status: Never smoker Smokeless Tobacco Status: No Alcohol use: Reports: none Drug use: Reports: none Course - Reevaluation(s) Reevaluation #1: I placed 18-gauge right external jugular peripheral IV for difficulty in obtaining access due to patient being dialysis dependent. Patient tolerated the procedure well without complications. Time: 19:25 Medical Decision Making - Lab Data Result diagrams: 12/24/16 02:20 12/24/16 04:00 Attestation Statement - Attestation Attestation: I examined this patient and my medical decision-making was reviewed with the Resident Physician. I agree with the documented findings, disposition and treatment plan as described.
[2016-12-23] MEDS ORDERED: D5% in 0.9% NACL 1,000 ML IVC SCH (19:30)
--- NOTE | 2016-12-23 19:32 | Emergency Department Note ---
Disposition Clinical Impression: HCAP (healthcare-associated pneumonia), Elevated troponin, Hypoglycemia Disposition: Admitted As Inpatient Time of Disposition: 21:19 Altered Mental Status HPI - General Chief Complaint: ED Altered Mental Status Stated Complaint: Low BS Time Seen by Provider: 12/23/16 19:23 Source: EMS Mode of arrival: EMS Limitations: altered mental status Nursing Notes Reviewed: Yes Vital Signs Reviewed: Yes - History of Present Illness HPI Narrative: 89-year-old male past history of end-stage renal disease hemodialysis Wednesday presents to the ED via EMS for altered mental status. Patient is a prison resident. Supposedly concern for left sided facial droop. Last well-known one hour ago at 1800. On arrival to prison he was hypoglycemic and received glucagon and had resolution of droop with appropriate rise in blood sugar. Per EMS report patient had hemodialysis today and they were the same crew that transported him, he at that time was more alert and oriented than now. Here in the ED his accucheck 24. 2 amps of D50 ordered. Patient moves all 4 extremities without difficulty or focal deficit. He answers questions appropriately but is groggy and disoriented. He denies any complaints at this time. Patient is DNR-CCA - Related Data Home Medications Medication Instructions Recorded Confirmed Aspirin Enteric Coated [Aspirin EC] 81 mg PO DAILY 09/21/15 12/23/16 Atorvastatin [Lipitor] 10 mg PO DAILY 09/21/15 12/23/16 Calcium Acetate [Phos-LO] 1,334 mg PO TIDWM 09/21/15 12/23/16 Citalopram [CeleXA] 10 mg PO DAILY 09/21/15 12/23/16 Finasteride [Proscar] 5 mg PO DAILY 09/21/15 12/23/16 Multivitamin/Iron/Folic Acid 1 tab PO DAILY 09/21/15 12/23/16 [Centrum Complete Multivit Tab] Nitroglycerin 0.4 mg SL Q5M PRN 09/21/15 12/23/16 Carvedilol 3.125 mg PO BID 09/21/16 12/23/16 Docusate Sodium [Dok] 100 mg PO BID 09/21/16 12/23/16 Loratadine [Claritin] 10 mg PO DAILY 09/21/16 12/23/16 Ipratropium/Albuterol Neb [Duoneb] 3 ml IH Q6HR 10/21/16 12/23/16 CloNIDine HCl 0.1 mg PO TID PRN 12/04/16 12/23/16 Lidocaine/Prilocaine [Emla] 1 appl TP MOWEFR 12/15/16 12/23/16 Insulin ASPART [NovoLOG] 10 unit SQ TIDAC 12/23/16 12/23/16 Insulin Glargine,Hum.rec.anlog 10 unit SQ BID 12/23/16 12/23/16 [Lantus Solostar] Losartan [Cozaar] 50 mg PO DAILY 12/23/16 12/23/16 Previous Rx's Medication Instructions Recorded Clopidogrel Bisulfate [Plavix] 75 mg PO DAILY 30 Days 07/17/16 Isosorbide MONOnitrate (24 HR) 30 mg PO DAILY #20 tab.er.24h 10/21/16 [Imdur] OxyCODONE/APAP 5/325 [Percocet 1 each PO Q8HR PRN #20 tablet 12/18/16 5/325 MG] Allergies Allergy/AdvReac Type Severity Reaction Status Date / Time No Known Allergies Allergy Verified 12/15/16 08:24 Limitations: ROS unobtainable due to patients medical condition (altered mental status hypoglycemic) Past Medical History - Past Medical History Attestation: Yes The following information was validated with the patient. Source: unable to obtain, old records reviewed, nursing notes reviewed Medical history: Reports: CHF, coronary artery disease, DVT, diabetes, dialysis , hyperlipidemia, hypertension, renal disease, other Surgical history: Reports: herniorrhaphy Psychiatric history: Reports: no psych history - Social History Smoking Status: Never smoker Smokeless Tobacco Status: No Alcohol use: Reports: none Drug use: Reports: none Physical Exam - General Limitations: altered mental status General appearance: lethargic - Head Head exam: atraumatic, normocephalic, normal inspection - Eye Eye exam: Present: normal appearance, PERRL, EOMI - ENT ENT exam: normal exam, normal oropharynx, mucous membranes dry - Neck Neck exam: Present: normal inspection, full ROM, trachea midline - Chest Chest inspection: Present: normal inspection, symmetric chest wall rise. Absent : tenderness - Respiratory Respiratory exam: Present: other (coarse breath sounds bilaterally). Absent: respiratory distress, wheezes, accessory muscle use - Cardiovascular Cardiovascular exam: Present: regular rate, normal rhythm, normal heart sounds - Abdominal Exam Abdominal exam: Present: soft, Non-Tender, normal bowel sounds. Absent: tenderness, distention, guarding, rebound, rigidity - Extremities Exam Extremities exam: Present: full ROM, other (shunt on the right forearm). Absent : tenderness - Expanded Neurological Exam Patient oriented to: Present: person Cranial nerves: EOM function (II, III, IV, ): Normal, facial sensation (V): Normal, facial palsy (VII): Abnormal Left (flat nasolabial fold), tongue deviation (XII): Normal Course Course Narrative: 89-year-old male history of end-stage renal disease presents the ED for hypoglycemia and altered mental status. Per medical record review patient was seen evaluated for similar symptoms 1 week ago. His initial Accu check is 24. He got 2 large bore IVs, right IJ and left AC. Given 2 amps of D50. His sugar went up appropriately to 230. He remains disoriented and not fully back to baseline per family. Limited neurologic exam, he does not have any focal neuro deficit. Will hold off on CT and closely re-evaluate. Concern for infectious process with initiate septic workup, CXR, blood culture, urine, lactate, and basic labs. Will continue to monitor sugar levels and neuro checks. Discussion with family, they are adamant on not returning their father to the prison whether he gets admitted for medical etiology or placement. - Reevaluation(s) Reevaluation #1: Chest x-ray reveals increase basilar opacity in the right lung, consideration for possible aspiration. This is new from his prior CXR 12/15. Troponin is elevated and likely due to renal insufficiency, this is improved from priors. Urine was a straight cath and appears contaminated with many squamous and no bacteria. Cr is 2.75 and K is normal 3.7. Treat for HCAP with low dose Vanc with renal insufficiency, Zosyn, and Levaquin. On reassessment, patient is not alert and oriented to person place and time. He is joking and per family back to his baseline. Continues to deny any complaints. Will admit for HCAP. Time: 20:49 - Consultations Consultation #1: Spoke with on-call hospitalist dg Larson to admit for healthcare associated pneumonia, hypoglycemia, elevated troponin.. Requests D5NS 75 mL/hr drip and hourly accuchecks. Time: 21:20 Vital Signs Temperature 97.9 F 12/23/16 19:19 Pulse Rate 85 12/23/16 19:19 Respiratory Rate 16 12/23/16 19:19 Blood Pressure 116/72 12/23/16 19:19 O2 Sat by Pulse Oximetry 97 12/23/16 19:19 Temperature 97.8 F 12/23/16 22:28 Pulse Rate 81 12/23/16 22:28 Respiratory Rate 18 12/23/16 22:28 Blood Pressure 167/74 12/23/16 22:28 O2 Sat by Pulse Oximetry 100 12/23/16 22:28 Oxygen Delivery Oxygen Delivery Nasal Cannula Altered Mental Status - Medical Records Medical records reviewed: Yes I reviewed the patient's medical records. - Lab Data Lab results reviewed: Yes I reviewed the patient's lab results. Result diagrams: 12/23/16 19:58 12/23/16 19:58 Lab Results 12/23/16 12/23/16 12/23/16 Range/Units 19:47 19:58 19:58 WBC 9.1 (4.3-11.1) K/mcL RBC 2.80 L (4.19-5.50) M/mcL Hgb 8.9 L (12.9-16.9) g/dL Hct 28.0 L (37.5-50.1) % MCV 100.0 (83.0-100.0) fL MCH 31.8 (28.0-33.3) pg MCHC 31.8 (31.6-35.5) g/dL RDW 13.4 (11.5-14.5) % Plt Count 186 (140-400) K/mcL MPV 10.8 (9.4-12.4) fL Immature Gran % 0.3 (0-4) % Seg Neutrophils % 78.5 % Lymphocytes % 7.1 % Monocytes % 11.9 % Eosinophils % 1.9 % Basophils % 0.3 % Neutrophils # 7.1 (1.6-8.9) K/mcL Lymphocytes # 0.6 (0.6-4.6) K/mcL Monocytes # 1.1 (0.0-1.3) K/mcL Eosinophils # 0.2 (0.0-0.6) K/mcL Basophils # 0.0 (0.0-0.2) K/mcL VBG pH (7.32-7.42) pH Units VBG pCO2 (41-51) mmHg VBG pO2 (25-40) mmHg VBG HCO3 (21-27) mEq/L Sodium 137 (136-145) mEq/L Potassium 3.7 (3.5-4.5) mEq/L Chloride 101 (98-109) mEq/L Carbon Dioxide 25 (19-29) mEq/L BUN 22 D (8-26) mg/dL Creatinine 2.75 H D (0.72-1.25) mg/dL Est GFR ( Amer) 27 L (> 60) Est GFR (Non-Af Amer) 22 L (> 60) BUN/Creatinine Ratio 8 (6-26) Glucose 208 H (70-99) mg/dL POC Glucose 230 H (58-89) Calculated Osmolality 293 (280-300) Lactic Acid (0.5-2.2) mmol/L Calcium 8.4 L (8.6-10.8) mg/dL Total Bilirubin 0.7 (0.2-1.2) mg/dL Direct Bilirubin 0.2 (0.0-0.5) mg/dL Indirect Bilirubin 0.5 (0.0-1.2) mg/dL AST 19 (5-34) Units/L ALT 9 (0-55) Units/L Alkaline Phosphatase 84 (38-126) Units/L Troponin I (0-0.03) ng/mL Serum Total Protein 6.6 (6.0-8.3) g/dL Albumin 2.6 L (3.5-5.0) g/dL Globulin 4.0 H (2.4-3.5) g/dL Albumin/Globulin Ratio 0.7 L (1.1-2.2) Urine Color (Yellow) Urine Clarity (Clear) Urine pH (5.0-8.0) pH Units Ur Specific [place] (1.010-1.025) Urine Protein (Neg-Trace) mg/dL Urine Glucose (UA) (Normal) mg/dL Urine Ketones (Negative) mg/dL Urine Blood (Negative) Urine Nitrite (Negative) Urine Bilirubin (Negative) Urine Urobilinogen (Normal) mg/dL Ur Leukocyte Esterase (Negative) Urine Microscopic RBC (0-3) per hpf Urine Microscopic WBC (0-3) per hpf Ur Squamous Epith Cells (None-Few) per lpf Urine Bacteria (None-Few) per hpf Hyaline Casts (None-Few) per lpf Ur Culture Indicated? (NO) 12/23/16 12/23/16 12/23/16 Range/Units 19:58 19:58 19:58 WBC (4.3-11.1) K/mcL RBC (4.19-5.50) M/mcL Hgb (12.9-16.9) g/dL Hct (37.5-50.1) % MCV (83.0-100.0) fL MCH (28.0-33.3) pg MCHC (31.6-35.5) g/dL RDW (11.5-14.5) % Plt Count (140-400) K/mcL MPV (9.4-12.4) fL Immature Gran % (0-4) % Seg Neutrophils % % Lymphocytes % % Monocytes % % Eosinophils % % Basophils % % Neutrophils # (1.6-8.9) K/mcL Lymphocytes # (0.6-4.6) K/mcL Monocytes # (0.0-1.3) K/mcL Eosinophils # (0.0-0.6) K/mcL Basophils # (0.0-0.2) K/mcL VBG pH 7.40 (7.32-7.42) pH Units VBG pCO2 50 (41-51) mmHg VBG pO2 44 H (25-40) mmHg VBG HCO3 31.0 H (21-27) mEq/L Sodium (136-145) mEq/L Potassium (3.5-4.5) mEq/L Chloride (98-109) mEq/L Carbon Dioxide (19-29) mEq/L BUN (8-26) mg/dL Creatinine (0.72-1.25) mg/dL Est GFR ( Amer) (> 60) Est GFR (Non-Af Amer) (> 60) BUN/Creatinine Ratio (6-26) Glucose (70-99) mg/dL POC Glucose (58-89) Calculated Osmolality (280-300) Lactic Acid 1.5 (0.5-2.2) mmol/L Calcium (8.6-10.8) mg/dL Total Bilirubin (0.2-1.2) mg/dL Direct Bilirubin (0.0-0.5) mg/dL Indirect Bilirubin (0.0-1.2) mg/dL AST (5-34) Units/L ALT (0-55) Units/L Alkaline Phosphatase (38-126) Units/L Troponin I 0.13 H* (0-0.03) ng/mL Serum Total Protein (6.0-8.3) g/dL Albumin (3.5-5.0) g/dL Globulin (2.4-3.5) g/dL Albumin/Globulin Ratio (1.1-2.2) Urine Color (Yellow) Urine Clarity (Clear) Urine pH (5.0-8.0) pH Units Ur Specific [place] (1.010-1.025) Urine Protein (Neg-Trace) mg/dL Urine Glucose (UA) (Normal) mg/dL Urine Ketones (Negative) mg/dL Urine Blood (Negative) Urine Nitrite (Negative) Urine Bilirubin (Negative) Urine Urobilinogen (Normal) mg/dL Ur Leukocyte Esterase (Negative) Urine Microscopic RBC (0-3) per hpf Urine Microscopic WBC (0-3) per hpf Ur Squamous Epith Cells (None-Few) per lpf Urine Bacteria (None-Few) per hpf Hyaline Casts (None-Few) per lpf Ur Culture Indicated? (NO) 12/23/16 12/23/16 12/23/16 Range/Units 20:20 20:27 20:51 WBC (4.3-11.1) K/mcL RBC (4.19-5.50) M/mcL Hgb (12.9-16.9) g/dL Hct (37.5-50.1) % MCV (83.0-100.0) fL MCH (28.0-33.3) pg MCHC (31.6-35.5) g/dL RDW (11.5-14.5) % Plt Count (140-400) K/mcL MPV (9.4-12.4) fL Immature Gran % (0-4) % Seg Neutrophils % % Lymphocytes % % Monocytes % % Eosinophils % % Basophils % % Neutrophils # (1.6-8.9) K/mcL Lymphocytes # (0.6-4.6) K/mcL Monocytes # (0.0-1.3) K/mcL Eosinophils # (0.0-0.6) K/mcL Basophils # (0.0-0.2) K/mcL VBG pH (7.32-7.42) pH Units VBG pCO2 (41-51) mmHg VBG pO2 (25-40) mmHg VBG HCO3 (21-27) mEq/L Sodium (136-145) mEq/L Potassium (3.5-4.5) mEq/L Chloride (98-109) mEq/L Carbon Dioxide (19-29) mEq/L BUN (8-26) mg/dL Creatinine (0.72-1.25) mg/dL Est GFR ( Amer) (> 60) Est GFR (Non-Af Amer) (> 60) BUN/Creatinine Ratio (6-26) Glucose (70-99) mg/dL POC Glucose 231 H 217 H (58-89) Calculated Osmolality (280-300) Lactic Acid (0.5-2.2) mmol/L Calcium (8.6-10.8) mg/dL Total Bilirubin (0.2-1.2) mg/dL Direct Bilirubin (0.0-0.5) mg/dL Indirect Bilirubin (0.0-1.2) mg/dL AST (5-34) Units/L ALT (0-55) Units/L Alkaline Phosphatase (38-126) Units/L Troponin I (0-0.03) ng/mL Serum Total Protein (6.0-8.3) g/dL Albumin (3.5-5.0) g/dL Globulin (2.4-3.5) g/dL Albumin/Globulin Ratio (1.1-2.2) Urine Color Yellow (Yellow) Urine Clarity Clear (Clear) Urine pH 6.5 (5.0-8.0) pH Units Ur Specific [place] 1.017 (1.010-1.025) Urine Protein 100 H (Neg-Trace) mg/dL Urine Glucose (UA) 100 H (Normal) mg/dL Urine Ketones Negative (Negative) mg/dL Urine Blood Moderate H (Negative) Urine Nitrite Negative (Negative) Urine Bilirubin Negative (Negative) Urine Urobilinogen Normal (Normal) mg/dL Ur Leukocyte Esterase Moderate H (Negative) Urine Microscopic RBC 5-15 H (0-3) per hpf Urine Microscopic WBC 5-15 H (0-3) per hpf Ur Squamous Epith Cells Many H (None-Few) per lpf Urine Bacteria None Seen (None-Few) per hpf Hyaline Casts None Seen (None-Few) per lpf Ur Culture Indicated? YES A (NO) 12/23/16 Range/Units 21:21 WBC (4.3-11.1) K/mcL RBC (4.19-5.50) M/mcL Hgb (12.9-16.9) g/dL Hct (37.5-50.1) % MCV (83.0-100.0) fL MCH (28.0-33.3) pg MCHC (31.6-35.5) g/dL RDW (11.5-14.5) % Plt Count (140-400) K/mcL MPV (9.4-12.4) fL Immature Gran % (0-4) % Seg Neutrophils % % Lymphocytes % % Monocytes % % Eosinophils % % Basophils % % Neutrophils # (1.6-8.9) K/mcL Lymphocytes # (0.6-4.6) K/mcL Monocytes # (0.0-1.3) K/mcL Eosinophils # (0.0-0.6) K/mcL Basophils # (0.0-0.2) K/mcL VBG pH (7.32-7.42) pH Units VBG pCO2 (41-51) mmHg VBG pO2 (25-40) mmHg VBG HCO3 (21-27) mEq/L Sodium (136-145) mEq/L Potassium (3.5-4.5) mEq/L Chloride (98-109) mEq/L Carbon Dioxide (19-29) mEq/L BUN (8-26) mg/dL Creatinine (0.72-1.25) mg/dL Est GFR ( Amer) (> 60) Est GFR (Non-Af Amer) (> 60) BUN/Creatinine Ratio (6-26) Glucose (70-99) mg/dL POC Glucose 190 H (58-89) Calculated Osmolality (280-300) Lactic Acid (0.5-2.2) mmol/L Calcium (8.6-10.8) mg/dL Total Bilirubin (0.2-1.2) mg/dL Direct Bilirubin (0.0-0.5) mg/dL Indirect Bilirubin (0.0-1.2) mg/dL AST (5-34) Units/L ALT (0-55) Units/L Alkaline Phosphatase (38-126) Units/L Troponin I (0-0.03) ng/mL Serum Total Protein (6.0-8.3) g/dL Albumin (3.5-5.0) g/dL Globulin (2.4-3.5) g/dL Albumin/Globulin Ratio (1.1-2.2) Urine Color (Yellow) Urine Clarity (Clear) Urine pH (5.0-8.0) pH Units Ur Specific [place] (1.010-1.025) Urine Protein (Neg-Trace) mg/dL Urine Glucose (UA) (Normal) mg/dL Urine Ketones (Negative) mg/dL Urine Blood (Negative) Urine Nitrite (Negative) Urine Bilirubin (Negative) Urine Urobilinogen (Normal) mg/dL Ur Leukocyte Esterase (Negative) Urine Microscopic RBC (0-3) per hpf Urine Microscopic WBC (0-3) per hpf Ur Squamous Epith Cells (None-Few) per lpf Urine Bacteria (None-Few) per hpf Hyaline Casts (None-Few) per lpf Ur Culture Indicated? (NO) - Radiology Data Radiology results reviewed: Yes I reviewed the patient's radiology results. Chest X-Ray 12/23/16 19:24 IMPRESSION: 1. Interval worsening of right basilar airspace opacity in comparison with the prior study of 12/15/2014, representing either aspiration or pneumonia. 2. Mild left basilar atelectasis. 3. Stable mild cardiomegaly. D/ / 12/23/2016 20:33:23 Damian Geiger MD / [facility] Interpreting Provider: Damian Geiger MD - EKG Data EKG attestation: Yes I reviewed and interpreted this EKG. EKG results narrative: EKG performed 1918 shows normal sinus rhythm with an occasional PVC 81 bpm normal axis, < 1mm ST elevations in V1 and V2, no hyperacute T waves, Q waves in septal leads, intervals are within normal limits GA interval 178 QRS 103 QT QTC 401 438. Compared to old EKG performed 01/11/[address] morphology septal leads. No acute ischemic changes. Attestation Statement - Attestation Attestation: I examined this patient and my medical decision-making was reviewed with the Resident Physician. I agree with the documented findings, disposition and treatment plan as described except to the extent set forth below. HCAP, hypoglycemia. Mental status now back to normal. Abx given, admitted. Family adamant he will not go back to his current prison, hospitalist made aware, social work consulted.
[2016-12-23 20:09] LABS: Basophils % 0.3 %; Eosinophils # 0.2 K/mcL (0.0-0.6); Eosinophils % 1.9 %; Hemoglobin 8.9 g/dL (12.9-16.9); Immature Granulocytes % 0.3 % (0-4); Lymphocytes # 0.6 K/mcL (0.6-4.6); Lymphocytes % 7.1 %; Mean Corpuscular HGB Conc 31.8 g/dL (31.6-35.5); Mean Corpuscular Hemoglobin 31.8 pg (28.0-33.3); Mean Platelet Volume 10.8 fL (9.4-12.4); Monocytes # 1.1 K/mcL (0.0-1.3); Monocytes % 11.9 %; Neutrophils # 7.1 K/mcL (1.6-8.9); Platelet Count 186 K/mcL (140-400); Red Cell Distribution Width 13.4 % (11.5-14.5); Segmented Neutrophils % 78.5 %
[2016-12-23 20:10] LABS: VBG PH 7.4 pH Units (7.32-7.42)
[2016-12-23 20:40] LABS: Bilirubin,Urine Negative (Negative); Blood,Urine Moderate (Negative); Clarity,Urine Clear (Clear); Color,Urine Yellow (Yellow); Glucose,Urine (UA) 100 mg/dL (Normal); Ketones,Urine Negative (Negative); Leukocyte Esterase,Urine Moderate (Negative); Nitrite,Urine Negative (Negative); PH,Urine 6.5 pH Units (5.0-8.0); Protein,Urine 100 mg/dL (Neg-Trace); Specific Gravity,Urine 1.017 (1.010-1.025); Urobilinogen,Urine Normal (Normal)
[2016-12-23 20:41] LABS: Bacteria,Urine None Seen per hpf (None-Few); Hyaline Casts,Urine None Seen per lpf (None-Few); Squamous Epithelial Cell,Urine Many per lpf (None-Few)
[2016-12-23] MEDS ORDERED: Piperacillin/Tazobactam 4.5 GM in D5% in Water (Mini-Bag+) 100 ML IVPB ONE (20:56)
[2016-12-23] MEDS ORDERED: Levofloxacin 750 MG/150 ML 750 MG/150 ML BAG IVPB ONE (20:58)
[2016-12-23] MEDS ORDERED: Vancomycin 1,000 MG in D5% in Water 250 ML IVPB ONE (20:58)
[2016-12-23 21:01] LABS: Albumin 2.6 g/dL (3.5-5.0); Albumin/Globulin Ratio 0.7 (1.1-2.2); Bilirubin,Direct 0.2 mg/dL (0.0-0.5); Bilirubin,Indirect 0.5 mg/dL (0.0-1.2); Bilirubin,Total 0.7 mg/dL (0.2-1.2); Calcium 8.4 mg/dL (8.6-10.8); Potassium 3.7 mEq/L (3.5-4.5); Total Protein 6.6 g/dL (6.0-8.3)
[2016-12-23] MEDS: D5% in 0.9% NACL 1,000 ML IVC SCH (21:38)
[2016-12-23] MEDS ORDERED: Naloxone 0.4 MG/ML INJ IVP PRN (22:44)
[2016-12-23] MEDS ORDERED: cloNIDine HCl 0.1 MG TABLET PO PRN (22:52)
[2016-12-23] MEDS ORDERED: Nitroglycerin 0.4 MG TAB.SUBL SL PRN (22:52)
[2016-12-23] MEDS ORDERED: *HR* OxyCODONE/APAP 5/325 TABLET PO PRN (22:52)
--- NOTE | 2016-12-23 23:08 | Internal Med History&Physical ---
Date of Encounter: 12/23/16 Time of Encounter: 22:30 Assessment and Plan (1) Hypoglycemia Current visit: Yes Status: Acute 1 patient presented to the ER with blood sugar of 24 he is insulin-dependent and received his insulin today as well as underwent dialysis. Patient states he had not eaten in some time prior to the episode. We will continue to monitor patient's blood sugar every hour 1003 check blood sugars every 6 hrs 2. Some concern about aspiration patient's presently nothing by mouth we will continue with D5 0.9 and 75 3 patient has had several episodes of hypoglycemia. Patient's oral intake is unpredictable/ inadequate at times. Consider discontinuing basal insulin and relying upon sliding-scale insulin for coverage (2) Aspiration into lower respiratory tract Current visit: Yes Status: Acute 1 patient underwent modified barium swallow 10/19/2016 which revealed penetration and aspiration with thin consistency. She will receive either aspiration. Suspect patient's continuing aspirating. We will make patient nothing by mouth at this time-no leukocytosis patient is afebrile at this time- monitor for signs of developing pneumonia 2 consult speech for recommendations 3 continue IV Zosyn 4 monitor CBC Qualifiers: Encounter type: subsequent encounter Qualified Code(s): T17.800D - Unspecified foreign body in other parts of respiratory tract causing asphyxiation, subsequent encounter (3) Elevated troponin Current visit: Yes Status: Acute 1 troponin is 0.13 this appears to be chronic-during every admission patient's troponin was elevated. Presently denies any chest pain or shortness of breath. Continue to monitor cycle for 2 more troponins (4) DVT prophylaxis Current visit: No Status: Acute 1 heparin subcutaneous (5) ESRD (end stage renal disease) Current visit: No Status: Acute 1 A she receives dialysis Wednesday. We will continue with dialysis consult nephrology 2 avoid nephrotoxins and renally dose antibiotics 3 monitor intake and output (6) Diabetes mellitus Current visit: No Status: Chronic 1 presently nothing by mouth we will continue to monitor blood sugars every hour then every 6 hours until taking orally. Once blood sugars stable well treated with sliding scale insulin as needed-patient is receiving a basal insulin consider discontinuing basal and only using sliding scale at this time 2 diabetic diet when no longer nothing by mouth Qualifiers: Diabetes mellitus type: type 2 Diabetes mellitus complication status: with kidney complications Diabetes mellitus complication detail: with chronic kidney disease Diabetes mellitus senior care insulin use: with disassembler use Chronic kidney disease stage: on chronic dialysis Qualified Code(s): E11.22 - Type 2 diabetes mellitus with diabetic chronic kidney disease; N18.6 - End stage renal disease; Z79.4 - prosthetic dentist (current) use of insulin; Z99.2 - Dependence on renal dialysis Internal Medicine - H&P: HPI Chief complaint: AMS Admitted From: Emergency Dept Plans for Post Hospital Care: Transfer [facility] History of present illness: Mr. Dawson is a 89 year old male past medical history of end-stage renal disease hemodialysis Wednesday coronary artery disease diabetes hyperlipidemia CHF. Patient resides in the [facility]. He went to his scheduled dialysis today which was uneventful upon returning to the F patient began to experience left-sided facial droop as well as altered mental status. The patient's blood glucose did reveal hypoglycemia patient received glucagon and facial droop was resolved. Patient continued to be groggy EMS arrived and transported patient to the ER for evaluation. According to ER notes on arrival patient's blood sugar was 24 he was given 2 Amps of D50. The patient began to slowly recover moving all extremities answering questions appropriately very groggy blood sugar increase to 240. His vital signs were stable afebrile maintaining airway with SPO2 97%. CXR was obtained which revealed R basilar airspace representing either aspiration or pneumonia . He was admitted for further workup and evaluation. Presently patient is alert oriented and appropriate following commands. Does not appear to be any respiratory distress and denies any chest pain. He denies any fever chills N/V/D or abd pain On auscultation of lung sounds with scattered rhonchi throughout he does have a moist nonproductive cough. He is hemodynamically stable at this time, I reviewed this case with Dr Barnes who agrees with plan. Past Med Surg Social Fam HX - Past Medical History Medical history: CHF, coronary artery disease, DVT, diabetes, dialysis, hyperlipidemia, hypertension, renal disease, other Psychiatric history: no psych history - Past Surgical History Surgical History: herniorrhaphy - Social History Smoking Status: Never smoker Smokeless Tobacco Status: No Alcohol use: none Drug use: none - Family History Mother Living Status: Father Living Status: Internal Medicine - H&P: Meds Aspirin Enteric Coated [Aspirin EC] 81 mg PO DAILY 09/21/15 [History] Atorvastatin [Lipitor] 10 mg PO DAILY 09/21/15 [History] Calcium Acetate [Phos-LO] 1,334 mg PO TIDWM 09/21/15 [History] Citalopram [CeleXA] 10 mg PO DAILY 09/21/15 [History] Finasteride [Proscar] 5 mg PO DAILY 09/21/15 [History] Multivitamin/Iron/Folic Acid [Centrum Complete Multivit Tab] 1 tab PO DAILY [History] Nitroglycerin 0.4 mg SL Q5M PRN 09/21/15 [History] Clopidogrel Bisulfate [Plavix] 75 mg PO DAILY 30 Days 07/17/16 [Rx] Carvedilol 3.125 mg PO BID 09/21/16 [History] Docusate Sodium [Dok] 100 mg PO BID 09/21/16 [History] Loratadine [Claritin] 10 mg PO DAILY 09/21/16 [History] Ipratropium/Albuterol Neb [Duoneb] 3 ml IH Q6HR 10/21/16 [History] Isosorbide MONOnitrate (24 HR) [Imdur] 30 mg PO DAILY #20 tab.er.24h 10/21/16 [ Rx] CloNIDine HCl 0.1 mg PO TID PRN 12/04/16 [History] Lidocaine/Prilocaine [Emla] 1 appl TP MOWEFR 12/15/16 [History] OxyCODONE/APAP 5/325 [Percocet 5/325 MG] 1 each PO Q8HR PRN #20 tablet 12/18/16 [Rx] Insulin ASPART [NovoLOG] 10 unit SQ TIDAC 12/23/16 [History] Insulin Glargine,Hum.rec.anlog [Lantus Solostar] 10 unit SQ BID 12/23/16 [ History] Losartan [Cozaar] 50 mg PO DAILY 12/23/16 [History] Allergies No Known Allergies Allergy (Verified 12/15/16 08:24) All Systems PM: A 10-system review of systems was performed and is negative for pertinent findings except as documented above in the HPI. - Constitutional Constitutional: no chills, no fever(s), no night sweats - Cardiovascular Cardiovascular ROS IM: no chest pain, no diaphoresis, no dyspnea, no lightheadedness, no palpitations, no syncope - Respiratory Respiratory: cough - Gastrointestinal Gastrointestinal: no abdominal pain, no diarrhea, no hematemesis, no hematochezia, no melena, no nausea, no vomiting - Neurological Neurological ROS: confusion - Constitutional Vitals: Temp Pulse Resp BP Pulse Ox 97.8 F 81 18 167/74 100 12/23/16 22:28 12/23/16 22:28 12/23/16 22:28 12/23/16 22:28 12/23/16 22:28 General appearance: Present: A&O X 3, answers questions appropriately - Head Head exam: Present: atraumatic, normocephalic - Eye Eye exam: Present: PERRL, conjuntiva pink, sclera anicteric Pupils: Present: PERRL - Respiratory Respiratory exam: Present: rhonchi. Absent: accessory muscle use, rales, wheezes - Cardiovascular Cardiovascular exam: Present: RRR, +S1, +S2. Absent: diastolic murmur, gallop, rubs, systolic murmur - GI/Abdominal GI/Abdominal exam: Present: normal bowel sounds, soft, no peritoneal signs. Absent: distended, tenderness - Extremities Exam Extremities exam: Present: warm, radial pulses palpable and symetrical. Absent : calf tenderness, cyanotic, pedal edema - Neurological Exam Neurological exam: Present: alert, oriented X3 - Skin Skin exam: Present: dry, intact Internal Med - H&P Results - Labs CBC & Chem 7: 12/23/16 19:58 12/23/16 19:58 - EKG Data EKG shows normal: sinus rhythm - EKG Data Prior EKG available for review: yes When compared to previous EKG: there is no significant change EKG comments: 12/23/16 23:32 I reviewed EKG with Dr Orozco . - Diagnostic Studies Chest x-ray Additional comments: Per radiology read interval worsening of right basilar airspace Johny Souza comparison with prior study of 12/15/2016 representing either aspiration or pneumonia mild left basilar atelectasis stable mild cardiomegaly
[2016-12-24] MEDS: Piperacillin/Tazobactam 3.375 GM in D5% in Water (Mini-Bag+) 100 ML IVPB SCH ×2 (00:17→12:55)
[2016-12-24 03:13] LABS: Basophils % 0.5 %; Eosinophils # 0.1 K/mcL (0.0-0.6); Eosinophils % 1.5 %; Hematocrit 28.1 % (37.5-50.1); Hemoglobin 8.9 g/dL (12.9-16.9); Immature Granulocytes % 2.6 % (0-4); Immature Platelets 3.4 % (1.1-6.1); Lymphocytes % 10.9 %; Mean Corpuscular HGB Conc 31.7 g/dL (31.6-35.5); Mean Corpuscular Hemoglobin 31.6 pg (28.0-33.3); Mean Corpuscular Volume 99.6 fL (83.0-100.0); Mean Platelet Volume 10.7 fL (9.4-12.4); Monocytes # 1.5 K/mcL (0.0-1.3); Monocytes % 17.4 %; Neutrophils # 5.8 K/mcL (1.6-8.9); Platelet Count 179 K/mcL (140-400); Red Blood Count 2.82 M/mcL (4.19-5.50); Red Cell Distribution Width 13.3 % (11.5-14.5); Segmented Neutrophils % 67.1 %
[2016-12-24 03:34] LABS: Calcium 8.5 mg/dL (8.6-10.8); Potassium 4.5 mEq/L (3.5-4.5)
[2016-12-24] MEDS ORDERED: Piperacillin/Tazobactam 3.375 GM in D5% in Water (Mini-Bag+) 100 ML IVPB SCH (04:00)
[2016-12-24] MEDS: Ipratropium/Albuterol Neb 3 ML IH SCH ×4 (05:34→23:45)
[2016-12-24] MEDS ORDERED: Vancomycin (wt based) 1,000 MG VIAL IVPB SCH (09:00)
[2016-12-24] MEDS: *HR* Heparin 5,000 UNIT/ML VIAL SQ SCH ×2 (09:10→18:00)
[2016-12-24] MEDS: Finasteride 5 MG TABLET PO SCH (11:10)
[2016-12-24] MEDS: Isosorbide MONOnitrate (24 HR) 30 MG TAB.ER.24H PO SCH (11:10)
[2016-12-24] MEDS: Loratadine 10 MG TABLET PO SCH (11:10)
[2016-12-24] MEDS: Aspirin Enteric Coated 81 MG Tablet PO SCH (11:10)
[2016-12-24] MEDS: D5% in 0.9% NACL 1,000 ML IVC SCH (11:10)
[2016-12-24] MEDS: Multivit/Ca/Min/Fe/FA 1 TAB TABLET PO SCH (11:10)
[2016-12-24] MEDS ORDERED: D5% in 0.9% NACL 1,000 ML IVC SCH (12:37)
[2016-12-24] MEDS ORDERED: D5% in Water 1,000 ML IV PRN (12:56)
[2016-12-24] MEDS ORDERED: Dextrose Gel 15 GM PO PRN ×2 (12:56)
[2016-12-24] MEDS ORDERED: *HR* Dextrose 50 % in Water (Syg) 50 ML SYRINGE IVP PRN (12:56)
[2016-12-24] MEDS: Insulin LISPRO 300 UNITS/3 ML VIAL SQ SCH ×2 (14:14→16:21)
--- NOTE | 2016-12-24 17:13 | Nephrology Consult Note ---
Date of Encounter: 12/24/16 Time of Encounter: 17:11 Assessment and Plan (1) Swelling of right hand Current Visit: Yes Status: Acute Unclear etiology. Will consult OT. Order duplex of right upper extremity. He may need evaluation of the right subclavian if unable to locate a source of swelling. (2) Hypoglycemia Current Visit: Yes Status: Acute Secondary to decrease po intake. Patient may need assistance with food and adjustment of diabetic meds. Per primary team. (3) ESRD (end stage renal disease) Current Visit: No Status: Acute HD MWF Adjust medication for renal function. Renal diet. (4) Anemia Current Visit: Yes Status: Acute Aranesp Monitor for bleeding and transfuse as needed. Qualifiers: Qualified Code(s): D64.9 - Anemia, unspecified History of Present Illness - Reason for Consult Consult date: 12/24/16 end stage renal disease - Chief Complaint ESRD - History of Present Illness Mr. Dawson is well known to [facility]. He reports he has been having difficulty with his right hand swelling to the point he can't feed himself. He denies other problems. No chest pain or shortness of breath. Past Med Surg Social Fam HX - Past Medical History Medical history: CHF, coronary artery disease, DVT, diabetes, dialysis, hyperlipidemia, hypertension, renal disease, other Psychiatric history: no psych history - Past Surgical History Surgical History: herniorrhaphy - Social History Smoking Status: Never smoker Smokeless Tobacco Status: No Alcohol use: none Drug use: none - Family History Mother Living Status: Father Living Status: Medications and Allergies Aspirin Enteric Coated [Aspirin EC] 81 mg PO DAILY 09/21/15 [History] Atorvastatin [Lipitor] 10 mg PO DAILY 09/21/15 [History] Calcium Acetate [Phos-LO] 1,334 mg PO TIDWM 09/21/15 [History] Citalopram [CeleXA] 10 mg PO DAILY 09/21/15 [History] Finasteride [Proscar] 5 mg PO DAILY 09/21/15 [History] Multivitamin/Iron/Folic Acid [Centrum Complete Multivit Tab] 1 tab PO DAILY [History] Nitroglycerin 0.4 mg SL Q5M PRN 09/21/15 [History] Clopidogrel Bisulfate [Plavix] 75 mg PO DAILY 30 Days 07/17/16 [Rx] Carvedilol 3.125 mg PO BID 09/21/16 [History] Docusate Sodium [Dok] 100 mg PO BID 09/21/16 [History] Loratadine [Claritin] 10 mg PO DAILY 09/21/16 [History] Ipratropium/Albuterol Neb [Duoneb] 3 ml IH Q6HR 10/21/16 [History] Isosorbide MONOnitrate (24 HR) [Imdur] 30 mg PO DAILY #20 tab.er.24h 10/21/16 [ Rx] CloNIDine HCl 0.1 mg PO TID PRN 12/04/16 [History] Lidocaine/Prilocaine [Emla] 1 appl TP MOWEFR 12/15/16 [History] OxyCODONE/APAP 5/325 [Percocet 5/325 MG] 1 each PO Q8HR PRN #20 tablet 12/18/16 [Rx] Insulin ASPART [NovoLOG] 10 unit SQ TIDAC 12/23/16 [History] Insulin Glargine,Hum.rec.anlog [Lantus Solostar] 10 unit SQ BID 12/23/16 [ History] Losartan [Cozaar] 50 mg PO DAILY 12/23/16 [History] Allergies No Known Allergies Allergy (Verified 12/15/16 08:24) Review of Systems All Systems: reviewed and no additional remarkable complaints except as stated ( as documented in the hpi.) Exam - Vital Signs Vital signs: Initial Vital Signs Temp Pulse Resp BP Pulse Ox 97.9 F 85 16 116/72 97 12/23/16 19:19 12/23/16 19:19 12/23/16 19:19 12/23/16 19:19 12/23/16 19:19 Vital Signs - Last 8 Hours Temp Pulse Resp BP Pulse Ox 12/24/16 16:45 98.4 F 81 16 155/73 97 12/24/16 16:41 16 98 12/24/16 12:45 98.6 F 93 18 132/68 95 12/24/16 09:30 95 Intake and Output 12/24/16 12/24/16 12/24/16 07:59 15:59 23:59 Intake Total 100 / 100 1000 / 1000 Output Total 0 / 0 0 / 0 Balance 100 / 100 1000 / 1000 0 / 0 Intake: IV Fluids 100 / 100 1000 / 1000 D5% And 0.9% Nacl 1000 Ml 1000 / 1000 1,000 ML @ 75 mls/hr IVC .[id number] [facility] Rx#: [id number] Zosyn 3.375 GM In 100 / 100 Dextrose 5% (Minibag+) 100 ML 100 ML @ 25 mls/hr IVPB Q12H [facility] Rx#: [id number] Output: Urine 0 / 0 0 / 0 Other: Stool Size Small Stool Characteristics [place] Stool Color Hai Colored # Bowel Movements 1 Weight 62.5 kg Blood Glucose* 199 174 176 Patient Weight 12/24/16 23:59 Weight 62.5 kg - General Appearance General appearance: well-developed, well-nourished EENT: ATNC Neck: supple Respiratory: clear Cardiology: no edema, regular rate, regular rhythm Gastrointestinal: normoactive bowel sounds, no tenderness Integumentary: warm and dry Neurologic: alert and oriented x3 Musculoskeletal: no cyanosis Psychiatric: mood/affect appropriate Results - Lab Results 12/24/16 02:20 12/24/16 04:00 Most recent lab results Calcium 8.5 mg/dL (8.6-10.8) L 12/24/16 04:00 Consult Discharge Plan - Plan Referrals: Dao Klein MD [Non-Partnered Physician] - (Needs called) Samuel Ruiz MD [Partnered Physician] -
[2016-12-24] MEDS: Calcium Acetate 667 MG CAPSULE PO SCH (17:59)
--- NOTE | 2016-12-24 18:10 | Internal Med Progress Note ---
Date of Encounter: 12/24/16 Time of Encounter: 12:45 - Assessment and plan (1) Hypoglycemia Current Visit: No Status: Acute Assessment and plan: Multifactorial secondary to poor oral intake in the setting of long acting insulin and aspiration pneumonia. Patient missed his supper and later on he was found lethargic. Accu-Chek was 24. Patient was started on D5 NS at 75 ml/hr and next Accu-Cheks have been in the 100-200 range. Speech therapy assisted the patient and recommended neck thick liquids and a barium swallow study. Decrease D5 NS to 30 mL per hour until patient eats a full meal. Then stop completely D5 normal saline IV. (2) Aspiration into lower respiratory tract Current Visit: Yes Status: Acute Assessment and plan: CXR, with interval worsening of right basilar airspace opacity concerning for aspiration / pneumonia. Continue IV Zosyn. Speech therapy following. Qualifiers: Encounter type: subsequent encounter Qualified Code(s): T17.800D - Unspecified foreign body in other parts of respiratory tract causing asphyxiation, subsequent encounter (3) Diabetes mellitus Current Visit: No Status: Chronic Assessment and plan: Episode of hypoglycemia. Continue insulin sliding scale. Qualifiers: Diabetes mellitus type: type 2 Diabetes mellitus complication status: with kidney complications Diabetes mellitus complication detail: with chronic kidney disease Diabetes mellitus usp insulin use: with oil heaterman use Chronic kidney disease stage: on chronic dialysis Qualified Code(s): E11.22 - Type 2 diabetes mellitus with diabetic chronic kidney disease; N18.6 - End stage renal disease; Z79.4 - correction (current) use of insulin; Z99.2 - Dependence on renal dialysis (4) ESRD (end stage renal disease) Current Visit: No Status: Chronic Assessment and plan: ESRD on HD. 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 Compensated. Continue home meds. (6) Elevated troponin Current Visit: Yes Status: Acute Assessment and plan: Secondary to aspiration pneumonia and episode of hypoglycemia. Supply demand mismatch (7) Hypertension Current Visit: No Status: Chronic Assessment and plan: Continue home meds. Qualifiers: Hypertension type: essential hypertension Qualified Code(s): I10 - Essential (primary) hypertension - Subjective Interval history: Patient has no complaints, he is eating his lunch but the food is still on his mouth and he is not swallowing it. - Constitutional Vitals: Temp Pulse Resp BP Pulse Ox 98.4 F 81 16 155/73 97 12/24/16 16:45 12/24/16 16:45 12/24/16 16:45 12/24/16 16:45 12/24/16 16:45 General appearance: Present: cooperative, A&O X 3, pleasant, no acute distress, answers questions appropriately - Eye Eye exam: Present: PERRL, sclera anicteric - Neck Neck exam general surgery: Present: supple, trachea midline. Absent: lymphadenopathy - Respiratory Respiratory exam: Present: CTAB. Absent: wheezes - Cardiovascular Cardiovascular exam: Present: RRR - GI/Abdominal GI/Abdominal exam: Present: distended, normal bowel sounds. Absent: tenderness - Extremities Exam Extremities exam: Absent: pedal edema - Back Exam Back exam: Absent: CVA tenderness (L), CVA tenderness (R) - Neurological Exam Neurological exam: Present: alert, oriented X3. Absent: facial droop, speech deficit - Skin Skin exam: Absent: rash Internal Medicine: Result - Labs CBC & Chem 7: 12/24/16 02:20 12/24/16 04:00 Labs: Short CBC 12/24/16 Range/Units 02:20 WBC 8.7 (4.3-11.1) K/mcL Hgb 8.9 L (12.9-16.9) g/dL Hct 28.1 L (37.5-50.1) % Plt Count 179 (140-400) K/mcL Neutrophils # 5.8 (1.6-8.9) K/mcL BMP 12/24/16 04:00 Sodium 136 Potassium 4.5 Chloride 102 Carbon Dioxide 19 BUN 26 Creatinine 3.19 H Glucose 229 H Calcium 8.5 L Cardiac Enzymes 12/24/16 12/24/16 Range/Units 02:00 08:06 Troponin I 0.06 H* 0.14 H* (0-0.03) ng/mL - Impressions Impressions Videofluoroscopic Swallow 12/24/16 09:38 IMPRESSION: Penetration of nectar thick liquid via straw and thin barium from a cup. No evidence of aspiration Please see separate speech pathology report for full discussion of findings and recommendations. D/ / Damion Quezada MD / Damion Quezada MD Interpreting Provider: Damion Quezada MD Consult Discharge Plan - Plan Referrals: Dao Klein MD [Non-Partnered Physician] - (Needs called) Samuel Ruiz MD [Partnered Physician] -
--- NOTE | 2016-12-24 18:51 | Electrocardiograph Report ---
[address] [place], [place] [address] Test Date: 2016-12-23 Pat Name: Jalil Dawson Department: 104 Room: 2A Gender: M Retail General Manager: : [id number] Requested By: Matthew Bautista Order Number: [id number] Reading MD: Perry Liang MD Measurements Intervals [place] Rate: 81 P: 40 WA: 178 QRS: 70 QRSD: 103 T: 77 QT: 401 QTc: 438 Interpretive Statements SINUS RHYTHM WITH OCCASIONAL VENTRICULAR PREMATURE COMPLEXES AND PACS SEPTAL MYOCARDIAL INFARCTION, OF INDETERMINATE AGE Electronically Signed On 12-24-2016 18:49:25 EST by Perry Liang MD
[2016-12-24] MEDS ORDERED: Insulin LISPRO 300 UNITS/3 ML VIAL SQ SCH (21:00)
[2016-12-25] MEDS: Piperacillin/Tazobactam 3.375 GM in D5% in Water (Mini-Bag+) 100 ML IVPB SCH ×2 (00:42→14:11)
[2016-12-25] MEDS: Ipratropium/Albuterol Neb 3 ML IH SCH ×4 (04:59→22:16)
[2016-12-25 06:37] LABS: Basophils % 0.5 %; Eosinophils # 0.3 K/mcL (0.0-0.6); Eosinophils % 3.7 %; Hematocrit 30.3 % (37.5-50.1); Hemoglobin 9.5 g/dL (12.9-16.9); Immature Granulocytes % 0.4 % (0-4); Lymphocytes # 1.4 K/mcL (0.6-4.6); Lymphocytes % 16.9 %; Mean Corpuscular HGB Conc 31.4 g/dL (31.6-35.5); Mean Corpuscular Hemoglobin 31.1 pg (28.0-33.3); Mean Corpuscular Volume 99.3 fL (83.0-100.0); Mean Platelet Volume 10.6 fL (9.4-12.4); Monocytes # 1.7 K/mcL (0.0-1.3); Monocytes % 20.5 %; Neutrophils # 4.9 K/mcL (1.6-8.9); Platelet Count 191 K/mcL (140-400); Red Blood Count 3.05 M/mcL (4.19-5.50); Red Cell Distribution Width 13.6 % (11.5-14.5)
[2016-12-25] MEDS: Loratadine 10 MG TABLET PO SCH (06:51)
[2016-12-25] MEDS: Multivit/Ca/Min/Fe/FA 1 TAB TABLET PO SCH (06:51)
[2016-12-25] MEDS: Aspirin Enteric Coated 81 MG Tablet PO SCH (06:52)
[2016-12-25] MEDS: Finasteride 5 MG TABLET PO SCH (06:52)
[2016-12-25 06:54] LABS: Magnesium 1.6 mg/dL (1.6-2.6); Potassium 4.3 mEq/L (3.5-4.5)
[2016-12-25 07:23] LABS: Platelet Estimate Normal (Normal)
[2016-12-25] MEDS ORDERED: 0.9 % Sodium Chloride 250 ML IV PRN (08:27)
--- NOTE | 2016-12-25 08:32 | Nephrology Progress Note ---
Date of Encounter: 12/25/16 Time of Encounter: 09:45 - Assessment and Plan (1) ESRD (end stage renal disease) Current Visit: No Status: Chronic HD today for clearance Chronic anemia: goal Hgb 10-11, agree with weekly dosing of Aranesp while hospitalized (he typically has a shorter acting YOUNG at [facility], which we'll use EPO after discharge) HTN: okay for losartan, but caution if hyperkalemic and unlikely to be effective. Will defer to his primary fiscal services director in the outpt setting Next HD after today would be Wednesday. I will be available this weekend, if needed. Hypoglycemia and chronic aspiration as per primary. Appreciate hospitalists. Thank you. (2) Hypertension Current Visit: No Status: Chronic Controlled with dialysis Qualifiers: Hypertension type: essential hypertension Qualified Code(s): I10 - Essential (primary) hypertension (3) Anemia Current Visit: Yes Status: Chronic Goal Hgb 10-11 Qualifiers: Anemia type: other cause Other causes of anemia: chronic disease, kidney Qualified Code(s): N18.9 - Chronic kidney disease, unspecified; D63.1 - Anemia in chronic kidney disease (4) Hypoglycemia Current Visit: Yes Status: Acute As per primary. Subjective Principal diagnosis: ESRD Interval history: Pt was seen/examined while on HD. He did not affirm N/V/D, cramping or any major complaints. Objective - Vital Signs Vital signs: Vital Signs Temp Pulse Resp BP Pulse Ox 12/25/16 06:45 99.2 F 82 14 175/79 96 12/25/16 04:59 18 96 12/25/16 04:25 98.4 F 80 20 147/54 98 12/24/16 23:47 98.3 F 74 20 166/78 95 12/24/16 20:30 98.0 F 80 20 150/70 98 12/24/16 16:45 98.4 F 81 16 155/73 97 12/24/16 16:41 16 98 12/24/16 12:45 98.6 F 93 18 132/68 95 12/24/16 09:30 95 Intake and Output 12/24/16 12/25/16 12/25/16 23:59 07:59 15:59 Intake Total 100 / 100 Output Total 0 / 0 Balance 100 / 100 Intake: IV Fluids 100 / 100 Zosyn 3.375 GM In 100 / 100 Dextrose 5% (Minibag+) 100 ML 100 ML @ 25 mls/hr IVPB Q12H [facility] Rx#: [id number] Output: Urine 0 / 0 Other: Stool Size Large Stool Consistency soft Stool Color Yellow # Bowel Movement Diapers 1 Weight 63.3 kg Blood Glucose* 269 249 Patient Weight 12/25/16 23:59 Weight 63.3 kg - General Appearance General appearance: Present: well-developed, chronically ill, fatigue, frail EENT: Present: ATNC, PERRL, mucous membranes moist Neck: Present: supple Respiratory: Present: clear Cardiology: Present: no edema, regular rate, normal S1, normal S2 Dialysis Vascular Access: Arteriovenous Fistula thrill: Yes bruit: Yes Gastrointestinal: Present: normoactive bowel sounds, no tenderness, no guarding Integumentary: Present: no rash, warm and dry Neurologic: Present: no asterixis, alert and oriented x3 Musculoskeletal: Present: no deformities, no erythema, no cyanosis, no clubbing Psychiatric: Present: mood/affect appropriate, cooperative - Lab 12/26/16 06:36 12/27/16 06:43 Most recent lab results Calcium 9.0 mg/dL (8.6-10.8) 12/25/16 06:02 Magnesium 1.6 mg/dL (1.6-2.6) 12/25/16 06:02 Consult Discharge Plan - Plan Instructions: Diabetic Hypoglycemia (DC), Chronic Hypertension (DC), Pneumonia (DC) Referrals: Dao Klein MD [Primary Care Provider] - (patient will follow up with f pcp) Sameul Ruiz MD [Partnered Physician] - Prescriptions: OxyCODONE/APAP 5/325 [Percocet 5/325 MG] 1 each PO Q8HR PRN #20 tablet PRN Reason: Pain Amoxicillin/Clavulanate [Augmentin] 875 mg PO BIDWM 3 Days
[2016-12-25] MEDS: *HR* Heparin 5,000 UNIT/ML VIAL SQ SCH ×2 (09:16→17:50)
[2016-12-25] MEDS: Insulin LISPRO 300 UNITS/3 ML VIAL SQ SCH ×3 (09:16→17:01)
[2016-12-25] MEDS: Calcium Acetate 667 MG CAPSULE PO SCH ×3 (09:16→17:49)
[2016-12-25] MEDS ORDERED: Insulin DETEMIR 100 UNIT/ML X5UNITS SQ SCH (12:00)
[2016-12-25] MEDS: Isosorbide MONOnitrate (24 HR) 30 MG TAB.ER.24H PO SCH (14:11)
--- NOTE | 2016-12-25 17:47 | Internal Med Progress Note ---
Date of Encounter: 12/25/16 Time of Encounter: 14:00 - Assessment and plan (1) Hypoglycemia Current Visit: No Status: Acute Assessment and plan: Multifactorial secondary to poor oral intake in the setting of long acting insulin and aspiration pneumonia. Patient missed his supper and later on he was found lethargic. Accu-Chek was 24 on admission, patient was started on D5 NS at 75 ml/hr and next Accu-Cheks have been in the 100-200 range. Speech therapy is following. Off D5 fluids. started on levemir 7 units daily. hold sliding scale insulin if patient is not eating well. (2) Aspiration into lower respiratory tract Current Visit: Yes Status: Acute Assessment and plan: CXR, with interval worsening of right basilar airspace opacity concerning for aspiration / pneumonia. Continue IV Zosyn, may switch to augmentin tomorrow if cultures are negative. Speech therapy is following. Qualifiers: Encounter type: subsequent encounter Qualified Code(s): T17.800D - Unspecified foreign body in other parts of respiratory tract causing asphyxiation, subsequent encounter (3) Diabetes mellitus Current Visit: No Status: Chronic Assessment and plan: Episode of hypoglycemia. Continue insulin sliding scale. diabetic diet. Qualifiers: Diabetes mellitus type: type 2 Diabetes mellitus complication status: with kidney complications Diabetes mellitus complication detail: with chronic kidney disease Diabetes mellitus custodial insulin use: with superintendent terminal use Chronic kidney disease stage: on chronic dialysis Qualified Code(s): E11.22 - Type 2 diabetes mellitus with diabetic chronic kidney disease; N18.6 - End stage renal disease; Z79.4 - superintendent terminal (current) use of insulin; Z99.2 - Dependence on renal dialysis (4) ESRD (end stage renal disease) Current Visit: No Status: Chronic Assessment and plan: ESRD on HD. 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 Compensated. Continue home meds. (6) Elevated troponin Current Visit: Yes Status: Acute Assessment and plan: Secondary to aspiration pneumonia and episode of hypoglycemia. Supply demand mismatch (7) Hypertension Current Visit: No Status: Chronic Assessment and plan: Continue home meds. Qualifiers: Hypertension type: essential hypertension Qualified Code(s): I10 - Essential (primary) hypertension - Subjective Interval history: Patient has no complaints, he is not hungry today. He ate a few bites of ice cream. - Constitutional Vitals: Temp Pulse Resp BP Pulse Ox 99.0 F 86 16 147/70 93 L 12/25/16 17:20 12/25/16 17:20 12/25/16 17:20 12/25/16 17:20 12/25/16 17:20 General appearance: Present: cooperative, A&O X 3, pleasant, no acute distress, answers questions appropriately - Eye Eye exam: Present: PERRL, sclera anicteric - Neck Neck exam general surgery: Present: supple, trachea midline. Absent: lymphadenopathy - Respiratory Respiratory exam: Present: rhonchi - Cardiovascular Cardiovascular exam: Absent: RRR - GI/Abdominal GI/Abdominal exam: Present: normal bowel sounds, soft. Absent: distended, tenderness - Back Exam Back exam: Absent: CVA tenderness (L), CVA tenderness (R) - Neurological Exam Neurological exam: Present: alert, oriented X3. Absent: facial droop, speech deficit - Skin Skin exam: Absent: rash Internal Medicine: Result - Labs CBC & Chem 7: 12/25/16 06:02 12/25/16 06:02 Labs: Short CBC 12/25/16 Range/Units 06:02 WBC 8.5 (4.3-11.1) K/mcL Hgb 9.5 L (12.9-16.9) g/dL Hct 30.3 L (37.5-50.1) % Plt Count 191 (140-400) K/mcL Neutrophils # 4.9 (1.6-8.9) K/mcL BMP 12/25/16 06:02 Sodium 136 Potassium 4.3 Chloride 100 Carbon Dioxide 22 BUN 46 H D Creatinine 4.92 H D Glucose 259 H Calcium 9.0 Cardiac Enzymes 12/24/16 Range/Units 17:41 Troponin I 0.13 H* (0-0.03) ng/mL Consult Discharge Plan - Plan Referrals: Dao Klein MD [Non-Partnered Physician] - (patient will follow up with f pcp) Samuel Ruiz MD [Partnered Physician] -
--- NOTE | 2016-12-25 18:51 | Venous Imaging Report ---
UE Venous Duplex Patient Name:Jalil Dawson Order Number:[id number] Procedure Date:12/25/2016 Date:1925ge:89 yrs Gender:Male Location:[facility] Room #: [id number] Frame Maker:Mike Bill RN Referring MD:Tucker Pal MD nut packer:None Reading MD:Lev Yeager MD , FACS Primary Indications:Swelling of limb Secondary Indications: Risk Factors Yes/No Anticoagulants Yes Previous Vascular Surgery Yes Smoker Previous No Hx of DVT No Hx of Chemotherapy No Impressions: Right upper extremity: normal superficial and deep exam. Left upper extremity: normal contralateral exam. Recommendations: Test completed on 12/25/2016 at 8:30:00 am. Findings Venous Duplex Results: Right: Venous imaging of the upper extremity reveals full patency and normal vessel compressibility of the right jugular, right subclavian, right axillary, right brachial, right cephalic upper arm, right cephalic forearm, right basilic upper arm, right basilic forearm, right radial and right ulnar. Doppler signals in the evaluated veins were normal. Patient is noted to have Hemodialysis access in lower arm. Left: Venous imaging of the upper extremity reveals full patency and normal vessel compressibility of the left subclavian. Doppler signals in the evaluated veins were normal. Prior Study: No prior study available for comparison. Upper Extremity Venous Duplex Side Vein Compress Spontaneous Flow Augment Right Jugular Normal Yes Continuous Yes Right Subclavian Normal Yes Continuous Yes Right Axillary Normal Yes Continuous Yes Right Brachial Normal Yes Continuous Yes Right Cephalic Upper Arm Normal Yes Continuous Yes Right Cephalic Forearm Normal Yes Continuous Yes Right Basilic Upper Arm Normal Yes Phasic Yes Right Basilic Forearm Normal Yes Phasic Yes Right Radial Normal Yes Phasic Yes Right Ulnar Normal Yes Phasic Yes Left Subclavian Normal Yes Phasic Yes Updated by Lev Yeager MD, FACS on 12/25/2016 6:44:41 PM Lev Yeager MD electronically signed on 12/25/2016 6:45:19 PM with status of Final
[2016-12-25] MEDS ORDERED: Levofloxacin 500 MG/100 ML 500 MG/100 ML BAG IVPB SCH (23:00)
[2016-12-26] MEDS: Piperacillin/Tazobactam 3.375 GM in D5% in Water (Mini-Bag+) 100 ML IVPB SCH ×3 (00:01→23:40)
[2016-12-26] MEDS: Ipratropium/Albuterol Neb 3 ML IH SCH ×4 (05:22→21:41)
[2016-12-26] MEDS: *HR* Heparin 5,000 UNIT/ML VIAL SQ SCH ×2 (06:15→18:33)
[2016-12-26 07:02] LABS: Calcium 8.8 mg/dL (8.6-10.8); Magnesium 1.5 mg/dL (1.6-2.6); Potassium 3.8 mEq/L (3.5-4.5)
[2016-12-26 07:19] LABS: Basophils % 0.4 %; Eosinophils # 0.2 K/mcL (0.0-0.6); Eosinophils % 3.3 %; Hematocrit 29.5 % (37.5-50.1); Hemoglobin 9.7 g/dL (12.9-16.9); Immature Granulocytes % 0.3 % (0-4); Lymphocytes # 1.6 K/mcL (0.6-4.6); Lymphocytes % 22.1 %; Mean Corpuscular HGB Conc 32.9 g/dL (31.6-35.5); Mean Corpuscular Hemoglobin 31.6 pg (28.0-33.3); Mean Corpuscular Volume 96.1 fL (83.0-100.0); Mean Platelet Volume 10.7 fL (9.4-12.4); Monocytes # 1.3 K/mcL (0.0-1.3); Monocytes % 17.8 %; Neutrophils # 4.1 K/mcL (1.6-8.9); Platelet Count 158 K/mcL (140-400); Red Blood Count 3.07 M/mcL (4.19-5.50); Red Cell Distribution Width 13.5 % (11.5-14.5); Segmented Neutrophils % 56.1 %
[2016-12-26] MEDS: Insulin LISPRO 300 UNITS/3 ML VIAL SQ SCH ×3 (08:17→15:46)
[2016-12-26] MEDS: Finasteride 5 MG TABLET PO SCH (08:21)
[2016-12-26] MEDS: Multivit/Ca/Min/Fe/FA 1 TAB TABLET PO SCH (08:22)
[2016-12-26] MEDS: Aspirin Enteric Coated 81 MG Tablet PO SCH (08:22)
[2016-12-26] MEDS: Isosorbide MONOnitrate (24 HR) 30 MG TAB.ER.24H PO SCH (08:22)
[2016-12-26] MEDS: Calcium Acetate 667 MG CAPSULE PO SCH ×3 (08:22→17:38)
[2016-12-26] MEDS: Loratadine 10 MG TABLET PO SCH (08:23)
--- NOTE | 2016-12-26 11:44 | Internal Med Progress Note ---
Date of Encounter: 12/26/16 Time of Encounter: 11:30 - Assessment and plan (1) Hypoglycemia Current Visit: No Status: Acute Assessment and plan: Multifactorial secondary to poor oral intake in the setting of long acting insulin and aspiration pneumonia. Patient missed his supper and later on he was found lethargic. Accu-Chek was 24 on admission, patient was started on D5 NS at 75 ml/hr and next Accu-Cheks have been in the 100-200 range. Speech therapy is following. Off D5 fluids. 12/25: received levemir 7 units at 13:30. 12/26: BS dropped to 64 this morning. He received 7 units of Humalog at bedtime as part of his ISS. hold ISS at bedtime. continue ISS during daytime. levemir 5 units in AM. close monitor. (2) Aspiration into lower respiratory tract Current Visit: Yes Status: Acute Assessment and plan: CXR, with interval worsening of right basilar airspace opacity concerning for aspiration / pneumonia. Continue IV Zosyn. Blood and urine cultures are negative so far. Speech therapy is following. Qualifiers: Encounter type: subsequent encounter Qualified Code(s): T17.800D - Unspecified foreign body in other parts of respiratory tract causing asphyxiation, subsequent encounter (3) Diabetes mellitus Current Visit: No Status: Chronic Assessment and plan: Episode of hypoglycemia. plan as above Qualifiers: Diabetes mellitus type: type 2 Diabetes mellitus complication status: with kidney complications Diabetes mellitus complication detail: with chronic kidney disease Diabetes mellitus senior living insulin use: with senior living use Chronic kidney disease stage: on chronic dialysis Qualified Code(s): E11.22 - Type 2 diabetes mellitus with diabetic chronic kidney disease; N18.6 - End stage renal disease; Z79.4 - snf (current) use of insulin; Z99.2 - Dependence on renal dialysis (4) ESRD (end stage renal disease) Current Visit: No Status: Chronic Assessment and plan: ESRD on HD. 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 Compensated. Continue home meds. (6) Elevated troponin Current Visit: Yes Status: Acute Assessment and plan: Secondary to aspiration pneumonia and episode of hypoglycemia. Supply demand mismatch (7) Hypertension Current Visit: No Status: Chronic Assessment and plan: Continue home meds. Qualifiers: Hypertension type: essential hypertension Qualified Code(s): I10 - Essential (primary) hypertension - Subjective Interval history: BS dropped to 64 this morning. He received 7 units of Humalog at bedtime as part of his ISS. He ate a good breakfast this morning. - Constitutional Vitals: Temp Pulse Resp BP Pulse Ox 98.8 F 85 14 156/75 95 12/26/16 10:44 12/26/16 10:44 12/26/16 10:44 12/26/16 10:44 12/26/16 10:44 General appearance: Present: cooperative, A&O X 3, pleasant, no acute distress, answers questions appropriately - Eye Eye exam: Present: PERRL, sclera anicteric - Neck Neck exam general surgery: Present: supple, trachea midline. Absent: lymphadenopathy - Respiratory Respiratory exam: Present: rhonchi - GI/Abdominal GI/Abdominal exam: Present: normal bowel sounds, soft. Absent: distended, tenderness - Extremities Exam Extremities exam: Absent: pedal edema - Back Exam Back exam: Absent: CVA tenderness (L), CVA tenderness (R) - Skin Skin exam: Present: dry. Absent: rash Internal Medicine: Result - Labs CBC & Chem 7: 12/26/16 06:36 12/26/16 06:36 Labs: Short CBC 12/26/16 Range/Units 06:36 WBC 7.4 (4.3-11.1) K/mcL Hgb 9.7 L (12.9-16.9) g/dL Hct 29.5 L (37.5-50.1) % Plt Count 158 (140-400) K/mcL Neutrophils # 4.1 (1.6-8.9) K/mcL BMP 12/26/16 06:36 Sodium 138 Potassium 3.8 Chloride 96 L Carbon Dioxide 30 H BUN 30 H D Creatinine 3.50 H Glucose 64 L Calcium 8.8 Consult Discharge Plan - Plan Referrals: Dao Klein MD [Non-Partnered Physician] - (patient will follow up with [facility] pcp) Samuel Ruiz MD [Partnered Physician] -
[2016-12-26] MEDS: Magnesium Oxide 400 MG TABLET PO SCH ×2 (12:42→21:46)
[2016-12-26] MEDS ORDERED: Insulin DETEMIR 100 UNIT/ML X5UNITS SQ ONE (15:01)
[2016-12-26] MEDS ORDERED: Insulin LISPRO 300 UNITS/3 ML VIAL SQ SCH (21:00)
[2016-12-27] MEDS: Ipratropium/Albuterol Neb 3 ML IH SCH ×2 (04:41→10:15)
[2016-12-27] MEDS: *HR* Heparin 5,000 UNIT/ML VIAL SQ SCH (06:01)
[2016-12-27 07:29] LABS: Calcium 9.3 mg/dL (8.6-10.8); Magnesium 1.7 mg/dL (1.6-2.6); Potassium 4.6 mEq/L (3.5-4.5)
[2016-12-27] MEDS ORDERED: Insulin DETEMIR 100 UNIT/ML X5UNITS SQ ONE (07:56)
[2016-12-27 07:58] VITALS: BP 146/71
--- NOTE | 2016-12-27 08:55 | Discharge Summary ---
Date of Encounter: 12/27/16 Time of Encounter: 08:30 - Discharge Diagnosis (1) Hypoglycemia Priority: Primary Status: Acute (2) Aspiration into lower respiratory tract Priority: Primary Status: Acute Qualifiers: Encounter type: subsequent encounter Qualified Code(s): T17.800D - Unspecified foreign body in other parts of respiratory tract causing asphyxiation, subsequent encounter (3) Diabetes mellitus Priority: Primary Status: Chronic Qualifiers: Diabetes mellitus type: type 2 Diabetes mellitus complication status: with kidney complications Diabetes mellitus complication detail: with chronic kidney disease Diabetes mellitus fdc insulin use: with termite treater use Chronic kidney disease stage: on chronic dialysis Qualified Code(s): E11.22 - Type 2 diabetes mellitus with diabetic chronic kidney disease; N18.6 - End stage renal disease; Z79.4 - assisted (current) use of insulin; Z99.2 - Dependence on renal dialysis (4) ESRD (end stage renal disease) Priority: Secondary Status: Chronic (5) 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, NYHA class 4 Priority: Secondary Status: Chronic (6) Elevated troponin Priority: Secondary Status: Chronic (7) Hypertension Priority: Secondary Status: Chronic Qualifiers: Hypertension type: essential hypertension Qualified Code(s): I10 - Essential (primary) hypertension - Discharge Medications Prescriptions: OxyCODONE/APAP 5/325 [Percocet 5/325 MG] 1 each PO Q8HR PRN #20 tablet PRN Reason: Pain Amoxicillin/Clavulanate [Augmentin] 875 mg PO BIDWM 3 Days Home Medications: Aspirin Enteric Coated [Aspirin EC] 81 mg PO DAILY 09/21/15 [History] Atorvastatin [Lipitor] 10 mg PO DAILY 09/21/15 [History] Calcium Acetate [Phos-LO] 1,334 mg PO TIDWM 09/21/15 [History] Citalopram [CeleXA] 10 mg PO DAILY 09/21/15 [History] Finasteride [Proscar] 5 mg PO DAILY 09/21/15 [History] Multivitamin/Iron/Folic Acid [Centrum Complete Multivit Tab] 1 tab PO DAILY [History] Nitroglycerin 0.4 mg SL Q5M PRN 09/21/15 [History] Clopidogrel Bisulfate [Plavix] 75 mg PO DAILY 30 Days 07/17/16 [Rx] Carvedilol 3.125 mg PO BID 09/21/16 [History] Docusate Sodium [Dok] 100 mg PO BID 09/21/16 [History] Loratadine [Claritin] 10 mg PO DAILY 09/21/16 [History] Ipratropium/Albuterol Neb [Duoneb] 3 ml IH Q6HR 10/21/16 [History] Isosorbide MONOnitrate (24 HR) [Imdur] 30 mg PO DAILY #20 tab.er.24h 10/21/16 [ Rx] Lidocaine/Prilocaine [Emla] 1 appl TP MOWEFR 12/15/16 [History] Insulin ASPART [NovoLOG] 10 unit SQ TIDAC 12/23/16 [History] Losartan [Cozaar] 50 mg PO DAILY 12/23/16 [History] Amoxicillin/Clavulanate [Augmentin] 875 mg PO BIDWM 3 Days 12/27/16 [Rx] Calcium Acetate [Phos-LO] 1,334 mg PO TIDWM capsule 12/27/16 [Rx] Darbepoetin [Aranesp] 40 mcg SQ QWEEK syringe 12/27/16 [Rx] Insulin DETEMIR [Levemir] 4 unit SQ BID [id number] 12/27/16 [Rx] OxyCODONE/APAP 5/325 [Percocet 5/325 MG] 1 each PO Q8HR PRN #20 tablet 12/27/16 [Rx] Allergies/Adverse Reactions: Allergies No Known Allergies Allergy (Verified 12/15/16 08:24) Procedures/tests Complete & Pending: Procedures Performed prior 72 hours Category Date Time Status EV venous imaging UE RT Routine Y 12/25/16 17:13 Completed Date of admission: 12/23/16 21:34 Primary care physician: Dao Klein MD Consults: 12/23/16 23:01 Consult to Speech Therapy [CONS] Routine Comment: Evaluate, develop and implement POC Reason for Consult: swallow eval for possible aspiration Time Notified: 23:02 Call Completed: No 12/23/16 23:50 Consult to Nephrology [CONS] Routine Consulting Provider: Kidney Maritza/FERNANDA/KRISHNA/LEONA Reason for Consult: Patient establishe patient - ESRD HD MWF Time Notified: 23:50 Call Completed: No 12/24/16 12:24 Consult to Electrical Electronics Technician [CONS] Routine Reason for SW Consult: from [place], wants to go to [facility] 12/24/16 17:13 Consult to Occupational Therapy [CONS] Routine Comment: Evaluate, develop and implement POC - Right hand 12/25/16 08:30 Consult to Dialysis [CONS] ONCE 12/25/16 11:47 Consult to Physical Therapy [CONS] Routine Comment: Evaluate, develop and implement POC - Patient Status Disposition: Transfer SNF Condition: Good Functional capacity at discharge: bed bound - Discharge Instructions Instructions: Diabetic Hypoglycemia (DC), Chronic Hypertension (DC), Pneumonia (DC) Follow Up With: Dao Klein MD [Primary Care Provider] - (patient will follow up with f pcp) Samuel Ruiz MD [Partnered Physician] - - Diet and Activity Activity: as per physical therapy Diet: diabetic diet, other (renal) Interval History: patient ate some of his breakfast. Hospital course: Mr. Dawson is a 89 year old male with past medical history of diabetes mellitus, end-stage renal disease on hemodialysis, chronic diastolic heart failure, hypertension. Patient is a assisted resident who missed his supper received this has regular acting insulin and sliding scale. Later on he was found lethargic. Accu-Chek was 24. He was admitted for hypoglycemia in the setting of diabetes mellitus. Patient was started on D5 normal saline at 75 mL per hour with resolution of his hypoglycemia. Chest urinalysis showed interval development of right basilar airspace opacity concerning for aspiration pneumonia. Speech therapy consulted. Patient's long acting insulin and sliding scale insulin were adjusted. He completed 4 days of IV Zosyn and was discharged on oral Augmentin. PLAN: DO NOT GIVE INSULIN (LEVEMIR OR SLIDING SCALE) IF PATIENT HAS NOT EATEN HIS PREVIOUS MEAL. CLOSE MONITOR OF HIS ACCUCHECKs AND ORAL INTAKE. Chest x- ray to address resolution of right basilar opacity in 4-6 weeks. - Time Spent with Patient Total time spent providing and/or coordinating discharge services: - Constitutional Vitals: Temp Pulse Resp BP Pulse Ox 98.2 F 97 16 146/71 98 12/27/16 07:55 12/27/16 07:55 12/27/16 07:55 12/27/16 07:55 02/26/17 07:55 General appearance: Present: cooperative, A&O X 3, pleasant, no acute distress, answers questions appropriately - Eye Eye exam: Present: PERRL, sclera anicteric - Neck Neck exam general surgery: Present: supple, trachea midline. Absent: lymphadenopathy - Respiratory Respiratory exam: Present: rhonchi (at left base) - Cardiovascular Cardiovascular exam: Present: RRR - GI/Abdominal GI/Abdominal exam: Present: normal bowel sounds, soft. Absent: distended, tenderness - Extremities Exam Extremities exam: Absent: pedal edema - Back Exam Back exam: Absent: CVA tenderness (L), CVA tenderness (R) - Skin Skin exam: Absent: excoriation, rash
[2016-12-27] MEDS ORDERED: Insulin DETEMIR 100 UNIT/ML X5UNITS SQ SCH (09:00)
--- NOTE | 2016-12-27 09:02 | Physician Discharge Referral ---
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, NYHA class 4 Status: Chronic (6) Elevated troponin Status: Chronic (7) Hypertension Status: Chronic - Transfer Medications Prescriptions: OxyCODONE/APAP 5/325 [Percocet 5/325 MG] 1 each PO Q8HR PRN #20 tablet PRN Reason: Pain Amoxicillin/Clavulanate [Augmentin] 875 mg PO BIDWM 3 Days Home Medications: Aspirin Enteric Coated [Aspirin EC] 81 mg PO DAILY 09/21/15 [History] Atorvastatin [Lipitor] 10 mg PO DAILY 09/21/15 [History] Calcium Acetate [Phos-LO] 1,334 mg PO TIDWM 09/21/15 [History] Citalopram [CeleXA] 10 mg PO DAILY 09/21/15 [History] Finasteride [Proscar] 5 mg PO DAILY 09/21/15 [History] Multivitamin/Iron/Folic Acid [Centrum Complete Multivit Tab] 1 tab PO DAILY [History] Nitroglycerin 0.4 mg SL Q5M PRN 09/21/15 [History] Clopidogrel Bisulfate [Plavix] 75 mg PO DAILY 30 Days 07/17/16 [Rx] Carvedilol 3.125 mg PO BID 09/21/16 [History] Docusate Sodium [Dok] 100 mg PO BID 09/21/16 [History] Loratadine [Claritin] 10 mg PO DAILY 09/21/16 [History] Ipratropium/Albuterol Neb [Duoneb] 3 ml IH Q6HR 10/21/16 [History] Isosorbide MONOnitrate (24 HR) [Imdur] 30 mg PO DAILY #20 tab.er.24h 10/21/16 [ Rx] Lidocaine/Prilocaine [Emla] 1 appl TP MOWEFR 12/15/16 [History] Insulin ASPART [NovoLOG] 10 unit SQ TIDAC 12/23/16 [History] Losartan [Cozaar] 50 mg PO DAILY 12/23/16 [History] Amoxicillin/Clavulanate [Augmentin] 875 mg PO BIDWM 3 Days 12/27/16 [Rx] Calcium Acetate [Phos-LO] 1,334 mg PO TIDWM capsule 12/27/16 [Rx] Darbepoetin [Aranesp] 40 mcg SQ QWEEK syringe 12/27/16 [Rx] Insulin DETEMIR [Levemir] 4 unit SQ BID [id number] 12/27/16 [Rx] OxyCODONE/APAP 5/325 [Percocet 5/325 MG] 1 each PO Q8HR PRN #20 tablet 12/27/16 [Rx] Allergies/Adverse Reactions: Allergies No Known Allergies Allergy (Verified 12/15/16 08:24) - Respiratory Orders Oxygen / L per min (3) Smoking Cessation: Smoking cessation has been advised. For more information, call the [employer] Quit Line at 4-287-QKJP-NOW. - Ancillary Orders May use pressure relief devices daily prn - Advance Directives Code Status: DNR-Comfort Care - Mobility Orders Other (Per PT) - Rehabiliation Orders Rehab Potential: Fair Rehab Orders: Evaluation for Physical Therapy, Evaluation for Occupational Therapy - Treatments Skin tear care topically daily PRN per policy List/Other: DO NOT GIVE INSULIN (LEVEMIR OR SLIDING SCALE) IF PATIENT HAS NOT EATEN HIS PREVIOUS MEAL. CLOSE MONITOR OF HIS ACCUCHECKs AND ORAL INTAKE. - Diet Orders No Concentrated Sweets, Renal CERTIFICATION: I certify that the transfer of the above named patient to an Extended Care Facility is necessary for the continuing treatment of the diagnosis listed. The above information is true and accurate reflection of patient's current condition. Confidential - Redisclosure prohibited without a patient's written consent.
[2016-12-27] MEDS: Insulin LISPRO 300 UNITS/3 ML VIAL SQ SCH ×2 (09:11→12:05)
[2016-12-27] MEDS: Aspirin Enteric Coated 81 MG Tablet PO SCH (09:12)
[2016-12-27] MEDS: Loratadine 10 MG TABLET PO SCH (09:12)
[2016-12-27] MEDS: Isosorbide MONOnitrate (24 HR) 30 MG TAB.ER.24H PO SCH (09:12)
[2016-12-27] MEDS: Calcium Acetate 667 MG CAPSULE PO SCH ×2 (09:12→12:04)
[2016-12-27] MEDS: Multivit/Ca/Min/Fe/FA 1 TAB TABLET PO SCH (09:12)
[2016-12-27] MEDS: Finasteride 5 MG TABLET PO SCH (09:12)
== END 2016-12-27 13:19 ==
LOC: EMEROO 19:16 → 2ANU 19:16
PROVIDERS: ADMIT Pediatrics; ATTEND Internal Medicine